=== PATIENT | female | born 1935 | race Caucasian/White ===

== ENCOUNTER → 2017-12-31 | Outpatient (CLI) | payer OTHER ==
[~2017-12-31] MED LIST: ACET325 PO; AMLO5 PO; ASCO500 PO; ASPI81CH PO; AVANDIA 8 MG QD; BISA10S PR; CALGLU500; CEFU250T47 PO; CEPH500 PO; CHLO25B PO; CHOL10002 PO; Calcium 600 +1 EAC1 PO; Cipro250 MG PO; DIPH50 PO; DOC250 PO; DOCU100 PO; FERR325 PO; FISH OIL 1,2001 EAC1 PO; FISH OIL 1,2001 EACH PO; FURO20 PO; FURO40 PO; GAVILAX17 GM PO; GLIM2; GLUC500 PO; GLYB5; Glucosamine H1500 MG PO; HUMALOG KW200 UNIT/1 SC; HYDR1TAB94 PO; Hair, Skin & N1 EACH PO; Hydrocodone-Ap1 EA23 PO; INSLI75/25 SC; IRON; ISOMON20 PO; Isosorbide Dini30 MG PO; LISI20 PO; LISI5 PO; LOSA25 PO; LOSA50 PO; Lasix20 MG PO; METO25 PO; METO25ER PO; MIRALAX17 GM PO; Macrobid 100 M100 MG PO; Milk Of Ma400 MG/5 M PO; NAC600 MG PO; NOVOLIN 70100 UNIT/1 SC; Norco 5-325 Ta1 EACH PO; ONDA8 PO; Oyst-Cal-500500 MG PO; POTCHL10ER PO; PROACE100 PO; RANI150 PO; RISE35; RISE35 PO; ROSI4; ROSU10TA PO; SENN187 PO; VALS80; VITA&DTO TOP; Zantac150 MG PO; Zofran Odt4 MG SL; Zofran Odt8 MG SL
[2017-12-31 16:31] LABS: BASOPHILS ABSOLUTE AUTO 0.08 K/mm3 (0.00-0.23); BASOPHILS PERCENT AUTO 1 % (0-2); EOSINOPHILS ABSOLUTE AUTO 0.82 K/mm3 (0.00-0.68); EOSINOPHILS PERCENT AUTO 10 % (0-6); Hematocrit 32.4 % (33.0-51.0); Hemoglobin 10.9 g/dL (11.5-16.0); IMMATURE GRAN ABSOLUTE AUTO 0.04 K/mm3 (0.00-0.10); IMMATURE GRAN PERCENT AUTO 1 % (0-1); LYMPHOCYTES PERCENT AUTO 21 % (21-46); MONOCYTES ABSOLUTE AUTO 0.75 K/mm3 (0.16-1.47); MONOCYTES PERCENT AUTO 9 % (4-13); Mean Corpuscular HGB 32.8 pg (26.0-34.0); Mean Corpuscular HGB Conc 33.6 g/dL (31.5-36.5); Mean Corpuscular Volume 98 fL (80-100); Mean Platelet Volume 10.3 fL (9.1-12.4); NEUTROPHILS ABSOLUTE AUTO 5.13 K/mm3 (1.96-9.15); NEUTROPHILS PERCENT AUTO 60 % (41-73); Platelet Count 252 K/mm3 (150-400); RDW Coefficient Variation 13.5 % (11.7-14.2); RDW Standard Deviation 48.3 fL (35.1-46.3); Red Blood Cell Count 3.32 M/mm3 (3.80-5.20); White Blood Cell Count 8.62 K/mm3 (4.00-11.30)
[2017-12-31 16:46] LABS: Anion Gap 8 mmol/L (6-16); Blood Urea Nitrogen 50 mg/dL (8-24); Bun/Creatinine Ratio 25.4 (12.0-20.0); CO2, Blood 29 mmol/L (21-32); Calcium, Blood 9.7 mg/dL (8.5-10.1); Chloride, Blood 99 mmol/L (98-108); Creatinine, Blood 1.97 mg/dL (0.40-1.00); Glomerular Filtration Rate 24 (60-); Glucose, Blood 302 mg/dL (70-99); Potassium, Blood 4.1 mmol/L (3.5-5.5); Sodium, Blood 136 mmol/L (136-145); Troponin I <0.017 ng/mL (0.000-0.040)
== END | disposition home or self-care (01) ==
LOC: LAB EV 16:28
PROVIDERS: Physician Assistant Surgical
DX: R42 Dizziness and giddiness (principal)
CPT/HCPCS: 80048; 84484; 85025

== ENCOUNTER 2019-02-03 13:26 | Inpatient (IN) | payer OTHER ==
[~2019-02-03] VITALS: Ht 167.6 cm; Wt 101.8 kg
[2019-02-03] MEDS ORDERED: Hair, Skin & N1 EACH PO (13:43)
[2019-02-03] MEDS ORDERED: Lopressor 25 mg25 MG PO ×2 (13:43)
[2019-02-03] MEDS ORDERED: NOVOLIN 70100 UNIT/2 SC (13:44)
[2019-02-03 14:11] LABS: BASOPHILS PERCENT AUTO 2 % (0-2); EOSINOPHILS ABSOLUTE AUTO 0.52 K/mm3 (0.00-0.68); EOSINOPHILS PERCENT AUTO 10 % (0-6); IMMATURE GRAN ABSOLUTE AUTO 0.01 K/mm3 (0.00-0.10); IMMATURE GRAN PERCENT AUTO 0 % (0-1); LYMPHOCYTES ABSOLUTE AUTO 1.35 K/mm3 (0.84-5.20); LYMPHOCYTES PERCENT AUTO 26 % (21-46); MONOCYTES ABSOLUTE AUTO 0.58 K/mm3 (0.16-1.47); MONOCYTES PERCENT AUTO 11 % (4-13); Mean Corpuscular HGB 31.6 pg (26.0-34.0); Mean Corpuscular HGB Conc 32.3 g/dL (31.5-36.5); Mean Corpuscular Volume 98 fL (80-100); Mean Platelet Volume 10.7 fL (9.1-12.4); NEUTROPHILS ABSOLUTE AUTO 2.55 K/mm3 (1.96-9.15); NEUTROPHILS PERCENT AUTO 50 % (41-73); Platelet Count 241 K/mm3 (150-400); RDW Coefficient Variation 14.3 % (11.7-14.2); RDW Standard Deviation 51.4 fL (35.1-46.3); Red Blood Cell Count 3.16 M/mm3 (3.80-5.20); White Blood Cell Count 5.11 K/mm3 (4.00-11.30)
[2019-02-03 14:18] LABS: Alanine Aminotransfer (ALT/SGP 19 U/L (12-78); Albumin, Blood 3.3 g/dL (3.4-5.0); Albumin/Globulin Ratio 0.8 (0.8-1.8); Alk Phos 77 U/L (50-136); Anion Gap 5 mmol/L (6-16); Aspartate Aminotrans (AST/SGOT 15 U/L (12-37); Bilirubin, Total 0.2 mg/dL (0.1-1.0); Blood Urea Nitrogen 40 mg/dL (8-24); Bun/Creatinine Ratio 25.2 (12.0-20.0); CO2, Blood 24 mmol/L (21-32); Calcium, Blood 8.5 mg/dL (8.5-10.1); Chloride, Blood 105 mmol/L (98-108); Creatinine, Blood 1.59 mg/dL (0.40-1.00); Globulin, Blood 3.9 g/dL (2.2-4.0); Glomerular Filtration Rate 33 (60-); Glucose, Blood 216 mg/dL (70-99); Potassium, Blood 5.5 mmol/L (3.5-5.5); Sodium, Blood 134 mmol/L (136-145); Total Protein, Blood 7.2 g/dL (6.4-8.2); Troponin I <0.015 ng/mL (0.000-0.040)
[2019-02-03] MEDS ORDERED: Pacerone100 MG PO ×2 (14:21)
[2019-02-03] MEDS ORDERED: DOC250 PO ×2 (14:24)
[2019-02-03] MEDS ORDERED: AMLO5 PO (14:24)
[2019-02-03] MEDS ORDERED: ELIQUIS2.5 MG PO (14:24)
[2019-02-03] MEDS ORDERED: TUMS500 MG PO (14:24)
[2019-02-03 14:25] LABS: Magnesium, Blood 2.1 mg/dL (1.6-2.4)
[2019-02-03] MEDS ORDERED: FISH OIL 500 M1 EAC3 PO (14:25)
[2019-02-03] MEDS ORDERED: BISA10S PR (14:25)
[2019-02-03] MEDS ORDERED: ROSU10TA PO (14:26)
[2019-02-03] MEDS ORDERED: Ranitidine HCl150 M1 PO (14:26)
[2019-02-03] MEDS ORDERED: Norco 7.5-3251 EACH PO (14:26)
[2019-02-03 14:27] LABS: Free Thyroxine 1.21 ng/dL (0.70-1.60); Thyroid Stimulating Hormone 26.8 uIU/mL (0.360-4.800)
[2019-02-03] MEDS ORDERED: GLUC500 PO (14:27)
[2019-02-03] MEDS ORDERED: FURO20 PO (14:27)
[2019-02-03] MEDS ORDERED: LOSA50 PO (14:27)
[2019-02-03] MEDS ORDERED: Synthroid112 MCG PO (14:27)
[2019-02-03] MEDS ORDERED: CHOL10002 PO (18:56)
[2019-02-03] MEDS ORDERED: HYDR1TAB94 PO (18:59)
[2019-02-03] MEDS ORDERED: FISH OIL 500 M1 EAC1 PO (19:00)
--- NOTE | 2019-02-03 20:29 | NUR ---
ASSUMED CARE OF PT, REPORT RECEIVED FROM PADMAJA ABREU. PT ALERT AND ORIENTED, PT'S SON AT BEDSIDE. PT REQUESTS CODE STATUS TO BE CHANGED TO LIMITED CODE, SHE DOES NOT WANT TO BE INTUBATED. PT CONTINUES TO BE BRADYCARDIC BUT ASYMPTOMATIC. SEE FULL ADMISSION ASSESSMENT.
--- NOTE | 2019-02-03 21:13 | NUR ---
CODE STATUS CHANGE. ORDER RECEIVED FROM BRANDON TO UPDATE PT'S CODE STATUS TO LIMITED PER PT'S REQUEST. PER PT ALL MEDICAL INTERVENTIONS OK EXCEPT INTUBATION. ORDER FOR Q6 CBG'S PLACED AND HUMOLOG JULIETA.
[2019-02-04 03:30] LABS: BASOPHILS ABSOLUTE AUTO 0.07 K/mm3 (0.00-0.23); BASOPHILS PERCENT AUTO 1 % (0-2); EOSINOPHILS ABSOLUTE AUTO 0.58 K/mm3 (0.00-0.68); EOSINOPHILS PERCENT AUTO 11 % (0-6); Hematocrit 30.4 % (33.0-51.0); Hemoglobin 10.1 g/dL (11.5-16.0); IMMATURE GRAN ABSOLUTE AUTO 0.01 K/mm3 (0.00-0.10); IMMATURE GRAN PERCENT AUTO 0 % (0-1); LYMPHOCYTES ABSOLUTE AUTO 1.68 K/mm3 (0.84-5.20); LYMPHOCYTES PERCENT AUTO 33 % (21-46); MONOCYTES ABSOLUTE AUTO 0.49 K/mm3 (0.16-1.47); MONOCYTES PERCENT AUTO 10 % (4-13); Mean Corpuscular HGB 32.5 pg (26.0-34.0); Mean Corpuscular HGB Conc 33.2 g/dL (31.5-36.5); Mean Corpuscular Volume 98 fL (80-100); Mean Platelet Volume 10.1 fL (9.1-12.4); NEUTROPHILS PERCENT AUTO 45 % (41-73); Platelet Count 232 K/mm3 (150-400); RDW Standard Deviation 50.1 fL (35.1-46.3); Red Blood Cell Count 3.11 M/mm3 (3.80-5.20); White Blood Cell Count 5.13 K/mm3 (4.00-11.30)
[2019-02-04 03:44] LABS: Prothrombin Time Results 10.6 Sec (9.7-11.5)
[2019-02-04 03:50] LABS: Albumin, Blood 3.1 g/dL (3.4-5.0); Albumin/Globulin Ratio 0.8 (0.8-1.8); Bilirubin, Total 0.4 mg/dL (0.1-1.0); Bun/Creatinine Ratio 24.6 (12.0-20.0); Calcium, Blood 8.7 mg/dL (8.5-10.1); Creatinine, Blood 1.42 mg/dL (0.40-1.00); Globulin, Blood 3.7 g/dL (2.2-4.0); Magnesium, Blood 2.1 mg/dL (1.6-2.4); Potassium, Blood 4.4 mmol/L (3.5-5.5); Total Protein, Blood 6.8 g/dL (6.4-8.2)
--- NOTE | 2019-02-04 06:15 | NUR ---
SHIFT SUMMARY HR CURRENTLY IN MID 50'S. PT HAD SEVERAL ASYMPTOMATIC PERIODS OF BRADYCARDIA WITH HR FROM 32-41. PT PLACED ON 2L O2 OVERNIGHT SATS DROPPED TO MID 80'S WHILE SLEEPING. PT REMAINS ALERT AND ORIENTED. PT DENIES PAIN, SOB, OR DIZZINESS. WILL REPORT TO DAYSHIFT NURSE.
--- NOTE | 2019-02-04 07:38 | NUR ---
CARE ASSUMED CARE AND REPORT ASSUMED FROM ERICK GIANG. PT SITTING UP IN BED WATCHING TV. NO SIGNS OF ACUTE DISTRESS. NSR, BBB, HR 50-60S. BP STABLE. AFEBRILE. PT UP TO BEDSIDE COMMODE WITH MINIMAL ASSIST. TALKED WITH PT ABOUT NEED TO REMAIN NPO UNTIL FURTHER PLAN FROM DOUBLE NEEDLE OPERATOR LOCKSTITCH; PT DISPLAYS UNDERSTANDING. NS INFUSING AT 50 ML/HR PER ORDER. LUNG SOUNDS CLEAR. CALL LIGHT WITHIN REACH. DEFIB PADS SECURED ON PT. WILL CONTINUE TO MONITOR.
--- NOTE | 2019-02-04 12:30 | NUR ---
ECHOCARDIOGRAM COMPLETE
--- NOTE | 2019-02-04 12:57 | NUR ---
REASSESSMENT PT SITTING UP IN BED VISITING WITH FAMILY. NO COMPLAINTS AND NO ACUTE DISTRESS AT THIS TIME. PT OUT OF BED WITH MINIMAL ASSIST. VOIDING IN BEDSIDE COMMODE WITH NO ISSUES. AFEBRILE. REMAINS IN NSR WITH BBB, HR 50-60S. SEEN BY MD MONTOYA THIS AM. ECHO, EKG, AND REPEAT TROPONIN COMPLETED. AWAITING STRESS TEST. NS CONTINUES TO INFUSE AT 50 ML/HR PER ORDER. WILL CONTINUE TO MONITOR.
--- NOTE | 2019-02-04 17:01 | NUR ---
REASSESSMENT 1630 - PT TAKEN DOWN FOR NUCLEAR STRESS TEST. VSS. NO ACUTE DISTRESS. PT UP TO BEDSIDE COMMODE WITH MINIMAL ASSIST. DENIES PAIN AT THIS TIME. CALL LIGHT WITHIN REACH. NS INFUSING AT 50 ML/HR PER ORDER. WILL CONITNUE TO MONITOR.
--- NOTE | 2019-02-04 18:19 | NUR ---
SHIFT SUMMARY VSS ENTIRE SHIFT. PT HAS BEEN IN NSR, WITH BBB, AND HR 50-70 ENTIRE SHIFT. STABLE AND NORMAL BP. AFEBRILE. NO C/O PAIN DURING SHIFT. PT HAD ECHO, EKG AND FIRST PART OF L[place] STRESS TEST COMPLETED TODAY. FAMILY BEDSIDE TO VISIT WITH HER. PT ABLE TO GET OUT OF BED AND ONTO BEDSIDE COMMODE WITH MINIMAL ASSIST. NS INFUSING AT 50 ML/HR PER ORDER. A/O X3, CALM AND COOPERATIVE ENTIRE SHIFT. WILL GIVE BEDSIDE, HANDOFF REPORT TO NOC RN.
--- NOTE | 2019-02-04 19:15 | NUR ---
REPORT RECIEVED FROM OFF GOING RN,KINJAL,. MONITOR INTACT SHOWING SINUS RHYTHM. HEART RATE 60'S. DENIES DISCOMFORT. LUNG SOUNDS CLEAR. RESPIRATIONS REGULAR AND EASY ON ROOM AIR. SPO2 96-98%. ABDOMEN SOFT WITH BOWEL SOUNDS FOUR QUADS. PAS TO LOWER EXTREMITIES. NO EDEMA NOTED PEDAL PULSES PRESENT. REPOSITIONS SELF IN BED. CONTINUE TO MONITOR AND REPORT CHANGE IN PATIENT CONDITION.
--- NOTE | 2019-02-05 00:05 | NUR ---
O2 PLACED AT 2L/MIN SECONDARY TO DECREASED SATURATIONS OF 84-89% CONTINUE TO MONITOR AND REPORT CHANGE IN PATIENT CONDITION.
[2019-02-05 03:32] LABS: BASOPHILS ABSOLUTE AUTO 0.07 K/mm3 (0.00-0.23); BASOPHILS PERCENT AUTO 1 % (0-2); EOSINOPHILS PERCENT AUTO 12 % (0-6); Hematocrit 30.8 % (33.0-51.0); Hemoglobin 9.9 g/dL (11.5-16.0); IMMATURE GRAN ABSOLUTE AUTO 0.01 K/mm3 (0.00-0.10); IMMATURE GRAN PERCENT AUTO 0 % (0-1); LYMPHOCYTES ABSOLUTE AUTO 1.46 K/mm3 (0.84-5.20); LYMPHOCYTES PERCENT AUTO 29 % (21-46); MONOCYTES ABSOLUTE AUTO 0.44 K/mm3 (0.16-1.47); MONOCYTES PERCENT AUTO 9 % (4-13); Mean Corpuscular HGB 31.4 pg (26.0-34.0); Mean Corpuscular HGB Conc 32.1 g/dL (31.5-36.5); Mean Corpuscular Volume 98 fL (80-100); Mean Platelet Volume 10.5 fL (9.1-12.4); NEUTROPHILS PERCENT AUTO 49 % (41-73); Platelet Count 223 K/mm3 (150-400); RDW Coefficient Variation 14.1 % (11.7-14.2); RDW Standard Deviation 50.4 fL (35.1-46.3); Red Blood Cell Count 3.15 M/mm3 (3.80-5.20); White Blood Cell Count 5.08 K/mm3 (4.00-11.30)
[2019-02-05 03:51] LABS: Albumin, Blood 3.1 g/dL (3.4-5.0); Albumin/Globulin Ratio 0.9 (0.8-1.8); Bilirubin, Total 0.2 mg/dL (0.1-1.0); Bun/Creatinine Ratio 27.3 (12.0-20.0); Calcium, Blood 8.4 mg/dL (8.5-10.1); Creatinine, Blood 1.28 mg/dL (0.40-1.00); Globulin, Blood 3.6 g/dL (2.2-4.0); Potassium, Blood 4.6 mmol/L (3.5-5.5); Total Protein, Blood 6.7 g/dL (6.4-8.2)
--- NOTE | 2019-02-05 06:15 | NUR ---
SHIFT SUMMARY: RESTS QUIETLY WHEN UNDISTURBED. MONITOR INTACT SHOWING SINUS RHYTHM HEART RATE 60'S-70'S. DENIES DISCOMFORT. LUNGS CLEAR RESPIRATIONS REGULAR AND EASY. ABDOMEN SOFT WITH BOWEL SOUNDS FOUR QUADS. UP TO BEDSIDE COMMODE WITH ONE ASSIST GAIT STEADY. VOIDS KRISTIN ODORIFOURUS URINE. PAS TO LOWER EXTREMITIES.NO EDEMA NOTED CONTINUE TO MONITOR AND REPORT CHANGE IN PATIENT CONDITION
--- NOTE | 2019-02-05 09:23 | NUR ---
CARE ASSUMED CARE AND REPORT ASSUMED FROM JEVON GIANG. PT A/O X 3, CALM AND COOPERATIVE. DENIES PAIN AT THIS TIME. VSS. NSR, HR 60S. AM EKG COMPLETED. MD NAM WAS BEDSIDE TO TALK WITH PT. PT NPO FOR STRESS TEST PART 2. UP TO CHAIR WITH MINIMAL ASSIST. BP STABLE. CALL LIGHT WITHIN REACH. AFEBRILE. LUNG SOUNDS CLEAR. AM MEDS HELD SINCE PT IS NPO AND STATES SHE GETS UPSET STOMACH WHEN TAKING MEDS ON EMPTY STOMACH. WILL CONTINUE TO MONITOR.
--- NOTE | 2019-02-05 10:43 | NUR ---
Pt ref bath at this time. Wanted heat turned up. Says she will see about having a bath once her test is done. RN notified.
--- NOTE | 2019-02-05 12:10 | NUR ---
REASSESSMENT PT SITTING UP IN RECLINER CHAIR. DENIES PAIN AT THIS TIME. VSS. NSR, HR 60S. NO COMPLAINTS AND NO ACUTE DISTRESS. NPO FOR STRESS TEST PART 2 AT 1230. CONTINUING TO HOLD MEDS UNTIL AFTER TEST. WILL CONTINUE TO MONITOR.
[2019-02-05 13:44] LABS: Source, Urine Voided
[2019-02-05 13:57] LABS: Bilirubin, Urine Neg (Neg); Blood, Urine 2+ (Neg); Glucose Qualitative, Urine Neg (Neg); Ketones, Urine Neg (Neg); Leukocyte Esterase, Urine 3+ (Neg); Nitrite, Urine Neg (Neg); Protein, Urine 2+ (Neg); Urobilinogen, Urine NORM (Normal)
--- NOTE | 2019-02-05 14:03 | NUR ---
TRANSFER REPORT CALLED TO [facility] IN PCU. VSS. BP DECREASING SINCE RECEIVING LOSARTAN. PT TO BE TRANSFERRED TO PCU 4. HAS FINISHED EATING LUNCH, ALONG WITH SOME FATTY FOOD.
[2019-02-05 14:13] LABS: Appearance, Urine Hazy (Clear); Color, Urine Yellow (P-Yellow)
[2019-02-05 14:14] LABS: Bacteria Many /hpf; Squamous Epithelial Cells Few /hpf (Few); White Blood Cells, Urine TNTC /hpf (0-5)
--- NOTE | 2019-02-05 14:24 | NUR ---
ASSUMED CARE Assumed care of pt upon arrival to unit at 1409. Telephone report received from Lydia GIANG. Pt arrived via wheelchair with Kami CSAE. Pt transferred from wheelchair to bed with SBA. Pt on room air. SR per telemetry with BBB. Bed in lowest position. Call light in reach. Pt denies need at this time.
--- NOTE | 2019-02-05 17:32 | NUR ---
SHIFT SUMMARY No changes since arrival to unit. No events per telemetry. Will continue to closely monitor until care handoff and bedside report with oncoming RN.
[2019-02-06 04:23] LABS: BASOPHILS ABSOLUTE AUTO 0.09 K/mm3 (0.00-0.23); BASOPHILS PERCENT AUTO 2 % (0-2); EOSINOPHILS ABSOLUTE AUTO 0.62 K/mm3 (0.00-0.68); EOSINOPHILS PERCENT AUTO 11 % (0-6); Hematocrit 30.9 % (33.0-51.0); Hemoglobin 10.1 g/dL (11.5-16.0); IMMATURE GRAN ABSOLUTE AUTO 0.01 K/mm3 (0.00-0.10); IMMATURE GRAN PERCENT AUTO 0 % (0-1); LYMPHOCYTES ABSOLUTE AUTO 1.47 K/mm3 (0.84-5.20); LYMPHOCYTES PERCENT AUTO 26 % (21-46); MONOCYTES ABSOLUTE AUTO 0.63 K/mm3 (0.16-1.47); MONOCYTES PERCENT AUTO 11 % (4-13); Mean Corpuscular HGB 32.6 pg (26.0-34.0); Mean Corpuscular HGB Conc 32.7 g/dL (31.5-36.5); Mean Corpuscular Volume 100 fL (80-100); Mean Platelet Volume 10.6 fL (9.1-12.4); NEUTROPHILS ABSOLUTE AUTO 2.88 K/mm3 (1.96-9.15); NEUTROPHILS PERCENT AUTO 50 % (41-73); Platelet Count 235 K/mm3 (150-400); RDW Coefficient Variation 13.8 % (11.7-14.2); RDW Standard Deviation 50.5 fL (35.1-46.3)
[2019-02-06 04:45] LABS: Albumin, Blood 2.9 g/dL (3.4-5.0); Albumin/Globulin Ratio 0.8 (0.8-1.8); Bilirubin, Total 0.4 mg/dL (0.1-1.0); Bun/Creatinine Ratio 26.7 (12.0-20.0); Calcium, Blood 8.5 mg/dL (8.5-10.1); Creatinine, Blood 1.16 mg/dL (0.40-1.00); Free Thyroxine 1.21 ng/dL (0.70-1.60); Globulin, Blood 3.5 g/dL (2.2-4.0); Potassium, Blood 4.8 mmol/L (3.5-5.5); Total Protein, Blood 6.4 g/dL (6.4-8.2)
[2019-02-06 04:50] LABS: Thyroid Stimulating Hormone 12.7 uIU/mL (0.360-4.800)
--- NOTE | 2019-02-06 05:59 | NUR ---
SHIFT SUMMARY: PATIENT DID WELL, COMPLIANT, VSS, WALKING TO RESTROOM WITH 1 FWW AND SBA. PATIENT COMPLIANT, BED LOW AND LOCKED, SKIN IS C/D/I
--- NOTE | 2019-02-06 14:47 | NUR ---
PT TO [facility]ART CENTER FOR ANGIO.
--- NOTE | 2019-02-06 16:39 | NUR ---
PT ARRIVED BACK TO PCU 4 VIA BED FROM [facility] POST ANGIO. PT AWAKE. DENIES ANY COMPLAINTS. RIGHT GROIN SITE WITH SILVINA DRESSING WITH SCANT OOZING NOTED, NO HEMATOMA, PAIN OR BLEEDING NOTED. PT NOTED TO HAVE BP OF 87/41. DR LOPEZ NOTIFIED AND STAT CT OF ABD ORDERED. HEART CENTER NURSE CALLED BACK AND REPORTED THEY HAD PREVISOULY GIVEN PT HYDRALAZINE X2 AND PLACED NITRO PASTE. NITRO PASTE REMOVED AT THIS TIME. DR LOPEZ REPORTS CONT WITH STAT CT TO R/O RETROPERITONEAL BLEED. BP NOW 101/42. SITE REMAINS UNCHANGED. FAMILY AT BEDSIDE AT THIS TIME.
--- NOTE | 2019-02-06 16:45 | NUR ---
PT TO IMAGING FOR CT ABD.
--- NOTE | 2019-02-06 16:49 | NUR ---
Patient gives student nurse permission to provide care on 02/06/2019.
--- NOTE | 2019-02-06 17:21 | NUR ---
SHIFT SUMMARY- PT A/OX4. PT REPORTS 5/10 CHRONIC BACK PAIN BUT DENIES NEED FOR PAIN MEDS. LS CLEAR, DIMINISHED IN THE BASES, ON RA, DENIES SOB. HRR. TELE SE WITH BBB AT 77. PT WITH ANGIO THIS AFTERNOON WITH SILVINA DRESSING OVER SITE, MINIMAL OOZING FRO SITE, NO SIGNS OF HEMATOMA, PAIN, OR BLEEDING. BP LOW AT ARRIVAL TO FLOOR, PT GIVEN NITRO PASTE AND HYDRALAZINE AT [facility]ART CENTER, NITRO PASTE REMOVED. CT ABD COMPLETED TO R/O BLEED. BLOOD PRESSURE NOW 131/52 1 HR POST ARRIVAL TO ROOM. NO STENTS PLACED PER HEART CENTER RN. PT REMAINS LYING FLAT AT THIS TIME. NO OTHER ACUTE CHANGES THIS SHIFT.
--- NOTE | 2019-02-06 17:26 | NUR ---
CT RESULTS CALLED TO DR LOPEZ PER HIS REQUEST. NO NOTED BLEED. BP NOW 131/52. NO SIGNS OF BLEEDING, HEMATOMA, SWELLING, OR PAIN.
--- NOTE | 2019-02-06 19:30 | NUR ---
ASSUMED CARE PT RESTING IN ROOM COMFORTABLY AT THIS TIME. PER DAY SHIFT RN PT IS STATUS POST ANGIO W/ SITE TO R GROIN. PT IS AOX4 AFTER PROCEDURE. VITAL SIGNS HAVE REMAINED STABLE. GROIN SITE INSPECTED W/ DAY RN, SITE WNL, SILVINA PATCH TO SITE AND NO BLOOD NOTED TO AREA. PER DAY SHIFT NO INTERVENTIONS WERE PLACED DURING ANGIO. SITE IS SOFT TO PALP NO HEMATOMAS NOTED. RESP EVEN UNLABORED ON RA SATS >92%. PT DENIES CP OR SOB. DENIES OTHER NEEDS. WILL CONT TO MONITOR. CALL LIGHT IN REACH.
--- NOTE | 2019-02-06 20:45 | NUR ---
ANGIO SITE BLEEDING PT WAS SAT UP TO ATTEMPT TO USE BEDPAN. ANGIO SITE NOTED TO HAVE STARTED BLEEDING. PT WAS LAID BACK IMMEDIATETLY AND PRESSURE APPLIED TO AREA. BLEEDING NOTED TO BE SLOW OOZING, NO PULSATING NOTED. SILVINA PATCH SATURATED WITH BLOOD. NO HEMATOMA NOTED TO SITE. SURROUNDING TISSUE NOTED TO BE SOFT TO PALP. PT REPORTS TENDERNESS TO AREA, NOT INCREASED FROM BEORE. PRESSURE HELD FOR 15 MIN SITE INSPECTED, NO FURTHER BLEEDING NOTED. GAUZE PAD APPLIED NEW TEGADERM APPLIED TO AREA. PT EDUCATED ON NEED TO REMAIN BEDFAST FOR OBSERVATION LONGER.
--- NOTE | 2019-02-07 05:34 | NUR ---
SHIFT SUMMARY PT SLEEPING IN ROOM COMFORTABLY. PT SLEPT WELL T/O NIGHT. AT APPROX 2030 ATTEMPTED TO SIT PT UP AFTER STATUS POST ANGIO. BLEEDING TO R GROIN SITE NOTED. PT LAID BACK FLAT AND PRESSURE APPLIED. BLEEDING WAS NOT ARTERIAL. NEW DRESSING PLACED. NO BLEEDING WAS NOTED TO SITE T/O NIGHT. PT NOW ABLE TO SIT UPRIGHT AT 45 DEGREE ANGLE WITH FEET ELEVATED. PT DOES NOT WANT TO STAND YET AT THIS POINT. REPORTS WILL STAND LATER THIS AM. RESP EVEN UNLABORED ON RA SATS >92%. DENIES PAIN, OTHER THAN TENDERNESS TO GROIN SITE. SITE WNL NO HEMATOMAS NOTED. CALL LIGHT WITHIN REACH.
[2019-02-07 05:42] LABS: BASOPHILS ABSOLUTE AUTO 0.08 K/mm3 (0.00-0.23); BASOPHILS PERCENT AUTO 1 % (0-2); EOSINOPHILS ABSOLUTE AUTO 0.57 K/mm3 (0.00-0.68); EOSINOPHILS PERCENT AUTO 9 % (0-6); Hematocrit 31.1 % (33.0-51.0); Hemoglobin 10.2 g/dL (11.5-16.0); IMMATURE GRAN ABSOLUTE AUTO 0.03 K/mm3 (0.00-0.10); IMMATURE GRAN PERCENT AUTO 1 % (0-1); LYMPHOCYTES ABSOLUTE AUTO 1.08 K/mm3 (0.84-5.20); LYMPHOCYTES PERCENT AUTO 16 % (21-46); MONOCYTES ABSOLUTE AUTO 0.64 K/mm3 (0.16-1.47); MONOCYTES PERCENT AUTO 10 % (4-13); Mean Corpuscular HGB 31.6 pg (26.0-34.0); Mean Corpuscular HGB Conc 32.8 g/dL (31.5-36.5); Mean Platelet Volume 10.3 fL (9.1-12.4); NEUTROPHILS ABSOLUTE AUTO 4.19 K/mm3 (1.96-9.15); NEUTROPHILS PERCENT AUTO 64 % (41-73); Platelet Count 229 K/mm3 (150-400); RDW Coefficient Variation 14.1 % (11.7-14.2); RDW Standard Deviation 49.5 fL (35.1-46.3); Red Blood Cell Count 3.23 M/mm3 (3.80-5.20); White Blood Cell Count 6.59 K/mm3 (4.00-11.30)
[2019-02-07 05:49] LABS: Mean Corpuscular Volume 96 fL (80-100)
[2019-02-07 06:38] LABS: Albumin, Blood 3.2 g/dL (3.4-5.0); Albumin/Globulin Ratio 0.9 (0.8-1.8); Bilirubin, Total 0.3 mg/dL (0.1-1.0); Bun/Creatinine Ratio 23.8 (12.0-20.0); Calcium, Blood 8.8 mg/dL (8.5-10.1); Creatinine, Blood 1.26 mg/dL (0.40-1.00); Globulin, Blood 3.4 g/dL (2.2-4.0); Potassium, Blood 4.6 mmol/L (3.5-5.5); Total Protein, Blood 6.6 g/dL (6.4-8.2)
--- NOTE | 2019-02-07 11:20 | NUR ---
Call to [facility] at the request of both Joycelyn Mendoza (site planner) and Michelle Miller ([facility] site planner). Gave an update on the pt's current condition, and mobility ability demonstrated this morning by the patient, who was OOB to the chair for breakfast and also got into the shower this morning with the assistance of the EXECUTIVE ASSISTANT. The pt is using a walker for mobility, which she states is her baseline.
[2019-02-07] MEDS ORDERED: ACET325 PO (13:13)
[2019-02-07] MEDS ORDERED: NITR100CA PO ×2 (13:14)
--- NOTE | 2019-02-07 14:24 | NUR ---
Discharge instructions and new medicatons were reviewed with the patient .. She stated that she had no questions at this time. Call to [facility] at this time to ask if the facility had any questions or concerns regarding the pt's return to her home today. There were none. Pt's IV was dc'd and the quality assurance monitor chassis removed in anticipation of discharge. The pt states that her neice will be here in about half an hour to take her back home.
--- NOTE | 2019-02-07 14:54 | NUR ---
SPOKE WITH THE PT'S KHANHLILLY WHO IS HERE TO PICK THE PT UP AND TAKE HER HOME. Explained that the pt's discharge instructions for follow up appointments and medications changes are in her packet. the neice verbalized understanding of this and also mentioned that she knew about the follow up for the heart monitor to be placed on February 13.
== END 2019-02-07 14:58 | disposition home or self-care (01) | DRG 287 ==
LOC: ER 13:26 → ICUW 16:37 → PCU 02-05 13:07 → ICUW 02-05 13:22 → PCU 02-05 14:06
PROVIDERS: Emergency Medicine; Family Medicine; ADMIT Hospitalist
PROC: B2111ZZ Fluoroscopy of Multiple Coronary Arteries using Low Osmolar Contrast (ICD-10-PCS; principal; 2019-02-06)
DX: R00.1 Bradycardia, unspecified (principal); I49.49 Other premature depolarization; Z95.5 Presence of coronary angioplasty implant and graft; E11.9 Type 2 diabetes mellitus without complications; I95.9 Hypotension, unspecified; E03.9 Hypothyroidism, unspecified; D64.9 Anemia, unspecified; I25.10 Atherosclerotic heart disease of native coronary artery without angina pectoris; N18.3 Chronic kidney disease, stage 3 (moderate); I12.9 Hypertensive chronic kidney disease with stage 1 through stage 4 chronic kidney disease, or unspecified chronic kidney disease; I48.0 Paroxysmal atrial fibrillation
CPT/HCPCS: 36415; 71045; 74176; 78452; 80053; 81001; 82947; 83735; 84439; 84443; 84484; 85025; 85610; 87077; 87086; 87186; 93005; 93010; 93017; 93306; 93459; 99152; 99153; 99285-25; A9500; C1769; C1894; J0360; J0461; J0706; J1644; J2250; J2785; J3010; J7030; Q9967

== ENCOUNTER 2019-02-07 22:13 | Inpatient (IN) | payer OTHER ==
[~2019-02-07] VITALS: Ht 167.6 cm; Wt 101.5 kg
[~2019-02-07 22:13] MED LIST changes: +ELIQUIS2.5 MG PO; +FISH OIL 500 M1 EAC1 PO; +FISH OIL 500 M1 EAC3 PO; +Lopressor 25 mg25 MG PO; +NITR100CA PO; +NOVOLIN 70100 UNIT/2 SC; +Norco 7.5-3251 EACH PO; +Pacerone100 MG PO; +Ranitidine HCl150 M1 PO; +Synthroid112 MCG PO; +TUMS500 MG PO
[2019-02-07 22:57] LABS: BASOPHILS ABSOLUTE AUTO 0.04 K/mm3 (0.00-0.23); BASOPHILS PERCENT AUTO 0 % (0-2); EOSINOPHILS ABSOLUTE AUTO 0.52 K/mm3 (0.00-0.68); EOSINOPHILS PERCENT AUTO 4 % (0-6); Hematocrit 32.9 % (33.0-51.0); Hemoglobin 10.9 g/dL (11.5-16.0); IMMATURE GRAN ABSOLUTE AUTO 0.03 K/mm3 (0.00-0.10); IMMATURE GRAN PERCENT AUTO 0 % (0-1); LYMPHOCYTES ABSOLUTE AUTO 0.28 K/mm3 (0.84-5.20); LYMPHOCYTES PERCENT AUTO 2 % (21-46); MONOCYTES ABSOLUTE AUTO 0.67 K/mm3 (0.16-1.47); MONOCYTES PERCENT AUTO 5 % (4-13); Mean Corpuscular HGB 32.1 pg (26.0-34.0); Mean Corpuscular HGB Conc 33.1 g/dL (31.5-36.5); Mean Corpuscular Volume 97 fL (80-100); Mean Platelet Volume 10.7 fL (9.1-12.4); NEUTROPHILS ABSOLUTE AUTO 11.51 K/mm3 (1.96-9.15); NEUTROPHILS PERCENT AUTO 88 % (41-73); Platelet Count 239 K/mm3 (150-400); RDW Coefficient Variation 13.9 % (11.7-14.2); RDW Standard Deviation 49.3 fL (35.1-46.3); White Blood Cell Count 13.05 K/mm3 (4.00-11.30)
[2019-02-07 23:09] LABS: Albumin, Blood 3.7 g/dL (3.4-5.0); Albumin/Globulin Ratio 0.9 (0.8-1.8); Bilirubin, Total 0.2 mg/dL (0.1-1.0); Bun/Creatinine Ratio 25.5 (12.0-20.0); Creatinine, Blood 1.41 mg/dL (0.40-1.00); Potassium, Blood 4.4 mmol/L (3.5-5.5); Total Protein, Blood 7.7 g/dL (6.4-8.2)
[2019-02-08 02:27] LABS: Source, Urine Catheter
[2019-02-08 02:30] LABS: Appearance, Urine Cloudy (Clear); Bilirubin, Urine Neg (Neg); Blood, Urine 3+ (Neg); Color, Urine Yellow (P-Yellow); Glucose Qualitative, Urine Neg (Neg); Ketones, Urine Neg (Neg); Leukocyte Esterase, Urine 3+ (Neg); Nitrite, Urine Pos (Neg); Protein, Urine 3+ (Neg); Urobilinogen, Urine NORM (Normal)
[2019-02-08 02:53] LABS: Bacteria Many /hpf; Squamous Epithelial Cells Few /hpf (Few); White Blood Cells, Urine TNTC /hpf (0-5)
[2019-02-08 05:32] LABS: Troponin I 0.075 ng/mL (0.000-0.040)
--- NOTE | 2019-02-08 07:40 | NUR ---
SHIFT SUMMARY: PT NEW ED ADMIT TONIGHT. PT WAS JUST D/C'd FOR BRADYCARDIA RESULTING IN CARDIAC CATH. DRESSING STILL IN PLACE TO R FEMORAL ARTERY, C/D/I, BRUISING NOTED. NO OTHER SKIN ISSUES OR WOUNDS. PT DOES NOT HAVE ANY EMESIS TONIGHT, PT REPORTS EMESIS IS DARK GREEN IN COLOR. CLEAR LIQUID DIET, PT TOLERATES WATER WELL. NO OTHER CHANGES TO REPORT. WILL CONT TO MONITOR AND PROVIDE CARE UNTIL PRESUMED BY ONCOMING RN.
--- NOTE | 2019-02-08 11:07 | NUR ---
Spiritual care visit conducted. Patient is lying in bed and alert. Patient openly shared about her current medical condition, her housing situation, and her sabianist background. Patient mentioned in conversation that she did not feel like a very good Spiritism. So I explored this issue with patient who allowed me to share appropriate scriptures that speak the issue. I listened empathically, provided pastoral diet counselor and prayer. Patient responded well to all interventions and showed signs of restored georges.
--- NOTE | 2019-02-08 17:12 | NUR ---
SHIFT SUMMARY THE PATIENT PRESENTED THIS AM WITH VITALS WNL, A&O X4 AND WITH DIMINISHED LUNG SOUNDS. THE PATIENT HAS SLEPT MOST OF THE SHIFT AND HAS ONLY ONE COMPLAINT OF NAUSEA TODAY AND RECEIVED MEDICATIONS PRESCRIBED. THE PATIENT'S FAMILY CAME AND VISITED WITH THE PATIENT THIS AFTERNOON. THE PATIENT IS VISITING AT THIS TIME, WILL CONTINUE TO MONITOR.
[2019-02-09 05:25] LABS: BASOPHILS ABSOLUTE AUTO 0.04 K/mm3 (0.00-0.23); BASOPHILS PERCENT AUTO 1 % (0-2); EOSINOPHILS ABSOLUTE AUTO 1.02 K/mm3 (0.00-0.68); EOSINOPHILS PERCENT AUTO 12 % (0-6); Hematocrit 27.4 % (33.0-51.0); Hemoglobin 8.7 g/dL (11.5-16.0); IMMATURE GRAN ABSOLUTE AUTO 0.03 K/mm3 (0.00-0.10); IMMATURE GRAN PERCENT AUTO 0 % (0-1); LYMPHOCYTES ABSOLUTE AUTO 0.86 K/mm3 (0.84-5.20); LYMPHOCYTES PERCENT AUTO 10 % (21-46); MONOCYTES ABSOLUTE AUTO 0.63 K/mm3 (0.16-1.47); MONOCYTES PERCENT AUTO 7 % (4-13); Mean Corpuscular HGB 31.2 pg (26.0-34.0); Mean Corpuscular HGB Conc 31.8 g/dL (31.5-36.5); Mean Corpuscular Volume 98 fL (80-100); Mean Platelet Volume 11.3 fL (9.1-12.4); NEUTROPHILS ABSOLUTE AUTO 6.06 K/mm3 (1.96-9.15); NEUTROPHILS PERCENT AUTO 70 % (41-73); Platelet Count 189 K/mm3 (150-400); RDW Coefficient Variation 14.3 % (11.7-14.2); Red Blood Cell Count 2.79 M/mm3 (3.80-5.20); White Blood Cell Count 8.64 K/mm3 (4.00-11.30)
[2019-02-09 05:51] LABS: Albumin, Blood 2.8 g/dL (3.4-5.0); Albumin/Globulin Ratio 0.8 (0.8-1.8); Bilirubin, Total 0.4 mg/dL (0.1-1.0); Bun/Creatinine Ratio 21.4 (12.0-20.0); Creatinine, Blood 1.87 mg/dL (0.40-1.00); Globulin, Blood 3.3 g/dL (2.2-4.0); Magnesium, Blood 2.1 mg/dL (1.6-2.4); Potassium, Blood 4.2 mmol/L (3.5-5.5); Total Protein, Blood 6.1 g/dL (6.4-8.2)
--- NOTE | 2019-02-09 06:29 | NUR ---
SHIFT SUMMARY PT A/O. SBA TO GERARDO GRACE. DENIED N/V. 1.5L O2 NC. SHE WAS ABLE TO SLEEP T/O NIGHT. CALL LIGHT IN REACH.
--- NOTE | 2019-02-09 18:07 | NUR ---
SHIFT SUMMARY IBETH DENIED NAUSEA AND PAIN THIS SHIFT. RECEIVED INSULIN FOR HIGH BLOOD SUGARS. SBA TO BR, HAD A BM THIS SHIFT. SHE WILL DC TOMORROW EARLY AFTERNOON BACK TO [facility]. TOOK MEDS PRESCRIBED, LILIA
[2019-02-10 05:32] LABS: BASOPHILS ABSOLUTE AUTO 0.04 K/mm3 (0.00-0.23); BASOPHILS PERCENT AUTO 1 % (0-2); EOSINOPHILS ABSOLUTE AUTO 0.97 K/mm3 (0.00-0.68); EOSINOPHILS PERCENT AUTO 16 % (0-6); Hematocrit 28.9 % (33.0-51.0); Hemoglobin 9.1 g/dL (11.5-16.0); IMMATURE GRAN ABSOLUTE AUTO 0.02 K/mm3 (0.00-0.10); IMMATURE GRAN PERCENT AUTO 0 % (0-1); LYMPHOCYTES PERCENT AUTO 13 % (21-46); MONOCYTES ABSOLUTE AUTO 0.72 K/mm3 (0.16-1.47); MONOCYTES PERCENT AUTO 12 % (4-13); Mean Corpuscular HGB Conc 31.5 g/dL (31.5-36.5); Mean Corpuscular Volume 98 fL (80-100); Mean Platelet Volume 11.1 fL (9.1-12.4); NEUTROPHILS ABSOLUTE AUTO 3.48 K/mm3 (1.96-9.15); NEUTROPHILS PERCENT AUTO 58 % (41-73); Platelet Count 210 K/mm3 (150-400); RDW Standard Deviation 50.7 fL (35.1-46.3); Red Blood Cell Count 2.94 M/mm3 (3.80-5.20); White Blood Cell Count 6.03 K/mm3 (4.00-11.30)
[2019-02-10 05:55] LABS: Albumin, Blood 2.8 g/dL (3.4-5.0); Albumin/Globulin Ratio 0.8 (0.8-1.8); Bilirubin, Total 0.7 mg/dL (0.1-1.0); Calcium, Blood 8.4 mg/dL (8.5-10.1); Creatinine, Blood 1.46 mg/dL (0.40-1.00); Globulin, Blood 3.6 g/dL (2.2-4.0); Magnesium, Blood 2.2 mg/dL (1.6-2.4); Phosphorus, Blood 2.8 mg/dL (2.5-4.9); Potassium, Blood 4.4 mmol/L (3.5-5.5); Total Protein, Blood 6.4 g/dL (6.4-8.2)
--- NOTE | 2019-02-10 07:20 | NUR ---
02/10/19 0615 ASSISTED UP TO BR FOR VOIDING. VITALS STABLE. SLEPT WELL MUCH OF SHIFT. UNEVNETFUL NIGHT.
--- NOTE | 2019-02-10 13:02 | NUR ---
PT AOX4 AND COOPERATIVE OF CARE NO DISTRESS NOTED. DISCHARGED AT 1255 WITH FAMILY TO TRANSPORT. PT 1 PERSON ASSIST AND WAS DOING WELL WITH AMBULATION. PT HAD ALL PAPERS REVIEWED AND EDUCATIONAL MATERIAL SENT WITH HER. NO NEW MEDICAITONS. PT ESCORTED TO S ENTRANCE IN WHEELCHAIR .
== END 2019-02-10 13:00 | disposition home or self-care (01) | DRG 392 ==
LOC: ER 22:13 → MEDS 02-08 03:06
PROVIDERS: Emergency Medicine; Hospitalist; Physician Assistant; ADMIT Family Medicine
DX: A08.4 Viral intestinal infection, unspecified (principal); N39.0 Urinary tract infection, site not specified; I12.9 Hypertensive chronic kidney disease with stage 1 through stage 4 chronic kidney disease, or unspecified chronic kidney disease; E11.22 Type 2 diabetes mellitus with diabetic chronic kidney disease; N18.3 Chronic kidney disease, stage 3 (moderate); I25.10 Atherosclerotic heart disease of native coronary artery without angina pectoris; K57.30 Diverticulosis of large intestine without perforation or abscess without bleeding; K44.9 Diaphragmatic hernia without obstruction or gangrene; E03.9 Hypothyroidism, unspecified; I48.0 Paroxysmal atrial fibrillation; E78.5 Hyperlipidemia, unspecified; K21.9 Gastro-esophageal reflux disease without esophagitis; E11.319 Type 2 diabetes mellitus with unspecified diabetic retinopathy without macular edema; E11.42 Type 2 diabetes mellitus with diabetic polyneuropathy; Z95.1 Presence of aortocoronary bypass graft; D63.1 Anemia in chronic kidney disease
CPT/HCPCS: 36415; 51701; 71046; 74019; 74176; 80053; 81001; 82947; 83605; 83690; 83735; 84100; 84484; 85025; 87077; 87086; 87186; 93005; 93010; 96365-59; 96375-59; 96376-59; 97110; 97162; 97530; 99285-25; J0696; J1815; J2405; J7030

== ENCOUNTER → 2019-03-14 | Outpatient (CLI) | payer OTHER ==
[2019-03-14 17:17] LABS: Creatinine, Urine Random 48.3 mg/dL (27.00-270.00)
[2019-03-14 17:19] LABS: Microalb/Creat Ratio UR, Rand 140.58 mg/g (0.000-30.000); Microalbumin, Random Urine 67.9 mg/L (0.000-20.000)
== END | disposition home or self-care (01) ==
LOC: LAB SHORT 15:26 → LAB 15:26
PROVIDERS: Family Medicine
DX: E11.9 Type 2 diabetes mellitus without complications (principal)
CPT/HCPCS: 82043; 82570

== ENCOUNTER 2019-11-06 20:22 | Inpatient (IN) | payer OTHER ==
[~2019-11-06] VITALS: Ht 167.6 cm; Wt 98.6 kg
[2019-11-06 20:46] LABS: BASOPHILS ABSOLUTE AUTO 0.08 K/mm3 (0.00-0.23); BASOPHILS PERCENT AUTO 2 % (0-2); EOSINOPHILS ABSOLUTE AUTO 0.31 K/mm3 (0.00-0.68); EOSINOPHILS PERCENT AUTO 6 % (0-6); Hematocrit 30.9 % (33.0-51.0); IMMATURE GRAN ABSOLUTE AUTO 0.02 K/mm3 (0.00-0.10); IMMATURE GRAN PERCENT AUTO 0 % (0-1); LYMPHOCYTES ABSOLUTE AUTO 1.47 K/mm3 (0.84-5.20); LYMPHOCYTES PERCENT AUTO 29 % (21-46); MONOCYTES ABSOLUTE AUTO 0.65 K/mm3 (0.16-1.47); MONOCYTES PERCENT AUTO 13 % (4-13); Mean Corpuscular HGB 32.3 pg (26.0-34.0); Mean Corpuscular HGB Conc 32.4 g/dL (31.5-36.5); Mean Corpuscular Volume 100 fL (80-100); Mean Platelet Volume 10.5 fL (9.1-12.4); NEUTROPHILS ABSOLUTE AUTO 2.55 K/mm3 (1.96-9.15); NEUTROPHILS PERCENT AUTO 50 % (41-73); Platelet Count 258 K/mm3 (150-400); RDW Coefficient Variation 14.3 % (11.7-14.2); RDW Standard Deviation 51.9 fL (35.1-46.3); White Blood Cell Count 5.08 K/mm3 (4.00-11.30)
[2019-11-06 21:00] LABS: International Normalized Ratio 0.97; Prothrombin Time Results 10.3 Sec (9.7-11.5)
[2019-11-06 21:02] LABS: Troponin I <0.015 ng/mL (0.000-0.040)
[2019-11-06 21:10] LABS: Alanine Aminotransfer (ALT/SGP 24 U/L (12-78); Albumin, Blood 3.2 g/dL (3.4-5.0); Albumin/Globulin Ratio 0.8 (0.8-1.8); Alk Phos 106 U/L (50-136); Anion Gap 7 mmol/L (6-16); Aspartate Aminotrans (AST/SGOT 16 U/L (12-37); Bilirubin, Total 0.2 mg/dL (0.1-1.0); Blood Urea Nitrogen 62 mg/dL (8-24); Bun/Creatinine Ratio 27.4 (12.0-20.0); CO2, Blood 18 mmol/L (21-32); Calcium, Blood 8.7 mg/dL (8.5-10.1); Chloride, Blood 112 mmol/L (98-108); Creatinine, Blood 2.26 mg/dL (0.40-1.00); Globulin, Blood 4.2 g/dL (2.2-4.0); Glomerular Filtration Rate 22 (60-); Glucose, Blood 102 mg/dL (70-99); Potassium, Blood 6.3 mmol/L (3.5-5.5); Sodium, Blood 137 mmol/L (136-145); Total Protein, Blood 7.4 g/dL (6.4-8.2)
[2019-11-06] MEDS ORDERED: BISA10S PR (21:28)
[2019-11-06] MEDS ORDERED: MILK OF MA400 MG/5 M PO (21:29)
[2019-11-06] MEDS ORDERED: MYLANTA GAS MIN42 MG PO (21:29)
[2019-11-06] MEDS ORDERED: GLUC500 PO (21:31)
[2019-11-06] MEDS ORDERED: GENTEAL TEARS 015 M1 BOTHEYES (21:31)
[2019-11-06] MEDS ORDERED: OMEPRAZOLE20 MG PO (21:32)
[2019-11-06] MEDS ORDERED: GENPREOPSU RIGHTEYE (21:33)
[2019-11-06 22:14] LABS: Thyroid Stimulating Hormone 0.268 uIU/mL (0.360-4.800)
[2019-11-07 05:41] LABS: Troponin I <0.015 ng/mL (0.000-0.040)
--- NOTE | 2019-11-07 05:54 | NUR ---
SHIFT SUMMARY PT ARRIVED FROM ER AND SLIDER SHEET USED TO TRANSFER PT TO BED; PT ALERT; COMPLIANT W/ CARE; FLAT AFFECT; FOLLOWS COMMANDS; PT ON RA; O2 SATS >93; PT DENIES CHEST PAIN; PT SLEPT ON AND OFF IN BETWEEN INTERVENTIONS; 600 POTASSIUM OF 6.3; PROVIDER NOTIFIED; NEW ORDERS TO BE GIVEN PK DR. KIMBROUGH IN ROOM TO SEE PT; CALL LIGHT IN REACH; BED IN LOWEST POSITION; WILL CONTINUE TO MONITOR CLOSELY UNTIL HAND OFF TO DAY SHIFT RN
[2019-11-07 06:01] LABS: Anion Gap 9 mmol/L (6-16); Blood Urea Nitrogen 61 mg/dL (8-24); Bun/Creatinine Ratio 27.2 (12.0-20.0); CO2, Blood 17 mmol/L (21-32); Calcium, Blood 9.2 mg/dL (8.5-10.1); Chloride, Blood 114 mmol/L (98-108); Creatinine, Blood 2.24 mg/dL (0.40-1.00); Glomerular Filtration Rate 22 (60-); Glucose, Blood 97 mg/dL (70-99); Potassium, Blood 6.3 mmol/L (3.5-5.5); Sodium, Blood 140 mmol/L (136-145)
--- NOTE | 2019-11-07 06:39 | NUR ---
UPDATE PROVIDER ENTERED STAT ORDERS PER PK FOR DEXTROSE AND INSULIN; AWAITING VERIFICATION FROM PHARMACY
--- NOTE | 2019-11-07 07:30 | NUR ---
ASSUMED CARE: PT RESTING IN BED AT THIS TIME. NIGHT CAREER PORTALS TEACHER CONTACTED COORDINATOR FOR NEW IV SITE. NIGHT RN TREATED CRITICAL POTASSIUM. DENIES NEEDS OR CONCERNS AT THIS TIME.
--- NOTE | 2019-11-07 18:02 | NUR ---
SHIFT SUMMARY: PT RESTING IN BED. SHE HAS BEEN AMBULATING TO RESTROOM T/O DAY AND SHOWERED. POTASSIUM NORMALIZED THIS SHIFT. DR RAMIREZ. PHARMACY STATES HER EYE DROPS ARE NOT AVAIALABLE HERE. CALL TO [facility] TO SEE IF SOMEONE CAN BRING THEM IN FOR HER. [employer] THERE SAID THEY COULD BUT DID NOT SAY WHEN. THEY ARE AWARE OF ROOM NUMBER. NO FURTHER NEEDS OR CONCERNS AT THIS TIME.
--- NOTE | 2019-11-08 03:47 | NUR ---
SHIFT SUMMARY PT A&O; TAKES TIME TO RESPOND; FLAT AFFECT; HOWEVER RESPONDS APPROPRIATELY; APPEARS IMPROVED FROM PREVIOUS SHIFT; CALLS APPROPRIATELY; SBA W/ FWW FOR BATHROOM PRIVILEGES; NO ACUTE CHANGES; DENIES CHEST PAIN; VSS; O2 SATS >93 ON RA; C/O HIP PAIN MID SHIFT; REPOSITIONED AND GIVEN TYLENOL PER EMAR; PT SLEPT A FEW HOURS AFTERWARDS; CALL LIGHT IN REACH; BED IN LOWEST POSITION; WILL CONTINUE TO MONITOR CLOSELY UNTIL HAND OFF TO DAY SHIFT RN.
--- NOTE | 2019-11-08 10:00 | NUR ---
REPORT FROM RICKEY GIANG, ASSUMED PT CARE.
--- NOTE | 2019-11-08 10:55 | NUR ---
PT RESTING IN POSITION COMFORT. RESP EVEN AND NON LABORED.
--- NOTE | 2019-11-08 12:05 | NUR ---
LUNCH TRAY PROVIDED. PT SITTING AT BEDSIDE.
--- NOTE | 2019-11-08 12:30 | NUR ---
ROOM ASSIGNMENT REVEIVED FROM HOUSE SUP RE STATUS CHANGE. PT ASSIGNED TO 331.
--- NOTE | 2019-11-08 12:47 | NUR ---
LAB SPECIMEN DRAWN FROM 18G TO AN.
[2019-11-08 13:41] LABS: Bun/Creatinine Ratio 26.8 (12.0-20.0); Calcium, Blood 8.9 mg/dL (8.5-10.1); Creatinine, Blood 1.98 mg/dL (0.40-1.00); Potassium, Blood 5.9 mmol/L (3.5-5.5)
--- NOTE | 2019-11-08 13:57 | NUR ---
IVF STARTED PER EMAR. PT RESTING IN POSITION OF COMFORT. DENIES NEEDS. STAFF ON MEDICAL FLOOR AWARE OF PT TX. WILL CALL FOR REPORT.
--- NOTE | 2019-11-08 14:01 | NUR ---
SPOKE WITH DR BOWEN RE PTS POTASSIUM RESULT. PLAN TO ORDER KAYEXALATE.
--- NOTE | 2019-11-08 14:07 | NUR ---
REPORT TO KAUSHIK GIANG.
--- NOTE | 2019-11-08 14:13 | NUR ---
PT TO 331 VIA WC.
--- NOTE | 2019-11-08 14:51 | NUR ---
REPORT FROM MAGUE MCCAIN RN. PT UP TO ROOM IN W/C. 1 PERSON ASSIST TO BED. KAYEXALATE GIVEN PER EMAR FOR K+ 5.9. PT RESTING IN BED WATCHING TV, CALL LIGHT IN REACH. REPORT GIVEN TO RUPA AGUILERA RN ASSUMING CARE FOR REMAINDER OF SHIFT.
--- NOTE | 2019-11-08 15:34 | NUR ---
1330 PT TRANSFERRE FROM PCU THIS SHIFT. SHE IS ALERT AND ORIENTED. SHE CAN AMBULATE WITH SBA. SHE IS IN NO DISTRESS AND DENIED PAIN.
[2019-11-08 17:13] LABS: Bun/Creatinine Ratio 26.5 (12.0-20.0); Calcium, Blood 9.1 mg/dL (8.5-10.1); Creatinine, Blood 2.11 mg/dL (0.40-1.00); Potassium, Blood 5.8 mmol/L (3.5-5.5)
--- NOTE | 2019-11-08 17:46 | NUR ---
PT CBG WAS 60 AT DINNER. PATIENT REPORTED NO DISTRESS. ORANGE JUICE GIVEN AND DINNER SERVED. PATIENT SBA TO BSC. SHE IS ABLE TO EXPRESS ANY NEEDS.
--- NOTE | 2019-11-08 19:59 | NUR ---
RECEIVED CALL FROM TELEMETRY STATED PT'S HR AT 35. PT. C/O DIZZINESS AND SOB. NOTIFIED CHERIE HUITRON NP. CHERIE CAME IN TO SEE PT. SEE NEW ORDERS.
[2019-11-08 20:26] LABS: Troponin I <0.015 ng/mL (0.000-0.040)
[2019-11-08 20:32] LABS: Potassium, Blood 6.7 mmol/L (3.5-5.5)
--- NOTE | 2019-11-08 20:43 | NUR ---
PT. TRANSFERRED TO PCU 3. REPORT GIVEN TO TERRANCE GIANG.
--- NOTE | 2019-11-08 21:47 | NUR ---
PT ARRIVED FROM MEDICAL FLOOR DUE TO SYMPTOMATIC BRADYCARDIA; BEDS EXCHANGED AND PT REMAINS IN BED; PT STATED SHE HAD SOB BUT FEELS CURRENTLY FEELS IMPROVED; CHERIE HUITRON AT BEDSIDE; NEW ORDERS GIVEN; DR. KIMBROUGH CONSULTED; BLADDER SCAN ORDER; INSULIN, DEXTROSE, CALCIUM CHORIDE ADMINISTERED TO ADDRESS POTASSIUM LEVEL OF 6.7; PT A&O; ANSWERING APPROPRIATELY; NSR W/ HR 50'S PER OCC THER; WILL CONTINUE TO MONITOR CLOSELY
--- NOTE | 2019-11-08 22:55 | NUR ---
UPDATE PT VOMITTING AND DIARRHEA; VILLARREAL PLACED PER PHYSICIAN ORDER
[2019-11-08 22:56] LABS: Potassium, Blood 5.9 mmol/L (3.5-5.5)
[2019-11-08 23:05] LABS: Source, Urine Catheter
[2019-11-08 23:07] LABS: Bilirubin, Urine Neg (Neg); Blood, Urine 3+ (Neg); Glucose Qualitative, Urine Neg (Neg); Ketones, Urine Neg (Neg); Leukocyte Esterase, Urine 3+ (Neg); Nitrite, Urine Neg (Neg); Protein, Urine 2+ (Neg); Specific Gravity, Urine 1.005 (1.003-1.022); Urobilinogen, Urine NORM (Normal)
[2019-11-08 23:14] LABS: Appearance, Urine Hazy (Clear); Color, Urine Yellow (P-Yellow); Red Blood Cells, Urine 0-2 /hpf (0-2); Squamous Epithelial Cells Few /hpf (Few); White Blood Cells, Urine TNTC /hpf (0-5)
[2019-11-08 23:15] LABS: Bacteria Many /hpf
--- NOTE | 2019-11-09 | NUR ---
UPDATE PT CBG OF 46; PROVIDER NOTIFIED; JUICE GIVEN; CBG 45; D 50 ADMINISTERED PER ORDERS; DR. KIMBROUGH AND CHERIE HUITRON, TABLE COVER FOLDER AT BEDSIDE; NEW ORDERS GIVEN; PT ALERT AND TALKING TO PROVIDERS; UA SENT FOLLOWING VILLARREAL PLACEMENT; N/V AND DIARRHEA IMPROVED AFTER ZOFRAN; PT IS IN NSR W/ HR 70; CALL LIGHT IN REACH; BED IN LOWEST POSITION
[2019-11-09 03:13] LABS: CPK Creatine Kinase 24 U/L (26-193); Uric Acid, Blood 3.9 mg/dL (2.6-6.0)
[2019-11-09 03:26] LABS: Alanine Aminotransfer (ALT/SGP 26 U/L (12-78); Albumin, Blood 2.8 g/dL (3.4-5.0); Albumin/Globulin Ratio 0.8 (0.8-1.8); Alk Phos 89 U/L (50-136); Anion Gap 4 mmol/L (6-16); Aspartate Aminotrans (AST/SGOT 17 U/L (12-37); Bilirubin, Direct <0.1 mg/dL (0.0-0.3); Bilirubin, Indirect Unable to Calculate mg/dL (0.1-0.7); Bilirubin, Total 0.2 mg/dL (0.1-1.0); Blood Urea Nitrogen 49 mg/dL (8-24); Bun/Creatinine Ratio 24.4 (12.0-20.0); CO2, Blood 24 mmol/L (21-32); Calcium, Blood 9.3 mg/dL (8.5-10.1); Chloride, Blood 113 mmol/L (98-108); Creatinine, Blood 2.01 mg/dL (0.40-1.00); Globulin, Blood 3.7 g/dL (2.2-4.0); Glomerular Filtration Rate 25 (60-); Glucose, Blood 105 mg/dL (70-99); Phosphorus, Blood 3.8 mg/dL (2.5-4.9); Potassium, Blood 6.7 mmol/L (3.5-5.5); Sodium, Blood 141 mmol/L (136-145); Total Protein, Blood 6.5 g/dL (6.4-8.2)
[2019-11-09 04:01] LABS: PCO2 Arterial 43.5 mmHg (35-45); PO2 Arterial 88.4 mmHg (80-100); pH Blood Arterial 7.36 (7.35-7.45)
--- NOTE | 2019-11-09 04:26 | NUR ---
UPDATE CH POTASSIUM 6.7; AND NOTIFIED; NEW ORDERS GIVEN; ABG ORDERED; POTASSIUM 6.4; D 50 AND INSULIN ORDERED; CBG Q 1HR UNTIL AM; PT A&O; VSS;
--- NOTE | 2019-11-09 06:03 | NUR ---
SHIFT SUMMARY PT CURRENTLY SLEEPING; VSS; REMAINED IN NSR W/ HR 70'S; NOTIFIED OF AM POTASSIUM OF 5.6; D 5 INFUSING AT 5O ML/HR; CALL LIGHT IN REACH; BED IN LOWEST POSITION; WILL CONTINUE TO MONITOR CLOSELY UNTIL HAND OFF TO DAY SHIFT RN.
--- NOTE | 2019-11-09 10:36 | NUR ---
IN THE ROOM TO ASSESS PT AND GET CONSENT FOR PROCEDURE.
--- NOTE | 2019-11-09 18:42 | NUR ---
SHIFT SUMMARY PT REMAINS A&O, VSS, RESP UNLABORED, SINUS 1ST DEGREE BBB. ON ROOM AIR. URINE OUTPUT WNL. BLOOD GLUCOSE LEVELS HAVE STABALIZED AND HAVE BEEN CHANGED TO ACHS THIS EVENING. KCL @1715 WAS 5.0, D5 @50 ML/HR INFUSING. 20 G POWERGLIDE WAS PLACED TO XIAO. RENAL U/S WAS COMPLETED TODAY PER 'S ORDERS. PT ON BEDREST W/Q2 TURNS. NO OTHER ACUTE CHANGES, WCTM, AND REPORT TO NIRMAL RN,CALL LIGHT IN REACH.
[2019-11-10 04:04] LABS: Hematocrit 24.8 % (33.0-51.0); Hemoglobin 8.2 g/dL (11.5-16.0)
[2019-11-10 04:20] LABS: Albumin, Blood 2.6 g/dL (3.4-5.0); Anion Gap 6 mmol/L (6-16); Blood Urea Nitrogen 47 mg/dL (8-24); Bun/Creatinine Ratio 20.6 (12.0-20.0); CO2, Blood 27 mmol/L (21-32); Calcium, Blood 8.3 mg/dL (8.5-10.1); Chloride, Blood 108 mmol/L (98-108); Creatinine, Blood 2.28 mg/dL (0.40-1.00); Glomerular Filtration Rate 22 (60-); Glucose, Blood 110 mg/dL (70-99); Magnesium, Blood 1.8 mg/dL (1.6-2.4); Phosphorus, Blood 3.9 mg/dL (2.5-4.9); Potassium, Blood 4.6 mmol/L (3.5-5.5); Sodium, Blood 141 mmol/L (136-145)
--- NOTE | 2019-11-10 04:32 | NUR ---
PATIENT HAS BEEN REPOSITIONED EVERY 2 HOURS THROUGHOUT THE NIGHT, EXCEPT FOR ONCE WHEN SHE DECLINED TO BE TURNED. SHE WOKE EASILY FOR ALL CARE. HER CALL LIGHT HAS BEEN WITHIN REACH ALL NIGHT. NO ACUTE CHANGES. HER 2099 LAB RETURNED WITH HER POTASSIUM AT 5, AND NOW HER 310 POTASSIUM IS 4.6. HER H&H HAS ALSO DROPPED TO 8.2/ 24.8, FROM 10.0/30.9 4 DAYS AGO.
--- NOTE | 2019-11-10 16:52 | NUR ---
EVENING NOTE PT ALERT AND ORIENTED. SR. NO BRADYCARDIA NOTED. VSS. PT UP TO CHAIR X1. SHE WAS MILDLY DIZZY WITH SITTING UP. CHECKED VSS. BP WNL. HEART RYTHM 80'S. SHE SAT UP FOR ABOUT AN HOUR. PT AFFECT FLAT ALMOST DEPRESSED. POOR EYE CONTACT. FAMILY HERE. SHE BARELY TALKED WITH THEM. CONTINUE POT.
--- NOTE | 2019-11-10 21:50 | NUR ---
ASSUMED CARE Pt presents sitting in bed, watching tv. Denies pain or discomfort. Alert and oriented and able to express needs. Pt uses call light appropriately and conversing with staff appropriately. See shift assessment for detailed systems assessment. No acute concerns to note at this time. VSS. Breathing even and unlabored. Pt able to take medications whole with water. Bed rest at this time, encouraging pt to assist with repostions and rolling. Pt compliant at this time with assistance. Maya cath patent and draining. Elida care provided to pt. Will continue to monitor. call light in reach and bed is low and locked.
--- NOTE | 2019-11-11 01:46 | NUR ---
Per Dr. Carrillo's note; holding pt NPO this shift at TX for possible pacer placement.
[2019-11-11 04:12] LABS: Hematocrit 26.3 % (33.0-51.0); Hemoglobin 8.5 g/dL (11.5-16.0)
[2019-11-11 04:33] LABS: Albumin, Blood 2.7 g/dL (3.4-5.0); Anion Gap 7 mmol/L (6-16); Blood Urea Nitrogen 44 mg/dL (8-24); Bun/Creatinine Ratio 20.1 (12.0-20.0); CO2, Blood 27 mmol/L (21-32); Calcium, Blood 8.5 mg/dL (8.5-10.1); Chloride, Blood 105 mmol/L (98-108); Creatinine, Blood 2.19 mg/dL (0.40-1.00); Glomerular Filtration Rate 23 (60-); Glucose, Blood 90 mg/dL (70-99); Phosphorus, Blood 4.6 mg/dL (2.5-4.9); Potassium, Blood 3.8 mmol/L (3.5-5.5); Sodium, Blood 139 mmol/L (136-145)
--- NOTE | 2019-11-11 05:26 | NUR ---
Shift Summary No acute changes this shift, pt able to express needs, alert and oriented, VSS. No events on tele. Pt has been NPO since midnight for possible pacer placement today per dr. galeana's note. No changes from initial shift assessment. Pt remains breathing even and unlabored. Will continue to monitor until day RN assumes care.
--- NOTE | 2019-11-11 07:15 | NUR ---
pre pacer [facility] STAFF EHRE TO TRANSFER PT TO MACHINE LEAD BURNER FOR PLANNED PACER. DR CLEARY HERE WEL. PT AGREEABLE TO GO. CONTINUE POT.
--- NOTE | 2019-11-11 10:38 | NUR ---
POST PACEMAKER PLACEMENT PT RETUNRED FROM [facility]. AWAKE AND ALERT. BEDSIDE REPORT GIVEN. LEFT CHEST DRESSING CD&I. SLIGHT CREPITUS NOTED ALONG CLAVICLE. NO HEMATOMA OR SWELLING NOTED. AXILLA CLEAR OF BRUISING. ARM SLING APPLIED PER ORDER. CAUGHT PT UP ON LATE MORNING MEDICATIONS. WILL HOLD NPH UNTIL PT ABLE TO EAT LUNCH. CURRENT BLOOD SUGAR 78. PT DID NOT WANT A SNACK. TYLENOL GIVEN FOR PT LEFT ARM DISCOMFORT. DR Pao GONZALEZ HERE TO SEE PT. PT NSR ON MONITOR. PACEMAKER SETTING VERIFIED ACTIVE ON ECONOMIC SPECIALIST. LOW HEART RATE SETTING OF 60 REPORTED BY HEART CENTER. FAMILY AT BEDSIDE. CONTINUE POT.
--- NOTE | 2019-11-11 12:25 | NUR ---
WOUND NOTE PT LEFT CHEST PACERMAKER SITE CD&I. NO CREPITUS NOTED. NO HEMATOMA NOTED. LEFT ARM IN SLING PER ORDER. TYLENOL EFFECTIVE FOR WOUND PAIN. VS. CONTINUE POT.
--- NOTE | 2019-11-11 18:15 | NUR ---
EVENING NOTE PT RESTING QUIETLY. SR. NO PACING NOTED. LEFT CHEST PACER INCISION CD&I. NO SWELLING OR DRAINAGE NOTED. VSS. PT MOVING SELF IN BED. DENIED NEED FOR FURTHER PAIN CONTROL AFTER THE SINGLE DOSE OF TYLENOL. CONTINUE POT.
--- NOTE | 2019-11-11 20:15 | NUR ---
Assumed care Pt alert and oriented, able to make needs known with call light, VSS. Wound dressing to LCW found with small amount of yellow tinged drainage upon intial assessment. Pt denies pain at this time. No crepitus noted. No hematoma noted. L arm in sling per orders. Pt compliant with L arm restrictions.
[2019-11-12 03:47] LABS: BASOPHILS ABSOLUTE AUTO 0.04 K/mm3 (0.00-0.23); BASOPHILS PERCENT AUTO 1 % (0-2); EOSINOPHILS ABSOLUTE AUTO 0.41 K/mm3 (0.00-0.68); EOSINOPHILS PERCENT AUTO 6 % (0-6); Hematocrit 26.7 % (33.0-51.0); Hemoglobin 8.8 g/dL (11.5-16.0); IMMATURE GRAN ABSOLUTE AUTO 0.02 K/mm3 (0.00-0.10); IMMATURE GRAN PERCENT AUTO 0 % (0-1); LYMPHOCYTES ABSOLUTE AUTO 1.09 K/mm3 (0.84-5.20); LYMPHOCYTES PERCENT AUTO 16 % (21-46); MONOCYTES ABSOLUTE AUTO 0.98 K/mm3 (0.16-1.47); MONOCYTES PERCENT AUTO 14 % (4-13); Mean Corpuscular HGB 32.4 pg (26.0-34.0); Mean Corpuscular Volume 98 fL (80-100); Mean Platelet Volume 10.4 fL (9.1-12.4); NEUTROPHILS ABSOLUTE AUTO 4.44 K/mm3 (1.96-9.15); NEUTROPHILS PERCENT AUTO 64 % (41-73); Platelet Count 200 K/mm3 (150-400); RDW Coefficient Variation 13.3 % (11.7-14.2); RDW Standard Deviation 47.8 fL (35.1-46.3); Red Blood Cell Count 2.72 M/mm3 (3.80-5.20); White Blood Cell Count 6.98 K/mm3 (4.00-11.30)
[2019-11-12 04:02] LABS: Albumin, Blood 2.6 g/dL (3.4-5.0); Anion Gap 7 mmol/L (6-16); Blood Urea Nitrogen 43 mg/dL (8-24); Bun/Creatinine Ratio 19.4 (12.0-20.0); CO2, Blood 26 mmol/L (21-32); Calcium, Blood 8.4 mg/dL (8.5-10.1); Chloride, Blood 105 mmol/L (98-108); Creatinine, Blood 2.22 mg/dL (0.40-1.00); Glomerular Filtration Rate 22 (60-); Glucose, Blood 68 mg/dL (70-99); Magnesium, Blood 1.9 mg/dL (1.6-2.4); Phosphorus, Blood 4.3 mg/dL (2.5-4.9); Potassium, Blood 3.7 mmol/L (3.5-5.5); Sodium, Blood 138 mmol/L (136-145)
--- NOTE | 2019-11-12 06:02 | NUR ---
Shift Summary No acute events overnight. VSS. Alert and oriented. LCW site remains unchanged from initial assessment. Pt compliant with L arm restrictions. Pt able to sleep on and off throughout shift. Breathing even and unlabored on RA. Denies chest pain or pressure. No events on tele, no pacer spikes noted. Maya patent and draining. Maya remains for retention. Elida care provided this shift. Will continue to monitor until day RN assumes care.
--- NOTE | 2019-11-12 20:39 | NUR ---
SHIFT SUMMARY PT A&Ox4. CALM AND COOPERATIVE WITH CARE. PT RESTING IN BED THIS AM, UP IN CHAIR WITH PT. 1PERSON ASSIST TO BSC/CHAIR. DR CLEARY AT BEDSIDE THIS AM, REMOVED INITIAL DRESSING TO LEFT CHEST WALL SITE, REPLACED WITH SINGLE GAUZE PIECE AND TAPE VERTICAL AND HORIZONTAL ACROSS; NO DRAINAGE NOTED TO SITE AFTER DRESSING CHANGE THIS AM. PT REPORT "ALL OVER" PAIN THIS AM, MEDICATED x1 WITH NORCO WITH POSITIVE RESULTS, MASSAGE TO BLE, REPOSTIONING AND REST. PT DENIES SOB, SPO2 93-96% T/O SHIFT. PT REPORTS NAUSEA THIS AM, RECEIVED ZOFRAN PRIOR TO SHIFT CHANGES; NAUSEA RESOLVES ON OWN. PT RECEIVING IV ANTIBIOTICS. VILLARREAL PATENT AND DRAINING; NEW ORDERS TO D/C CHERELLE; CLARIFIED ORDERS WITH DR GONZALEZ VILLARREAL PLACED FOR RETENTION, CONTINUE WITH D/C AUGUSTIN AND STRAIGHT CATH PRN FOR RETENTION. VSS. NO OTHER ACUTE CHANGES NOTED DURING SHIFT. REPORT GIVEN TO ONCOMING RN.
[2019-11-13 03:52] LABS: BASOPHILS ABSOLUTE AUTO 0.05 K/mm3 (0.00-0.23); BASOPHILS PERCENT AUTO 1 % (0-2); EOSINOPHILS ABSOLUTE AUTO 0.41 K/mm3 (0.00-0.68); EOSINOPHILS PERCENT AUTO 6 % (0-6); Hematocrit 25.4 % (33.0-51.0); Hemoglobin 8.3 g/dL (11.5-16.0); IMMATURE GRAN ABSOLUTE AUTO 0.04 K/mm3 (0.00-0.10); IMMATURE GRAN PERCENT AUTO 1 % (0-1); LYMPHOCYTES ABSOLUTE AUTO 0.91 K/mm3 (0.84-5.20); LYMPHOCYTES PERCENT AUTO 13 % (21-46); MONOCYTES ABSOLUTE AUTO 0.89 K/mm3 (0.16-1.47); MONOCYTES PERCENT AUTO 13 % (4-13); Mean Corpuscular HGB Conc 32.7 g/dL (31.5-36.5); Mean Corpuscular Volume 98 fL (80-100); Mean Platelet Volume 10.5 fL (9.1-12.4); NEUTROPHILS ABSOLUTE AUTO 4.62 K/mm3 (1.96-9.15); NEUTROPHILS PERCENT AUTO 67 % (41-73); Platelet Count 206 K/mm3 (150-400); RDW Coefficient Variation 13.2 % (11.7-14.2); RDW Standard Deviation 46.7 fL (35.1-46.3); Red Blood Cell Count 2.59 M/mm3 (3.80-5.20); White Blood Cell Count 6.92 K/mm3 (4.00-11.30)
[2019-11-13 04:13] LABS: Albumin, Blood 2.5 g/dL (3.4-5.0); Anion Gap 8 mmol/L (6-16); Blood Urea Nitrogen 48 mg/dL (8-24); Bun/Creatinine Ratio 21.1 (12.0-20.0); CO2, Blood 25 mmol/L (21-32); Calcium, Blood 8.4 mg/dL (8.5-10.1); Chloride, Blood 104 mmol/L (98-108); Creatinine, Blood 2.28 mg/dL (0.40-1.00); Glomerular Filtration Rate 22 (60-); Glucose, Blood 93 mg/dL (70-99); Phosphorus, Blood 4.2 mg/dL (2.5-4.9); Potassium, Blood 3.9 mmol/L (3.5-5.5); Sodium, Blood 137 mmol/L (136-145)
--- NOTE | 2019-11-13 04:16 | NUR ---
SHIFT SUMMARY PT A&O; O2 SATS >93 ON RA; DIM LUNG SOUNDS IN BASES; DC'D VILLARREAL APPROXIMATELY 2029; VSS; TYLENOL ADMINISTERED FOR OP SITE PAIN PER EMAR; XIAO POWERGLIDE FLUSHING APPROPRIATELY; PT DENIES NEEDS AT THIS TIME; CALL LIGHT IN REACH; BED IN LOWEST POSITION; WILL CONTINUE TO MONITOR CLOSELY UNTIL HAND OFF TO DAY SHIFT RN.
--- NOTE | 2019-11-13 06:22 | NUR ---
UPDATE AT BEDSIDE TO SEE PT; NOTIFIED OF HGB OF 8.3; ORDERS TO NOTIFY HIM IF DROPS BELOW 8.0; NO ADDITIONAL ORDERS AT THIS TIME
--- NOTE | 2019-11-13 10:55 | NUR ---
PT OK FOR DISCHARGE TO [place] PER PT EVAL. AWAITING OT EVAL. IS CAN DC PER MD FAX MED ORDERS TO [phone] THIS GOES TO THE MED ROOM AT [facility]. ALSO WILL NEED WOUND CARE ORDERS SENT. TO THAT FAX IF ANY PROBLEMS CALL VANITA AT [phone] FRIDA THOMAS RN CARE MANAGER
--- NOTE | 2019-11-13 11:22 | NUR ---
Patient is sitting on a chair and alert. Patient tell me that she has had a pace maker installed and is recovering well. We talk about her return to [place] where she resides and the expectancy she has for seeing her friends again and sleeping in her own bed. I listen empathically and provide companionship and prayer. Patient responds well and shows signs of an elevated mood. I will continue to remain available to patient and family.
--- NOTE | 2019-11-13 14:29 | NUR ---
REPORT CALLED TO RENU
--- NOTE | 2019-11-13 14:29 | NUR ---
PT'S RIDE CALLED
--- NOTE | 2019-11-13 15:00 | NUR ---
PT D/C HOME WITH HOME HEATLH TO [facility]. PT EXPRESSED UNDERSTANDINT OF DC TEACHING, DENIES FURTHER NEEDS, IV AND POWERGLIDE REMOVED INTACT.
== END 2019-11-13 15:18 | disposition home health service (06) | DRG 242 ==
LOC: ER 20:22 → PCU 20:23 → MEDS 11-08 14:16 → PCU 11-08 20:40
PROVIDERS: Emergency Medicine; Family Medicine; Internal Medicine Nephrology; Nurse Practitioner Acute Care; Student in an Organized Health Care Education/Training Program; ADMIT Internal Medicine
PROC: 02HK3JZ Insertion of Pacemaker Lead into Right Ventricle, Percutaneous Approach (ICD-10-PCS; principal; 2019-11-11)
PROC: 0JH606Z Insertion of Pacemaker, Dual Chamber into Chest Subcutaneous Tissue and Fascia, Open Approach (ICD-10-PCS; principal; 2019-11-11)
PROC: 02H63JZ Insertion of Pacemaker Lead into Right Atrium, Percutaneous Approach (ICD-10-PCS; principal; 2019-11-11)
DX: I49.5 Sick sinus syndrome (principal); J96.01 Acute respiratory failure with hypoxia; N17.9 Acute kidney failure, unspecified; N18.4 Chronic kidney disease, stage 4 (severe); R33.9 Retention of urine, unspecified; E87.5 Hyperkalemia; I48.0 Paroxysmal atrial fibrillation; E03.9 Hypothyroidism, unspecified; E11.319 Type 2 diabetes mellitus with unspecified diabetic retinopathy without macular edema; E11.51 Type 2 diabetes mellitus with diabetic peripheral angiopathy without gangrene; K21.9 Gastro-esophageal reflux disease without esophagitis; I25.10 Atherosclerotic heart disease of native coronary artery without angina pectoris; E78.5 Hyperlipidemia, unspecified; E11.22 Type 2 diabetes mellitus with diabetic chronic kidney disease; Z95.1 Presence of aortocoronary bypass graft; E88.09 Other disorders of plasma-protein metabolism, not elsewhere classified; Z87.891 Personal history of nicotine dependence; I12.9 Hypertensive chronic kidney disease with stage 1 through stage 4 chronic kidney disease, or unspecified chronic kidney disease; Z79.4 Long term (current) use of insulin
CPT/HCPCS: 33208; 36415; 36600; 51702; 71045; 71046; 76770; 80048; 80053; 80069; 81001; 82248; 82374; 82435; 82550; 82803; 82947; 83690; 83735; 84100; 84132; 84295; 84443; 84484; 84550; 85014; 85018; 85025; 85610; 86038; 87077; 87086; 87186; 93005; 93010; 96374; 96375; 97110; 97116; 97162; 97166; 97535; 99152; 99153; 99285-25; A9270; A9270-GY; C1751; C1785; C1898; G0378; J0461; J0610; J0696; J0881; J1644; J1815; J1940; J2250; J2405; J3010; J3370; J7030; J7040; J7050; J7070; J7120; J7799

== ENCOUNTER 2019-12-04 09:58 | Emergency (ER) | payer OTHER ==
[~2019-12-04] VITALS: Ht 167.6 cm; Wt 97.5 kg
[~2019-12-04 09:58] MED LIST changes: +GENPREOPSU RIGHTEYE; +GENTEAL TEARS 015 M1 BOTHEYES; +MILK OF MA400 MG/5 M PO; +MYLANTA GAS MIN42 MG PO; +OMEPRAZOLE20 MG PO
[2019-12-04 10:32] LABS: BASOPHILS ABSOLUTE AUTO 0.06 K/mm3 (0.00-0.23); BASOPHILS PERCENT AUTO 0 % (0-2); EOSINOPHILS ABSOLUTE AUTO 0.21 K/mm3 (0.00-0.68); EOSINOPHILS PERCENT AUTO 2 % (0-6); Hematocrit 30.3 % (33.0-51.0); Hemoglobin 9.7 g/dL (11.5-16.0); IMMATURE GRAN ABSOLUTE AUTO 0.09 K/mm3 (0.00-0.10); IMMATURE GRAN PERCENT AUTO 1 % (0-1); LYMPHOCYTES ABSOLUTE AUTO 1.07 K/mm3 (0.84-5.20); LYMPHOCYTES PERCENT AUTO 8 % (21-46); MONOCYTES ABSOLUTE AUTO 1.57 K/mm3 (0.16-1.47); MONOCYTES PERCENT AUTO 11 % (4-13); Mean Corpuscular HGB 31.7 pg (26.0-34.0); Mean Corpuscular Volume 99 fL (80-100); Mean Platelet Volume 9.6 fL (9.1-12.4); NEUTROPHILS ABSOLUTE AUTO 10.77 K/mm3 (1.96-9.15); NEUTROPHILS PERCENT AUTO 78 % (41-73); Platelet Count 249 K/mm3 (150-400); RDW Coefficient Variation 15.1 % (11.7-14.2); RDW Standard Deviation 54.4 fL (35.1-46.3); Red Blood Cell Count 3.06 M/mm3 (3.80-5.20); White Blood Cell Count 13.77 K/mm3 (4.00-11.30)
[2019-12-04 10:45] LABS: Albumin, Blood 2.8 g/dL (3.4-5.0); Albumin/Globulin Ratio 0.6 (0.8-1.8); Bilirubin, Total 0.4 mg/dL (0.1-1.0); Bun/Creatinine Ratio 17.4 (12.0-20.0); Calcium, Blood 8.8 mg/dL (8.5-10.1); Creatinine, Blood 2.13 mg/dL (0.40-1.00); Globulin, Blood 4.5 g/dL (2.2-4.0); Potassium, Blood 3.6 mmol/L (3.5-5.5); Total Protein, Blood 7.3 g/dL (6.4-8.2)
[2019-12-04] MEDS ORDERED: Zofran4 MG PO (11:31)
== END 2019-12-04 11:55 | disposition home or self-care (01) ==
LOC: ER 09:58
PROVIDERS: Emergency Medicine
DX: M25.561 Pain in right knee (principal); E86.0 Dehydration; R11.2 Nausea with vomiting, unspecified; R19.7 Diarrhea, unspecified; E11.9 Type 2 diabetes mellitus without complications; I10 Essential (primary) hypertension; Z88.0 Allergy status to penicillin; Z88.2 Allergy status to sulfonamides; Z91.048 Other nonmedicinal substance allergy status; Z88.8 Allergy status to other drugs, medicaments and biological substances; Z79.899 Other long term (current) drug therapy; Z79.4 Long term (current) use of insulin; W22.8XXA Striking against or struck by other objects, initial encounter
CPT/HCPCS: 73562-RT; 80053; 85025; 99284-25; J7030

== ENCOUNTER 2019-12-10 09:19 | Inpatient (IN) | payer OTHER ==
[~2019-12-10] VITALS: Ht 167.6 cm; Wt 88.0 kg
[2019-12-10 09:54] LABS: BASOPHILS ABSOLUTE AUTO 0.11 K/mm3 (0.00-0.23); BASOPHILS PERCENT AUTO 1 % (0-2); Hematocrit 30.3 % (33.0-51.0); Hemoglobin 10.3 g/dL (11.5-16.0); LYMPHOCYTES ABSOLUTE AUTO 0.52 K/mm3 (0.84-5.20); LYMPHOCYTES PERCENT AUTO 2 % (21-46); MONOCYTES ABSOLUTE AUTO 1.15 K/mm3 (0.16-1.47); MONOCYTES PERCENT AUTO 5 % (4-13); Mean Corpuscular HGB 31.5 pg (26.0-34.0); Mean Platelet Volume 9.8 fL (9.1-12.4); Platelet Count 483 K/mm3 (150-400); RDW Coefficient Variation 14.8 % (11.7-14.2); RDW Standard Deviation 50.3 fL (35.1-46.3); Red Blood Cell Count 3.27 M/mm3 (3.80-5.20); White Blood Cell Count 23.75 K/mm3 (4.00-11.30)
[2019-12-10 09:55] LABS: EOSINOPHILS ABSOLUTE AUTO 0.08 K/mm3 (0.00-0.68); EOSINOPHILS PERCENT AUTO 0 % (0-6); IMMATURE GRAN ABSOLUTE AUTO 0.46 K/mm3 (0.00-0.10); IMMATURE GRAN PERCENT AUTO 2 % (0-1); Mean Corpuscular Volume 93 fL (80-100); NEUTROPHILS ABSOLUTE AUTO 21.43 K/mm3 (1.96-9.15); NEUTROPHILS PERCENT AUTO 90 % (41-73)
[2019-12-10] MEDS ORDERED: GLUC500 PO (10:18)
[2019-12-10 10:23] LABS: Albumin/Globulin Ratio 0.4 (0.8-1.8); Bilirubin, Total 0.7 mg/dL (0.1-1.0); Bun/Creatinine Ratio 29.6 (12.0-20.0); Calcium, Blood 8.3 mg/dL (8.5-10.1); Creatinine, Blood 2.26 mg/dL (0.40-1.00); Globulin, Blood 4.7 g/dL (2.2-4.0); Total Protein, Blood 6.7 g/dL (6.4-8.2)
[2019-12-10 11:01] LABS: Source, Urine Catheter
[2019-12-10 11:04] LABS: Bilirubin, Urine Neg (Neg); Blood, Urine 2+ (Neg); Glucose Qualitative, Urine Neg (Neg); Ketones, Urine 1+ (Neg); Leukocyte Esterase, Urine 2+ (Neg); Nitrite, Urine Pos (Neg); Protein, Urine 3+ (Neg); Urobilinogen, Urine 1+ (Normal)
[2019-12-10 11:12] LABS: Appearance, Urine Hazy (Clear); Color, Urine Yellow (P-Yellow); White Blood Cells, Urine 25-50 /hpf (0-5)
[2019-12-10 11:13] LABS: Bacteria Mod /hpf; Squamous Epithelial Cells Few /hpf (Few)
--- NOTE | 2019-12-10 12:37 | NUR ---
ED Palliative Care Consult. Spoke with Dr Chaney and discussed case. Plan for Pt to be admitted to hospital. Family and Pt may benefit from Advanced Care Planning. Pt resting on gurney upon arrival. Pt reports a tolerable 5/10 pain in her pelvic area. Pt also reports moderate nausea. Spoke with family outside of Pt's room prior to visit due to Pt receiving personal care. Discussed current POLST on file with family confirming Pt's wishes remain the same. POLST reads DNR with Limited Medical Interventions and No Tube Feedings. Family is agreeable with further discussion regarding Advanced Care Planning. Pt and family agreeable for Palliative Care to F/U when Pt is admitted to the floor. Palliative Care will F/U for Advanced Care Planning once admitted to the floor.
--- NOTE | 2019-12-10 12:58 | NUR ---
Late Entry from previous visit. Obtained copy of Power of Wheel Alignment Mechanic from family and faxed to medical records.
--- NOTE | 2019-12-10 18:11 | NUR ---
PT ARRIVED TO THE MEDICAL FLOOR FROM THE ER A/OX3, PLEASANT AND COOPERATIVE, PALE IN COLOR, VIA STRECHER, THE PT REPORTED THAT SHE WAS UNABLE TO STAND AT THIS TIME DUE TO NAUSEA AND WEAKNESS, PT ANSWERS QUESTIONS APPROPRIATLY, PT WAS ORIENTED TO THE ROOM LAYOUT AND CALL SYSTEM, CALL LIGHT IN REACH, THE PT DENIED ANY PAIN AT THIS TIME, THE PT WAS MEDICATED FOR N/V, THE PT APPEARS TO BE BREATHING EASILY ON RA AT THIS TIME, TELE APPLIED AND VERIFIED
[2019-12-11 05:46] LABS: Hematocrit 28.9 % (33.0-51.0); Hemoglobin 9.7 g/dL (11.5-16.0); Mean Corpuscular HGB 31.6 pg (26.0-34.0); Mean Corpuscular HGB Conc 33.6 g/dL (31.5-36.5); Mean Corpuscular Volume 94 fL (80-100); NRBC ABSOLUTE 0.02 K/mm3 (0.00-0.02); NRBC Auto 0.1 /100 WBC (0.0-0.2); Platelet Count 481 K/mm3 (150-400); RDW Coefficient Variation 15.5 % (11.7-14.2); RDW Standard Deviation 53.1 fL (35.1-46.3); Red Blood Cell Count 3.07 M/mm3 (3.80-5.20); White Blood Cell Count 25.98 K/mm3 (4.00-11.30)
--- NOTE | 2019-12-11 05:55 | NUR ---
BIOINFORMATICS DEVELOPER SUMMARY NO ACUTE CHANGES THIS SHIFT. PT AAOX4 AND PLEASANT. CONTINUES TO HAVE LOOSE INCONTINENT STOOLS. STOOL SAMPLE SENT TO LAB FOR GI PANEL. TREATED FOR PAIN X1 WITH TYLENOL. PT ALSO HAS OCCASIONAL DRY COUGH, UNABLE TO COLLECT SPUTUM SAMPLE THUS FAR. NO ACUTE CHANGES ON TELE. VSS, WILL CONTINUE TO MONITOR.
[2019-12-11 06:08] LABS: Albumin, Blood 1.8 g/dL (3.4-5.0); Albumin/Globulin Ratio 0.4 (0.8-1.8); Bilirubin, Total 0.5 mg/dL (0.1-1.0); Bun/Creatinine Ratio 33.7 (12.0-20.0); Calcium, Blood 8.2 mg/dL (8.5-10.1); Creatinine, Blood 2.02 mg/dL (0.40-1.00); Globulin, Blood 4.5 g/dL (2.2-4.0); Potassium, Blood 3.7 mmol/L (3.5-5.5); Total Protein, Blood 6.3 g/dL (6.4-8.2)
[2019-12-11 06:10] LABS: BAND PERCENT MAN 7 % (0-8); BASOPHILS PERCENT MAN 0 % (0-2); EOSINOPHILS ABSOLUTE MAN 0.25 K/mm3 (0.00-0.68); EOSINOPHILS PERCENT MAN 1 % (0-6); LYMPHOCYTES ABSOLUTE MAN 1.03 K/mm3 (0.84-5.20); LYMPHOCYTES PERCENT MAN 4 % (21-46); MONOCYTES ABSOLUTE MAN 0.51 K/mm3 (0.16-1.47); MONOCYTES PERCENT MAN 2 % (4-13); NEUTROPHILS ABSOLUTE MAN 24.16 K/mm3 (1.96-9.15); SEG NEUTROPHILS PERCENT MAN 86 % (41-73); TOTAL CELLS COUNTED 100
[2019-12-11 06:13] LABS: Campylobacter Sp Not Detected (NOT DETECT)
[2019-12-11 06:14] LABS: Adenovirus F 40/41 Not Detected (NOT DETECT); Astrovirus Not Detected (NOT DETECT); Cryptosporidium Not Detected (NOT DETECT); Cyclospora Cayetanensis Not Detected (NOT DETECT); E. Coli O157 Not Detected (NOT DETECT); Entamoeba Histolytica Not Detected (NOT DETECT); Enteroaggregative E. coli-EAEC Not Detected (NOT DETECT); Enteropathogenic E. coli-EPEC Not Detected (NOT DETECT); Enterotoxigenic E. coli-ETEC Not Detected (NOT DETECT); Giardia Lamblia Not Detected (NOT DETECT); Norovirus GI/GII Not Detected (NOT DETECT); Plesiomonas Shigelloides Not Detected (NOT DETECT); Rotavirus A Not Detected (NOT DETECT); Salmonella Sp Not Detected (NOT DETECT); Sapovirus Not Detected (NOT DETECT); Shiga Toxin-prod E. coli-STEC Not Detected (NOT DETECT); Shigella/Enteroin E. coli-EIEC Not Detected (NOT DETECT); Vibrio Cholerae Not Detected (NOT DETECT); Vibrio Sp Not Detected (NOT DETECT); Yersinia Enterocolitica Not Detected (NOT DETECT)
--- NOTE | 2019-12-11 16:43 | NUR ---
PT IS A/OX3, PLEASANT AND COOPERATIVE, THE PT HAS BEEN IN BED TODAY, STATED THAT AT THIS TIME SHE IS STILL TO WEAK TO GET UP, THE PT APPEARS TO BE BREATHING EASILY ON RA, THE PT DENIED ANY PAIN SO FAR TODAY, THE PT HAS HAD NO EMISIS TODAY, THE PT CONTINUES TO HAVE DIARRHEA, PT IS TOLERATING SMALL AMOUNTS OF CLEAR LIQUID DIET, CALL LIGHT IN REACH, WILL CONTINUE TO MONITOR AND ASSESS FOR CHANGES
--- NOTE | 2019-12-11 18:14 | NUR ---
Initial spiritual care note: Pt appears frail, but she tells me she has hope that she will continue to improve. She enjoys her independance and states that for the most part, her QOL is acceptable. She denied fears or concern, and appeared tired. Prayer provided at bedside. I will remain available.
--- NOTE | 2019-12-12 01:04 | NUR ---
BEGINNING SHIFT SUMMARY ASSUMED CARE OF PT AT 1900. PT IS A/O X4. FAMILY PRESENT ON ASSESSMENT. HEART SOUNDS REGULAR, TELEMETRY MONITORING SHOWED SINUS W/ BBB @ 88, PT HAD PACEMAKER PLACED 11/11/2019 PER PT. LUNG SOUNDS DIMINISHED, PT HAS PRODUCTIVE COUGH, NEW SPUTUM SAMPLE SENT. PT C/O NOT FEELING WELL, FAMILY STATED PT LOOKED MORE SICK TODAY THAN YESTERDAY, PT ALSO DIDNT HAVE AN APPETITE FOR DINNER. PT WAS ASSISTED TO BSC WITH 2P FWW AND GAITBELT, PT TOLERATED WELL. STOOL IS WATERY. PT IS CURRENTLY SLEEPING, CALL LIGHT IN REACH, BED IN LOWEST POSTION, WILL CONTINUE TO MONITOR.
--- NOTE | 2019-12-12 05:02 | NUR ---
END SHIFT SUMMARY NO ACUTE CHANGES NOTED T/O THE NIGHT. PT STRAIGHT CATHED FOR URINE SAMPLE, PT TOLERATED WELL. PT CONTINUES TO HAVE WATERY STOOLS AND A PRODUCTIVE COUGH. PT SLEPT T/O THE NIGHT. CALL LIGHT IN REACH, BED IN LOWEST POSTION, WILL CONTINUE TO MONITOR UNTIL DAYSHIFT NURSE ARRIVES.
[2019-12-12 09:21] LABS: Hematocrit 28.8 % (33.0-51.0); Hemoglobin 9.5 g/dL (11.5-16.0); Mean Corpuscular Volume 94 fL (80-100); Platelet Count 500 K/mm3 (150-400); RDW Coefficient Variation 15.8 % (11.7-14.2); RDW Standard Deviation 54.1 fL (35.1-46.3); Red Blood Cell Count 3.06 M/mm3 (3.80-5.20); White Blood Cell Count 21.86 K/mm3 (4.00-11.30)
[2019-12-12 09:39] LABS: Bun/Creatinine Ratio 28.7 (12.0-20.0); Calcium, Blood 8.3 mg/dL (8.5-10.1); Creatinine, Blood 1.78 mg/dL (0.40-1.00); Potassium, Blood 3.6 mmol/L (3.5-5.5)
[2019-12-12 09:43] LABS: BASOPHILS PERCENT MAN 0 % (0-2); EOSINOPHILS ABSOLUTE MAN 0.43 K/mm3 (0.00-0.68); EOSINOPHILS PERCENT MAN 2 % (0-6); LYMPHOCYTES ABSOLUTE MAN 0.87 K/mm3 (0.84-5.20); LYMPHOCYTES PERCENT MAN 4 % (21-46); METAMYELOCYTE ABSOLUTE MAN 0.43 K/mm3 (0.00-0.00); METAMYELOCYTE PERCENT MAN 2 % (0-0); MONOCYTES ABSOLUTE MAN 0.65 K/mm3 (0.16-1.47); MONOCYTES PERCENT MAN 3 % (4-13); MYELOCYTE ABSOLUTE MAN 0.21 K/mm3 (0.00-0.00); MYELOCYTE PERCENT MAN 1 % (0-0); NEUTROPHILS ABSOLUTE MAN 19.23 K/mm3 (1.96-9.15); SEG NEUTROPHILS PERCENT MAN 88 % (41-73); TOTAL CELLS COUNTED 100
--- NOTE | 2019-12-12 12:07 | NUR ---
DELIVERY MGR ASSESSMENT I AGREE WITH THE NURSING STUDENTS AM ASSESSMENT OF THE PATIENT
--- NOTE | 2019-12-12 16:28 | NUR ---
PT IS A/OX3, PLEASANT AND COPERATIVE, THE PT IS UP WITH MODERATE ASSIST TO THE BSC, PT IS VERY WEAK ON HER FEET, THE PT REPORTED SOME RIGHT KNEE PAIN THIS AM AND WAS MEDICATED WITH TYLENOL, THE PT APPEARED TO HAVE MORE OF A COUGH TODAY COMPARED TO YESTERDAY, MOSTLY NONPRODUCTIVE, PT DENIED ANY NAUSEA, AND WAS ABLE TO TOLERATE SMALL AMOUNTS OF THE CLEAR LIQUID DIET, CALL LIGHT IN REACH, WILL CONTINUE TO MONITOR AND ASSESS FOR CHANGES
--- NOTE | 2019-12-13 04:29 | NUR ---
SHIFT SUMMARY ASSUMED CARE OF PT AT 1900. PT IS A/O X3. PT STATES THAT SHE STILL DOESNT FEEL WELL BUT IS GETTING BETTER, STATES SHE HAS NUMBNESS IN LEGS DUE TO DM. HEART SOUNDS REGULAR, PT HAS PACEMAKER IN L CHEST, ON TELE SHOWING SINUS WITH BBB @ 68, DENIES CP. FINE CRACKLES AT THE BASES OF LUNGS, DENIES SOB, PT HAS MOIST HACKING COUGH, NONPRODUCTIVE, AWAITING SAMPLE TO SEND TO LAB. PT STILL C/O WATERY STOOLS. PT GOT UP TO COMMODE TWICE THIS SHIFT WITH 1P ASSIST. PT SLEPT MOST OF THE NIGHT, CALL LIGHT IN REACH, BED IN LOWEST POSTION, WILL CONTINUE TO MONITOR UNTIL DAYSHIFT NURSE ARRIVES.
[2019-12-13 08:09] LABS: Hemoglobin 9.2 g/dL (11.5-16.0); Mean Corpuscular HGB 30.7 pg (26.0-34.0); Mean Corpuscular HGB Conc 32.9 g/dL (31.5-36.5); Mean Corpuscular Volume 93 fL (80-100); Mean Platelet Volume 9.6 fL (9.1-12.4); Platelet Count 453 K/mm3 (150-400); RDW Coefficient Variation 15.8 % (11.7-14.2); RDW Standard Deviation 53.4 fL (35.1-46.3); White Blood Cell Count 14.87 K/mm3 (4.00-11.30)
[2019-12-13 08:30] LABS: BAND PERCENT MAN 4 % (0-8); BASOPHILS ABSOLUTE MAN 0.29 K/mm3 (0.00-0.23); BASOPHILS PERCENT MAN 2 % (0-2); Bun/Creatinine Ratio 26.5 (12.0-20.0); Calcium, Blood 8.5 mg/dL (8.5-10.1); Creatinine, Blood 1.62 mg/dL (0.40-1.00); EOSINOPHILS ABSOLUTE MAN 0.29 K/mm3 (0.00-0.68); EOSINOPHILS PERCENT MAN 2 % (0-6); LYMPHOCYTES ABSOLUTE MAN 0.74 K/mm3 (0.84-5.20); LYMPHOCYTES PERCENT MAN 5 % (21-46); MONOCYTES ABSOLUTE MAN 1.04 K/mm3 (0.16-1.47); MONOCYTES PERCENT MAN 7 % (4-13); NEUTROPHILS ABSOLUTE MAN 12.49 K/mm3 (1.96-9.15); Potassium, Blood 3.3 mmol/L (3.5-5.5); SEG NEUTROPHILS PERCENT MAN 80 % (41-73); TOTAL CELLS COUNTED 100
--- NOTE | 2019-12-13 09:30 | NUR ---
PT PLEASANT COOP A/O. NEICE IN ROOM. IS PLEASANT. SOME PAIN IN RT KNEE FROM OLD FALL, DENIES MED AT THIS TIME. WILL FOLLOW. H/R REG, NO MURMER NOTED. PER TELE NSR WITH BB RATE 71. LUNGS CRACKLES MID AND LOW RT SIDE. RESP EASY, UNLABORED. ON R.A. BT X4 LAST BM TODAY. STATES SOFT UNFORMED. INCONT STOOL AND URINE AT TIMES. USING 2 ASST BSC. BED IN LOW POSITION, CALL LITE IN REACH, CALLS APPROP.
[2019-12-13] MEDS ORDERED: CEFU500T30 PO (11:23)
[2019-12-13] MEDS ORDERED: ELIQUIS2.5 MG PO (11:24)
[2019-12-13] MEDS ORDERED: Anti-Diarrheal2 MG PO (11:25)
[2019-12-13] MEDS ORDERED: FAMO20 PO (11:25)
[2019-12-13] MEDS ORDERED: ONDA4ODT PO (11:26)
[2019-12-13] MEDS ORDERED: Florastor250 MG PO (11:26)
--- NOTE | 2019-12-13 17:35 | NUR ---
PT DISCHARGE TO [facility]. IV PULLED INTACT. TELE REMOVED . PT CLEANED AND DRESSED. OUT WITH TRANSPORT AT \[phone] CALLED REPORT TO MASOOD AT [facility] AT 1705 CALLED SIRISHA QUILES AT 1720.
== END 2019-12-13 17:40 | DRG 690 ==
LOC: ER 09:19 → MEDS 09:20
PROVIDERS: Emergency Medicine; ADMIT Family Medicine
DX: N39.0 Urinary tract infection, site not specified (principal); K51.00 Ulcerative (chronic) pancolitis without complications; N18.4 Chronic kidney disease, stage 4 (severe); B96.20 Unspecified Escherichia coli [E. coli] as the cause of diseases classified elsewhere; E11.22 Type 2 diabetes mellitus with diabetic chronic kidney disease; I48.91 Unspecified atrial fibrillation; R62.7 Adult failure to thrive; H10.9 Unspecified conjunctivitis; I25.10 Atherosclerotic heart disease of native coronary artery without angina pectoris; I12.9 Hypertensive chronic kidney disease with stage 1 through stage 4 chronic kidney disease, or unspecified chronic kidney disease; E03.9 Hypothyroidism, unspecified; Z95.0 Presence of cardiac pacemaker; Z95.1 Presence of aortocoronary bypass graft; Z95.5 Presence of coronary angioplasty implant and graft; Z88.0 Allergy status to penicillin; Z88.2 Allergy status to sulfonamides; Z88.8 Allergy status to other drugs, medicaments and biological substances; Z79.4 Long term (current) use of insulin; Z79.899 Other long term (current) drug therapy
CPT/HCPCS: 0097U; 36415; 71046; 74176; 80048; 80053; 81001; 82947; 83605; 83690; 83735; 85025; 87040; 87077; 87086; 87186; 96365; 96366; 96372; 96375; 96376; 97162; 97166; 97530; 99285-25; A9270; G0378; J0696; J1650; J1815; J2405; J3370; J3480; J7030; P9612

== ENCOUNTER → 2019-12-10 | Outpatient (CLI) | payer OTHER ==
[~2019-12-10] MED LIST changes: -FISH OIL 500 M1 EAC1 PO; +Fish Oil Conc1000 MG PO; +Zofran4 MG PO
[2019-12-10 14:21] LABS: Adenovirus F 40/41 Not Detected (NOT DETECT); Astrovirus Not Detected (NOT DETECT); Campylobacter Sp Not Detected (NOT DETECT); Cryptosporidium Not Detected (NOT DETECT); Cyclospora Cayetanensis Not Detected (NOT DETECT); E. Coli O157 Not Detected (NOT DETECT); Entamoeba Histolytica Not Detected (NOT DETECT); Enteroaggregative E. coli-EAEC Not Detected (NOT DETECT); Enteropathogenic E. coli-EPEC Not Detected (NOT DETECT); Enterotoxigenic E. coli-ETEC Not Detected (NOT DETECT); Giardia Lamblia Not Detected (NOT DETECT); Norovirus GI/GII Not Detected (NOT DETECT); Plesiomonas Shigelloides Not Detected (NOT DETECT); Rotavirus A Not Detected (NOT DETECT); Salmonella Sp Not Detected (NOT DETECT); Sapovirus Not Detected (NOT DETECT); Shiga Toxin-prod E. coli-STEC Not Detected (NOT DETECT); Shigella/Enteroin E. coli-EIEC Not Detected (NOT DETECT); Vibrio Cholerae Not Detected (NOT DETECT); Vibrio Sp Not Detected (NOT DETECT); Yersinia Enterocolitica Not Detected (NOT DETECT)
== END ==
LOC: LAB SHORT 08:30 → LAB 08:30 → LAB FUT 12-09 17:35 → EDSTATUS 12-09 17:35
PROVIDERS: Physician Assistant
DX: R19.7 Diarrhea, unspecified (principal); D64.9 Anemia, unspecified
CPT/HCPCS: 0097U; 87324

== ENCOUNTER 2020-01-07 12:40 | Day surgery (SDC) | payer OTHER ==
[~2020-01-07] VITALS: Ht 167.6 cm; Wt 83.6 kg
[~2020-01-07 12:40] MED LIST changes: +CEFU500T30 PO; +ELIQUIS2.5 M1 PO; +FAMO20 PO; +FAMO40 PO; -Fish Oil Conc1000 MG PO; +Florastor250 MG PO; +LEVSOD112 PO; +ONDA4ODT PO; -TUMS500 MG PO
--- NOTE | 2020-01-07 15:07 | NUR ---
01/07/20 1507 Cinthia Lovell IV AND FLUIDS WERE LEFT INTACT, PT DISCHARGED TO [facility] ED.
--- NOTE | 2020-01-07 15:30 | NUR ---
01/07/20 1530 Linette Chandler STOOL FOR CDIF WAS SENT-ORDER PLACED BY [facility], RN [facility] OFFICE
[2020-01-07] MEDS ORDERED: ACET325 PO (19:48)
[2020-01-07] MEDS ORDERED: TUMS500 MG PO (20:51)
[2020-01-07] MEDS ORDERED: FISH OIL 500 M1 EAC1 PO (20:51)
[2020-01-07] MEDS ORDERED: Anti-Diarrheal2 MG PO (20:53)
[2020-01-07] MEDS ORDERED: GLUC500 PO (20:54)
[2020-01-07] MEDS ORDERED: Hair, Skin & N1 EACH PO (20:55)
[2020-01-07] MEDS ORDERED: OMEP20ER PO (20:56)
[2020-01-07] MEDS ORDERED: VITAMIN D325 MCG PO (20:57)
[2020-01-07] MEDS ORDERED: PREDNISOLONE ACE5 ML RIGHTEYE (20:58)
[2020-01-07] MEDS ORDERED: Athenol325 MG PO (20:59)
[2020-01-07] MEDS ORDERED: BISA10S PR (21:00)
[2020-01-07] MEDS ORDERED: Eq Liquid Anta769 ML PO (21:01)
[2020-01-07] MEDS ORDERED: ONDA4ODT SL (21:01)
[2020-01-07] MEDS ORDERED: ELIQUIS2.5 M1 PO (22:02)
[2020-01-07] MEDS ORDERED: DOC250 PO (22:04)
[2020-01-07] MEDS ORDERED: Zantac150 MG PO (22:04)
[2020-01-07] MEDS ORDERED: LOSA50 PO (22:07)
[2020-01-07] MEDS ORDERED: NITR100CA PO (22:08)
[2020-01-07] MEDS ORDERED: FAMO20 PO (22:15)
[2020-01-07] MEDS ORDERED: GENTEAL TEARS 015 ML BOTHEYES (22:16)
[2020-01-07] MEDS ORDERED: Bacid1 EACH PO (22:17)
== END 2020-01-07 15:40 | disposition home or self-care (01) ==
LOC: ORSCSDS 12:40
PROVIDERS: Internal Medicine Gastroenterology
PROC: 0DB98ZX Excision of Duodenum, Via Natural or Artificial Opening Endoscopic, Diagnostic (ICD-10-PCS; principal; 2020-01-07 14:15)
PROC: 0DBE8ZX Excision of Large Intestine, Via Natural or Artificial Opening Endoscopic, Diagnostic (ICD-10-PCS; principal; 2020-01-07 14:15)
PROC: 0DB88ZX Excision of Small Intestine, Via Natural or Artificial Opening Endoscopic, Diagnostic (ICD-10-PCS; principal; 2020-01-07 14:15)
PROC: 0DBL8ZX Excision of Transverse Colon, Via Natural or Artificial Opening Endoscopic, Diagnostic (ICD-10-PCS; principal; 2020-01-07 14:15)
PROC: 0DB68ZX Excision of Stomach, Via Natural or Artificial Opening Endoscopic, Diagnostic (ICD-10-PCS; principal; 2020-01-07 14:15)
DX: R19.7 Diarrhea, unspecified (principal); R11.2 Nausea with vomiting, unspecified; R63.4 Abnormal weight loss; K52.9 Noninfective gastroenteritis and colitis, unspecified; D12.3 Benign neoplasm of transverse colon; Z86.010 Personal history of colon polyps; K44.9 Diaphragmatic hernia without obstruction or gangrene; K57.30 Diverticulosis of large intestine without perforation or abscess without bleeding; K64.8 Other hemorrhoids; I10 Essential (primary) hypertension; E11.9 Type 2 diabetes mellitus without complications; Z95.0 Presence of cardiac pacemaker; N18.3 Chronic kidney disease, stage 3 (moderate); I25.10 Atherosclerotic heart disease of native coronary artery without angina pectoris; Z79.4 Long term (current) use of insulin; Z79.899 Other long term (current) drug therapy
CPT/HCPCS: 82947; 88305; 88342; J2405; J2704; J7040; J7120

== ENCOUNTER 2020-01-07 15:34 | Inpatient (IN) | payer OTHER ==
[~2020-01-07] VITALS: Ht 172.7 cm; Wt 89.3 kg
[2020-01-07 17:09] LABS: BASOPHILS ABSOLUTE AUTO 0.12 K/mm3 (0.00-0.23); BASOPHILS PERCENT AUTO 1 % (0-2); EOSINOPHILS ABSOLUTE AUTO 0.01 K/mm3 (0.00-0.68); EOSINOPHILS PERCENT AUTO 0 % (0-6); Hematocrit 32.6 % (33.0-51.0); Hemoglobin 10.4 g/dL (11.5-16.0); IMMATURE GRAN ABSOLUTE AUTO 0.23 K/mm3 (0.00-0.10); IMMATURE GRAN PERCENT AUTO 1 % (0-1); LYMPHOCYTES ABSOLUTE AUTO 1.19 K/mm3 (0.84-5.20); LYMPHOCYTES PERCENT AUTO 5 % (21-46); MONOCYTES ABSOLUTE AUTO 0.76 K/mm3 (0.16-1.47); MONOCYTES PERCENT AUTO 3 % (4-13); Mean Corpuscular HGB 30.9 pg (26.0-34.0); Mean Corpuscular HGB Conc 31.9 g/dL (31.5-36.5); Mean Corpuscular Volume 97 fL (80-100); Mean Platelet Volume 9.2 fL (9.1-12.4); NEUTROPHILS ABSOLUTE AUTO 20.39 K/mm3 (1.96-9.15); NEUTROPHILS PERCENT AUTO 90 % (41-73); Platelet Count 535 K/mm3 (150-400); RDW Coefficient Variation 16.1 % (11.7-14.2); RDW Standard Deviation 57.1 fL (35.1-46.3); Red Blood Cell Count 3.37 M/mm3 (3.80-5.20)
[2020-01-07 17:28] LABS: Albumin, Blood 1.6 g/dL (3.4-5.0); Albumin/Globulin Ratio 0.4 (0.8-1.8); Bilirubin, Total 0.5 mg/dL (0.1-1.0); Bun/Creatinine Ratio 24.4 (12.0-20.0); Calcium, Blood 7.8 mg/dL (8.5-10.1); Creatinine, Blood 1.93 mg/dL (0.40-1.00); Globulin, Blood 4.1 g/dL (2.2-4.0); Potassium, Blood 3.1 mmol/L (3.5-5.5); Total Protein, Blood 5.7 g/dL (6.4-8.2)
[2020-01-07 18:03] LABS: Source, Urine Clean Catch
[2020-01-07 18:27] LABS: Bilirubin, Urine Neg (Neg); Blood, Urine 3+ (Neg); Glucose Qualitative, Urine Neg (Neg); Ketones, Urine Neg (Neg); Leukocyte Esterase, Urine 3+ (Neg); Nitrite, Urine Neg (Neg); Protein, Urine 2+ (Neg); Urobilinogen, Urine NORM (Normal)
[2020-01-07 18:44] LABS: Appearance, Urine Hazy (Clear); Color, Urine Yellow (P-Yellow)
[2020-01-07 18:45] LABS: Bacteria Many /hpf; Red Blood Cells, Urine 0-2 /hpf (0-2); Squamous Epithelial Cells Few /hpf (Few); White Blood Cells, Urine TNTC /hpf (0-5)
[2020-01-07] MEDS ORDERED: ACET325 PO (19:48)
[2020-01-07] MEDS ORDERED: FISH OIL 500 M1 EAC1 PO (20:51)
[2020-01-07] MEDS ORDERED: TUMS500 MG PO (20:51)
[2020-01-07] MEDS ORDERED: Anti-Diarrheal2 MG PO (20:53)
[2020-01-07] MEDS ORDERED: GLUC500 PO (20:54)
[2020-01-07] MEDS ORDERED: Hair, Skin & N1 EACH PO (20:55)
[2020-01-07] MEDS ORDERED: OMEP20ER PO (20:56)
[2020-01-07] MEDS ORDERED: VITAMIN D325 MCG PO (20:57)
[2020-01-07] MEDS ORDERED: PREDNISOLONE ACE5 ML RIGHTEYE (20:58)
[2020-01-07] MEDS ORDERED: Athenol325 MG PO (20:59)
[2020-01-07] MEDS ORDERED: BISA10S PR (21:00)
[2020-01-07] MEDS ORDERED: Eq Liquid Anta769 ML PO (21:01)
[2020-01-07] MEDS ORDERED: ONDA4ODT SL (21:01)
[2020-01-07] MEDS ORDERED: ELIQUIS2.5 M1 PO (22:02)
[2020-01-07] MEDS ORDERED: Zantac150 MG PO (22:04)
[2020-01-07] MEDS ORDERED: DOC250 PO (22:04)
[2020-01-07] MEDS ORDERED: LOSA50 PO (22:07)
[2020-01-07] MEDS ORDERED: NITR100CA PO (22:08)
[2020-01-07] MEDS ORDERED: FAMO20 PO (22:15)
[2020-01-07] MEDS ORDERED: GENTEAL TEARS 015 ML BOTHEYES (22:16)
[2020-01-07] MEDS ORDERED: Bacid1 EACH PO (22:17)
--- NOTE | 2020-01-08 05:05 | NUR ---
SHIFT SUMMARY- PT. NEW ADMISSION FROM ED, ON ISOLATION FOR C-DIFF. A&OX3. PT. WEAK AND ON BEDREST. NO C/O N/V DURING THE NIGHT. PRN NA MED GIVEN IN THE ED HAS BEEN EFFECTIVE. PT. HAS HAD 1 SMALL LOOSE BM THIS SHIFT. DENIED ANY C/O PAIN OTHER THAN A SORE BOTTOM. PT. CALLS APPROPRIATELY AND ABLE TO MAKE HER NEEDS KNOWN. K RIDERS X2 GIVEN LAST NIGHT, PT TOLERATED WELL. PT. APPEARS TO BE SLEEPING COMFORTABLY IN BED. NO APPARENT DISTRESS NOTED. CALL LIGHT WITHIN REACH, BED IN LOW POSITION, AND SIDE RAILS UP X2. WILL CONT TO MONITOR.
[2020-01-08 05:09] LABS: Hematocrit 26.6 % (33.0-51.0); Hemoglobin 8.6 g/dL (11.5-16.0); Mean Corpuscular HGB 31.2 pg (26.0-34.0); Mean Corpuscular HGB Conc 32.3 g/dL (31.5-36.5); Mean Corpuscular Volume 96 fL (80-100); Mean Platelet Volume 9.1 fL (9.1-12.4); Platelet Count 443 K/mm3 (150-400); RDW Coefficient Variation 16.2 % (11.7-14.2); RDW Standard Deviation 55.9 fL (35.1-46.3); Red Blood Cell Count 2.76 M/mm3 (3.80-5.20); White Blood Cell Count 12.62 K/mm3 (4.00-11.30)
[2020-01-08 05:28] LABS: Creatinine, Blood 1.79 mg/dL (0.40-1.00); Potassium, Blood 3.5 mmol/L (3.5-5.5)
--- NOTE | 2020-01-08 17:52 | NUR ---
PATIENT A/OX3, FORGETFUL AT TIMES. TREATING FOR C-DIFF WITH ORAL VANCO. PATIENT DENIES ANY NAUSEA OR ABDOMINAL PAIN THIS SHIFT. TURNING Q2 HOURS. INCONTINENT OF URINE/STOOL. REDENESS AND SMALL ABRASION TO COCCYX. MEPILEX IN PLACE. APPETITE POOR TODAY, ABLE TO FEED HERSELF. TAKES PILLS WHOLE WITH WATER. CALLS APPROPRIATELY FOR ASSISTANCE.
--- NOTE | 2020-01-09 04:09 | NUR ---
SHIFT SUMMARY: 84 Y/O OBESE FEMALE RESTED COMFORTABLY IN BED ALL SHIFT; PT HAD TWO SMALL LOOSE YELLOW BOUTS DIARRHEA THIS SHIFT; REPOSITIONED EVERY 2 HOURS; ALERT AND ORIENTED X 2, ABLE TO FOLLOW ALL SIMPLE VERBAL COMMANDS; DENIES PAIN OR NAUSEA; BED ALARM APPLIED, BED LOW POSITION WITH CALL LIGHT AT SIDE.
[2020-01-09 09:39] LABS: BASOPHILS PERCENT AUTO 1 % (0-2); EOSINOPHILS ABSOLUTE AUTO 0.11 K/mm3 (0.00-0.68); EOSINOPHILS PERCENT AUTO 2 % (0-6); Hematocrit 28.7 % (33.0-51.0); Hemoglobin 9.3 g/dL (11.5-16.0); IMMATURE GRAN ABSOLUTE AUTO 0.17 K/mm3 (0.00-0.10); IMMATURE GRAN PERCENT AUTO 2 % (0-1); LYMPHOCYTES ABSOLUTE AUTO 1.19 K/mm3 (0.84-5.20); LYMPHOCYTES PERCENT AUTO 17 % (21-46); MONOCYTES PERCENT AUTO 8 % (4-13); Mean Corpuscular HGB 31.5 pg (26.0-34.0); Mean Corpuscular HGB Conc 32.4 g/dL (31.5-36.5); Mean Corpuscular Volume 97 fL (80-100); Mean Platelet Volume 9.4 fL (9.1-12.4); NEUTROPHILS PERCENT AUTO 70 % (41-73); Platelet Count 443 K/mm3 (150-400); RDW Coefficient Variation 16.6 % (11.7-14.2); RDW Standard Deviation 58.2 fL (35.1-46.3); Red Blood Cell Count 2.95 M/mm3 (3.80-5.20); White Blood Cell Count 7.17 K/mm3 (4.00-11.30)
[2020-01-09 10:28] LABS: Albumin, Blood 1.4 g/dL (3.4-5.0); Albumin/Globulin Ratio 0.4 (0.8-1.8); Bilirubin, Total 0.4 mg/dL (0.1-1.0); Bun/Creatinine Ratio 19.7 (12.0-20.0); Calcium, Blood 7.5 mg/dL (8.5-10.1); Creatinine, Blood 1.42 mg/dL (0.40-1.00); Globulin, Blood 3.4 g/dL (2.2-4.0); Total Protein, Blood 4.8 g/dL (6.4-8.2)
--- NOTE | 2020-01-09 15:30 | NUR ---
PATIENT GAVE STUDENT NURSE PERMISSION TO PROVIDE CARE ON January.
--- NOTE | 2020-01-09 18:39 | NUR ---
PATIENT A/OX4, UP WITH FWW AND 1 ASSIST TO CHAIR. INCONTINENT OF URINE/STOOL. 1 SMALL WATERY STOOL THIS SHIFT. VSS, ON RA. AC BLOOD SUGARS, COVERAGE NEEDED BEFORE DINNER. TOLERATING DIET. DENIES ANY NAUSEA. FLAGYL AND PO VANCO TO TREAT C-DIFF COLITIS. 20G IV TO L AC WNL, NS @ 75ML/HR INFUSING. DENIES ANY PAIN OR DISCOMFORT. CALLS APPRORIATELY FOR ASSISTANCE.
--- NOTE | 2020-01-09 21:57 | NUR ---
1930 PT RESTING COMFORTABLY IN BED WITH FAMILY AT SIDE;
--- NOTE | 2020-01-10 04:01 | NUR ---
SHIFT SUMMARY: 84 Y/O OBESE FEMALE RESTED COMFORTABLY ALL SHIFT; PT HAD ONE EPISODE DIARRHEA--YELLOW COLORED X 1 BEGINNING OF SHIFT; ALERT AND ORIENTED X 4; CONTACT PRECAUTIONS MAINTAINED; DENIES PAIN OR NAUSEA; BED LOW POSITION WITH CALL LIGHT AT SIDE.
[2020-01-10 07:54] LABS: BASOPHILS ABSOLUTE AUTO 0.12 K/mm3 (0.00-0.23); BASOPHILS PERCENT AUTO 2 % (0-2); EOSINOPHILS ABSOLUTE AUTO 0.11 K/mm3 (0.00-0.68); EOSINOPHILS PERCENT AUTO 2 % (0-6); Hematocrit 26.5 % (33.0-51.0); Hemoglobin 8.5 g/dL (11.5-16.0); IMMATURE GRAN ABSOLUTE AUTO 0.24 K/mm3 (0.00-0.10); IMMATURE GRAN PERCENT AUTO 5 % (0-1); LYMPHOCYTES ABSOLUTE AUTO 1.31 K/mm3 (0.84-5.20); LYMPHOCYTES PERCENT AUTO 25 % (21-46); MONOCYTES ABSOLUTE AUTO 0.51 K/mm3 (0.16-1.47); MONOCYTES PERCENT AUTO 10 % (4-13); Mean Corpuscular HGB 31.3 pg (26.0-34.0); Mean Corpuscular HGB Conc 32.1 g/dL (31.5-36.5); Mean Corpuscular Volume 97 fL (80-100); Mean Platelet Volume 9.1 fL (9.1-12.4); NEUTROPHILS ABSOLUTE AUTO 2.89 K/mm3 (1.96-9.15); NEUTROPHILS PERCENT AUTO 56 % (41-73); Platelet Count 336 K/mm3 (150-400); RDW Coefficient Variation 16.5 % (11.7-14.2); RDW Standard Deviation 58.5 fL (35.1-46.3); Red Blood Cell Count 2.72 M/mm3 (3.80-5.20); White Blood Cell Count 5.18 K/mm3 (4.00-11.30)
[2020-01-10 08:22] LABS: Albumin, Blood 1.3 g/dL (3.4-5.0); Albumin/Globulin Ratio 0.4 (0.8-1.8); Bilirubin, Total 0.3 mg/dL (0.1-1.0); Calcium, Blood 7.4 mg/dL (8.5-10.1); Creatinine, Blood 1.22 mg/dL (0.40-1.00); Globulin, Blood 3.1 g/dL (2.2-4.0); Potassium, Blood 3.8 mmol/L (3.5-5.5); Total Protein, Blood 4.4 g/dL (6.4-8.2)
--- NOTE | 2020-01-10 18:46 | NUR ---
PATIENT CONTINUES TO IMPROVE. ADVANCED TO ADA LACTOSE FREE DIET TODAY AND TOLERATED WELL. VSS, ON RA. UP TO CHAIR TODAY FOR LUNCH. MEPILEX TO COCCYX CHANGED TODAY. NEEDS ASSISTANCE WITH REPOSITIONING IN BED. CONTINUES ON VANCO AND FLAGYL. DENIES ANY PAIN OR NAUESA. CALLS APPROPRIATELY FOR ASSISTANCE.
--- NOTE | 2020-01-10 19:37 | NUR ---
REPORT RECEIVED FROM PADMAJA ARMENTA; RESTING COMFORTABLY IN BED.
[2020-01-11 04:49] LABS: Hematocrit 27.5 % (33.0-51.0); Hemoglobin 8.9 g/dL (11.5-16.0); Mean Corpuscular HGB 31.9 pg (26.0-34.0); Mean Corpuscular HGB Conc 32.4 g/dL (31.5-36.5); Mean Corpuscular Volume 99 fL (80-100); Mean Platelet Volume 9.2 fL (9.1-12.4); Platelet Count 331 K/mm3 (150-400); RDW Coefficient Variation 16.9 % (11.7-14.2); RDW Standard Deviation 60.7 fL (35.1-46.3); Red Blood Cell Count 2.79 M/mm3 (3.80-5.20); White Blood Cell Count 4.14 K/mm3 (4.00-11.30)
[2020-01-11 05:10] LABS: Albumin, Blood 1.4 g/dL (3.4-5.0); Albumin/Globulin Ratio 0.4 (0.8-1.8); Bilirubin, Total 0.2 mg/dL (0.1-1.0); Bun/Creatinine Ratio 13.7 (12.0-20.0); Calcium, Blood 7.6 mg/dL (8.5-10.1); Creatinine, Blood 1.39 mg/dL (0.40-1.00); Globulin, Blood 3.3 g/dL (2.2-4.0); Phosphorus, Blood 1.1 mg/dL (2.5-4.9); Potassium, Blood 4.6 mmol/L (3.5-5.5); Total Protein, Blood 4.7 g/dL (6.4-8.2)
--- NOTE | 2020-01-11 05:21 | NUR ---
SHIFT SUMMARY: 84 Y/O OBESE FEMALE RESTED COMFORTABLY ALL SHIFT; PT HAD ONE SLIGHTLY FORMED STOOL (NO DIARRHEA THIS SHIFT); PT ABLE TO STAND, PIVOT AND TRANSFER ONTO BSC X 1 STANDBY ASSIST; TOLERATED ACTIVITY WELL; ALERT AND ORIENTED X 3; DENIES PAIN OR NAUSEA; HAPPY AND COOPERATIVE; BED ALARMA APPLIED, BED LOW POSITION WITH CALL LIGHT AT SIDE; CONTACT ISOLATION MAINTAINED.
[2020-01-11 06:03] LABS: BASOPHILS ABSOLUTE MAN 0.04 K/mm3 (0.00-0.23); BASOPHILS PERCENT MAN 1 % (0-2); EOSINOPHILS ABSOLUTE MAN 0.04 K/mm3 (0.00-0.68); EOSINOPHILS PERCENT MAN 1 % (0-6); LYMPHOCYTES ABSOLUTE MAN 1.24 K/mm3 (0.84-5.20); LYMPHOCYTES PERCENT MAN 30 % (21-46); METAMYELOCYTE PERCENT MAN 5 % (0-0); MONOCYTES ABSOLUTE MAN 0.24 K/mm3 (0.16-1.47); MONOCYTES PERCENT MAN 6 % (4-13); MYELOCYTE ABSOLUTE MAN 0.04 K/mm3 (0.00-0.00); MYELOCYTE PERCENT MAN 1 % (0-0); NEUTROPHILS ABSOLUTE MAN 2.31 K/mm3 (1.96-9.15); SEG NEUTROPHILS PERCENT MAN 56 % (41-73); TOTAL CELLS COUNTED 100
--- NOTE | 2020-01-11 17:39 | NUR ---
PT AOX3 WITH CONFUSION. PT HAS BEEN DOING WELL AND HAS HAD FORMED STOOLS. PT DENIES ANY NAUSEA OR PAIN AT THIS TIME. MEPIPLEX CHANGED ON GLUTEAL CREASE. PT DOING WELL A ONE PERSON ASSIST WITH WALKER TO CHAIR. NO DISTRESS NOTED AND CALLS APPROPRIATELY. WILL CONTINUE TO MONITOR.
--- NOTE | 2020-01-12 05:47 | NUR ---
DIRECTOR TELEMETRY SUMMARY NO ACUTE CHANGES THIS SHIFT. PT AAOX3 AND PLEASANT. 1 ASSIST FROM BED TO CHAIR/COMMODE. CONTINUES PO VANCOMYCIN FOR C. DIFF. DENIES PAIN, SOB, N/V. VSS, WILL CONTINUE TO MONITOR.
--- NOTE | 2020-01-12 17:04 | NUR ---
PT AO AND COOPERATIVE OF CARE. PT CALLS APPROPRIATELY AND IS A ONE PERSON TO BEDSIDE COMMODE OR CHAIR. PT WAS ABLE TO BE UP FOR BREAKFAST, BUT DECIDED SHE WANTED BACK TO BED. PT REPORTED SHOULDER AND BACK PAIN AND WAS TREATED PER EMAR. NO DISTRESS NOTED AT THIS TIME WILL CONTINUE TO MONITOR.
[2020-01-13 05:04] LABS: Hematocrit 28.2 % (33.0-51.0); Mean Corpuscular HGB 31.5 pg (26.0-34.0); Mean Corpuscular HGB Conc 31.9 g/dL (31.5-36.5); Mean Corpuscular Volume 99 fL (80-100); Mean Platelet Volume 9.4 fL (9.1-12.4); Platelet Count 281 K/mm3 (150-400); RDW Coefficient Variation 17.2 % (11.7-14.2); RDW Standard Deviation 62.4 fL (35.1-46.3); Red Blood Cell Count 2.86 M/mm3 (3.80-5.20); White Blood Cell Count 3.76 K/mm3 (4.00-11.30)
--- NOTE | 2020-01-13 05:09 | NUR ---
FIELD SERVICE POULTRY TECHNICIAN SUMMARY NO ACUTE CHANGES THIS SHIFT. PT AAOX4 AND PLEASANT. 1 ASSIST TO THE BSC. NO BM'S THIS SHIFT BUT PT STATES BM'S EARLIER IN THE DAY ARE STILL FORMED. DENIES PAIN, SOB, N/V. HAS RESTED OFF/ON THROUGH THE NIGHT. PT PROBABLY DC BACK TO [facility] LATER TODAY TO FINISH REHAB. VSS, WILL CONTINUE TO MONITOR.
[2020-01-13 05:31] LABS: BASOPHILS ABSOLUTE MAN 0.15 K/mm3 (0.00-0.23); BASOPHILS PERCENT MAN 4 % (0-2); EOSINOPHILS ABSOLUTE MAN 0.03 K/mm3 (0.00-0.68); EOSINOPHILS PERCENT MAN 1 % (0-6); LYMPHOCYTES ABSOLUTE MAN 1.09 K/mm3 (0.84-5.20); LYMPHOCYTES PERCENT MAN 29 % (21-46); METAMYELOCYTE ABSOLUTE MAN 0.18 K/mm3 (0.00-0.00); METAMYELOCYTE PERCENT MAN 5 % (0-0); MONOCYTES ABSOLUTE MAN 0.22 K/mm3 (0.16-1.47); MONOCYTES PERCENT MAN 6 % (4-13); MYELOCYTE ABSOLUTE MAN 0.07 K/mm3 (0.00-0.00); MYELOCYTE PERCENT MAN 2 % (0-0); NEUTROPHILS ABSOLUTE MAN 1.99 K/mm3 (1.96-9.15); SEG NEUTROPHILS PERCENT MAN 53 % (41-73); TOTAL CELLS COUNTED 100
[2020-01-13 05:32] LABS: Magnesium, Blood 1.4 mg/dL (1.6-2.4)
[2020-01-13 05:33] LABS: Albumin, Blood 1.5 g/dL (3.4-5.0); Anion Gap 6 mmol/L (6-16); Blood Urea Nitrogen 14 mg/dL (8-24); Bun/Creatinine Ratio 10.8 (12.0-20.0); CO2, Blood 21 mmol/L (21-32); Calcium, Blood 7.9 mg/dL (8.5-10.1); Chloride, Blood 114 mmol/L (98-108); Glomerular Filtration Rate 42 (60-); Glucose, Blood 133 mg/dL (70-99); Phosphorus, Blood 1.9 mg/dL (2.5-4.9); Potassium, Blood 4.4 mmol/L (3.5-5.5); Sodium, Blood 141 mmol/L (136-145)
[2020-01-13] MEDS ORDERED: OPTLUBOPOB BOTHEYES (15:08)
[2020-01-13] MEDS ORDERED: INSULIN LI100 UNIT/2 SC (15:10)
[2020-01-13] MEDS ORDERED: VANCOCIN HCL125 MG PO (15:13)
== END 2020-01-13 15:40 | DRG 385 ==
LOC: ER 15:34 → MEDS 18:59 → ERHOLD 18:59 → MEDS 21:44
PROVIDERS: Family Medicine; Internal Medicine Gastroenterology; Nurse Practitioner Acute Care; Physician Assistant; ADMIT Hospitalist
DX: K51.00 Ulcerative (chronic) pancolitis without complications (principal); E43 Unspecified severe protein-calorie malnutrition; N17.9 Acute kidney failure, unspecified; I48.21 Permanent atrial fibrillation; N18.4 Chronic kidney disease, stage 4 (severe); A04.72 Enterocolitis due to Clostridium difficile, not specified as recurrent; E03.9 Hypothyroidism, unspecified; E78.5 Hyperlipidemia, unspecified; K21.9 Gastro-esophageal reflux disease without esophagitis; E11.22 Type 2 diabetes mellitus with diabetic chronic kidney disease; I12.9 Hypertensive chronic kidney disease with stage 1 through stage 4 chronic kidney disease, or unspecified chronic kidney disease; E78.00 Pure hypercholesterolemia, unspecified; E87.6 Hypokalemia; E83.51 Hypocalcemia; E66.9 Obesity, unspecified; Z95.1 Presence of aortocoronary bypass graft; Z95.0 Presence of cardiac pacemaker; Z88.0 Allergy status to penicillin; Z88.2 Allergy status to sulfonamides; Z88.8 Allergy status to other drugs, medicaments and biological substances; Z79.4 Long term (current) use of insulin; Z79.899 Other long term (current) drug therapy; Z68.30 Body mass index [BMI] 30.0-30.9, adult
CPT/HCPCS: 36415; 80048; 80053; 80069; 81001; 82330; 82947; 83605; 83735; 84100; 84134; 85025; 85027; 87077; 87086; 87186; 93306; 96361; 96365; 96375; 97110; 97116; 97162; 97166; 97530; 97535; 99284-25; A9270; A9270-GY; C9113; J0610; J0692; J0780; J2550; J3370; J3480; J7030; J7050; P9612

== ENCOUNTER 2020-01-27 10:57 | Emergency (ER) | payer OTHER ==
[~2020-01-27] VITALS: Ht 167.6 cm; Wt 86.2 kg
[~2020-01-27 10:57] MED LIST changes: +Anti-Diarrheal2 MG PO; +Athenol325 MG PO; +Bacid1 EACH PO; +Eq Liquid Anta769 ML PO; +FISH OIL 500 M1 EAC1 PO; +GENTEAL TEARS 015 ML BOTHEYES; +INSULIN LI100 UNIT/2 SC; +OMEP20ER PO; +ONDA4ODT SL; +OPTLUBOPOB BOTHEYES; +PREDNISOLONE ACE5 ML RIGHTEYE; +TUMS500 MG PO; +VANCOCIN HCL125 MG PO; +VITAMIN D325 MCG PO
[2020-01-27 11:32] LABS: BASOPHILS ABSOLUTE AUTO 0.12 K/mm3 (0.00-0.23); BASOPHILS PERCENT AUTO 2 % (0-2); EOSINOPHILS ABSOLUTE AUTO 0.22 K/mm3 (0.00-0.68); EOSINOPHILS PERCENT AUTO 4 % (0-6); Hematocrit 29.3 % (33.0-51.0); Hemoglobin 9.3 g/dL (11.5-16.0); IMMATURE GRAN ABSOLUTE AUTO 0.05 K/mm3 (0.00-0.10); IMMATURE GRAN PERCENT AUTO 1 % (0-1); LYMPHOCYTES ABSOLUTE AUTO 1.15 K/mm3 (0.84-5.20); LYMPHOCYTES PERCENT AUTO 20 % (21-46); MONOCYTES ABSOLUTE AUTO 0.72 K/mm3 (0.16-1.47); MONOCYTES PERCENT AUTO 12 % (4-13); Mean Corpuscular HGB 32.6 pg (26.0-34.0); Mean Corpuscular HGB Conc 31.7 g/dL (31.5-36.5); Mean Corpuscular Volume 103 fL (80-100); NEUTROPHILS ABSOLUTE AUTO 3.58 K/mm3 (1.96-9.15); NEUTROPHILS PERCENT AUTO 61 % (41-73); RDW Coefficient Variation 18.1 % (11.7-14.2); RDW Standard Deviation 68.9 fL (35.1-46.3); Red Blood Cell Count 2.85 M/mm3 (3.80-5.20); White Blood Cell Count 5.84 K/mm3 (4.00-11.30)
[2020-01-27 11:47] LABS: Mean Platelet Volume 10.9 fL (9.1-12.4); Platelet Count 221 K/mm3 (150-400)
[2020-01-27 12:06] LABS: Albumin, Blood 2.3 g/dL (3.4-5.0); Albumin/Globulin Ratio 0.6 (0.8-1.8); Bilirubin, Total 0.2 mg/dL (0.1-1.0); Bun/Creatinine Ratio 10.7 (12.0-20.0); Calcium, Blood 7.7 mg/dL (8.5-10.1); Creatinine, Blood 1.22 mg/dL (0.40-1.00); Globulin, Blood 3.9 g/dL (2.2-4.0); Potassium, Blood 3.6 mmol/L (3.5-5.5); Total Protein, Blood 6.2 g/dL (6.4-8.2)
[2020-01-27] MEDS ORDERED: Zithromax250 MG PO (12:53)
[2020-01-27] MEDS ORDERED: CEFP200 PO (12:53)
[2020-01-27 12:54] LABS: Influenza A Negative (NEGATIVE); Influenza B Negative (NEGATIVE)
[2020-01-27] MEDS ORDERED: ONDA4ODT MM (13:54)
== END 2020-01-27 13:57 | disposition home or self-care (01) ==
LOC: ER 10:57
PROVIDERS: Emergency Medicine
DX: J18.9 Pneumonia, unspecified organism (principal); E11.22 Type 2 diabetes mellitus with diabetic chronic kidney disease; N18.9 Chronic kidney disease, unspecified; I12.9 Hypertensive chronic kidney disease with stage 1 through stage 4 chronic kidney disease, or unspecified chronic kidney disease; E78.5 Hyperlipidemia, unspecified; D64.9 Anemia, unspecified; E03.9 Hypothyroidism, unspecified; M85.80 Other specified disorders of bone density and structure, unspecified site; Z79.4 Long term (current) use of insulin; Z79.899 Other long term (current) drug therapy; Z88.0 Allergy status to penicillin; Z88.2 Allergy status to sulfonamides; Z91.048 Other nonmedicinal substance allergy status; Z88.8 Allergy status to other drugs, medicaments and biological substances
CPT/HCPCS: 36415; 71045; 80053; 83880; 85025; 87804; 93005; 93010; 99284-25

== ENCOUNTER 2020-04-17 06:51 | Emergency (ER) | payer OTHER ==
[~2020-04-17] VITALS: Ht 167.6 cm; Wt 85.7 kg
[~2020-04-17 06:51] MED LIST changes: +CEFP200 PO; +ONDA4ODT MM; +Zithromax250 MG PO
[2020-04-17] MEDS ORDERED: CIPR500 PO (07:16)
[2020-04-17] MEDS ORDERED: FURO40 PO (07:17)
[2020-04-17] MEDS ORDERED: POTA8 PO (07:19)
[2020-04-17 07:51] LABS: BASOPHILS ABSOLUTE AUTO 0.04 K/mm3 (0.00-0.23); BASOPHILS PERCENT AUTO 1 % (0-2); EOSINOPHILS ABSOLUTE AUTO 0.14 K/mm3 (0.00-0.68); EOSINOPHILS PERCENT AUTO 2 % (0-6); Hematocrit 33.4 % (33.0-51.0); Hemoglobin 10.9 g/dL (11.5-16.0); IMMATURE GRAN ABSOLUTE AUTO 0.02 K/mm3 (0.00-0.10); IMMATURE GRAN PERCENT AUTO 0 % (0-1); LYMPHOCYTES ABSOLUTE AUTO 0.32 K/mm3 (0.84-5.20); LYMPHOCYTES PERCENT AUTO 5 % (21-46); MONOCYTES ABSOLUTE AUTO 0.32 K/mm3 (0.16-1.47); MONOCYTES PERCENT AUTO 5 % (4-13); Mean Corpuscular HGB 31.8 pg (26.0-34.0); Mean Corpuscular HGB Conc 32.6 g/dL (31.5-36.5); Mean Corpuscular Volume 97 fL (80-100); Mean Platelet Volume 10.8 fL (9.1-12.4); NEUTROPHILS ABSOLUTE AUTO 5.44 K/mm3 (1.96-9.15); NEUTROPHILS PERCENT AUTO 87 % (41-73); Platelet Count 247 K/mm3 (150-400); RDW Coefficient Variation 12.6 % (11.7-14.2); RDW Standard Deviation 45.2 fL (35.1-46.3); Red Blood Cell Count 3.43 M/mm3 (3.80-5.20); White Blood Cell Count 6.28 K/mm3 (4.00-11.30)
[2020-04-17 08:11] LABS: Troponin I <0.015 ng/mL (0.000-0.040)
[2020-04-17 08:12] LABS: Alanine Aminotransfer (ALT/SGP 16 U/L (12-78); Albumin, Blood 2.9 g/dL (3.4-5.0); Albumin/Globulin Ratio 0.7 (0.8-1.8); Alk Phos 99 U/L (50-136); Anion Gap 5 mmol/L (6-16); Aspartate Aminotrans (AST/SGOT 17 U/L (12-37); Bilirubin, Total 0.4 mg/dL (0.1-1.0); Blood Urea Nitrogen 37 mg/dL (8-24); CO2, Blood 25 mmol/L (21-32); Calcium, Blood 8.8 mg/dL (8.5-10.1); Chloride, Blood 106 mmol/L (98-108); Creatinine, Blood 1.85 mg/dL (0.40-1.00); Globulin, Blood 3.9 g/dL (2.2-4.0); Glomerular Filtration Rate 28 (60-); Glucose, Blood 271 mg/dL (70-99); Potassium, Blood 4.2 mmol/L (3.5-5.5); Sodium, Blood 136 mmol/L (136-145); Total Protein, Blood 6.8 g/dL (6.4-8.2)
== END 2020-04-17 11:50 | disposition home or self-care (01) ==
LOC: ER 06:51
PROVIDERS: Emergency Medicine
DX: R55 Syncope and collapse (principal); S80.01XA Contusion of right knee, initial encounter; E11.22 Type 2 diabetes mellitus with diabetic chronic kidney disease; I12.9 Hypertensive chronic kidney disease with stage 1 through stage 4 chronic kidney disease, or unspecified chronic kidney disease; N18.9 Chronic kidney disease, unspecified; D63.1 Anemia in chronic kidney disease; E03.9 Hypothyroidism, unspecified; I48.91 Unspecified atrial fibrillation; Z88.0 Allergy status to penicillin; Z88.2 Allergy status to sulfonamides; Z91.048 Other nonmedicinal substance allergy status; Z79.899 Other long term (current) drug therapy; Z79.2 Long term (current) use of antibiotics; Z79.4 Long term (current) use of insulin; W19.XXXA Unspecified fall, initial encounter
CPT/HCPCS: 71046; 73562-RT; 80053; 83880; 84484; 85025; 93005; 93010; 99284-25

== ENCOUNTER → 2020-12-14 | Outpatient (CLI) | payer OTHER ==
[~2020-12-14] MED LIST changes: +AKWA Tears15 ML BOTHEYES; +ALUM-MAG HYDROX30 ML PO; +ARTIFICIAL TEAR15 M2 BOTHEYES; +ASPIR 8181 M1 PO; +BASAGLAR K100 UNIT/1 SC; +BENZ100A PO; +CIPR500 PO; +CLON.1 PO; +Catapres0.2 MG PO; +Cefpodoxime Pr100 MG PO; +Clotrimazole-Be15 GM TP; +ERYT.5TO PO; +ERYT.5TO RIGHTEYE; +FLUTICASONE P15.8 M1; +FUROSEMIDE40 MG PO; +Flonase 0.05% N16 GM; +GUAI600T33 PO; +HUMALOG KW100 UNIT/1 SC; +IMODIUM A-D2 M1 PO; +K-Dur20 MEQ PO; +LACT PO; +MYLANTA PO; +NOVOLOG FL100 UNIT/3 SC; -OPTLUBOPOB BOTHEYES; +POTA10T PO; +POTA8 PO; +PREDNISOLONE ACE5 ML BOTHEYES; +Potassium Chlo20 ME1 PO; +REFRESH TEARS BOTHEYES; +TRIDERM28.4 GM TOP; +VISBIOME PROBIOTIC PO; +Vancocin HCl125 MG PO; +Vancocin HCl250 MG PO; +Vitamin D2000 UNIT PO
[2020-12-14 13:45] LABS: C DIFFICILE DNA Positive (Negative)
== END ==
LOC: PLD 09:50 → LAB SHORT 09:50
PROVIDERS: Internal Medicine Gastroenterology
DX: R19.7 Diarrhea, unspecified (principal)
CPT/HCPCS: 87324; 87493

== ENCOUNTER → 2021-01-18 | Outpatient (CLI) | payer OTHER | LOC: LAB 15:37 → LAB SHORT 15:37 | DX: D48.5 Neoplasm of uncertain behavior of skin (principal); Z88.0 Allergy status to penicillin; Z88.2 Allergy status to sulfonamides; Z88.8 Allergy status to other drugs, medicaments and biological substances; Z91.048 Other nonmedicinal substance allergy status | CPT/HCPCS: 88305 ==

== ENCOUNTER → 2021-02-19 | Outpatient (CLI) | payer OTHER ==
[~2021-02-19] MED LIST changes: -ASPIR 8181 M1 PO; -Catapres0.2 MG PO; -Cefpodoxime Pr100 MG PO; -Clotrimazole-Be15 GM TP; -ERYT.5TO RIGHTEYE; -FUROSEMIDE40 MG PO; -Flonase 0.05% N16 GM; -Potassium Chlo20 ME1 PO
[2021-02-19 16:30] LABS: Creatinine, Urine Random 45.3 mg/dL (27.00-270.00); Protein, Urine Random 33.8 mg/dL (0.0-11.9)
== END | disposition home or self-care (01) ==
LOC: LAB 14:00 → LAB SHORT 14:00
PROVIDERS: Internal Medicine
DX: N18.32 Chronic kidney disease, stage 3b (principal)
CPT/HCPCS: 82570; 84156

== ENCOUNTER → 2021-03-29 | Outpatient (CLI) | payer OTHER ==
[~2021-03-29] MED LIST changes: +ASPIR 8181 M1 PO; +Catapres0.2 MG PO; +Cefpodoxime Pr100 MG PO; +Clotrimazole-Be15 GM TP; +ERYT.5TO RIGHTEYE; +FUROSEMIDE40 MG PO; +Flonase 0.05% N16 GM; +Potassium Chlo20 ME1 PO
[2021-03-29 16:57] LABS: Appearance, Urine Cloudy (Clear); Bilirubin, Urine Neg (Neg); Blood, Urine 2+ (Neg); Color, Urine Yellow (P-Yellow); Glucose Qualitative, Urine Neg (Neg); Ketones, Urine Neg (Neg); Leukocyte Esterase, Urine 3+ (Neg); Nitrite, Urine Neg (Neg); Protein, Urine 2+ (Neg); Urobilinogen, Urine NORM (Normal)
[2021-03-29 17:13] LABS: Bacteria Many /hpf; Red Blood Cells, Urine 0-2 /hpf (0-2); Squamous Epithelial Cells Few /hpf (Few); White Blood Cells, Urine 25-50 /hpf (0-5)
== END | disposition home or self-care (01) ==
LOC: LAB SHORT 15:00 → LAB 15:00
PROVIDERS: Family Medicine
DX: N39.0 Urinary tract infection, site not specified (principal)
CPT/HCPCS: 81001

== ENCOUNTER 2021-05-12 08:23 | Emergency (ER) | payer OTHER ==
[~2021-05-12] VITALS: Ht 167.6 cm; Wt 83.9 kg
[~2021-05-12 08:23] MED LIST changes: -ASPIR 8181 M1 PO; -Catapres0.2 MG PO; -Cefpodoxime Pr100 MG PO; -Clotrimazole-Be15 GM TP; -ERYT.5TO RIGHTEYE; -FUROSEMIDE40 MG PO; -Flonase 0.05% N16 GM; -Potassium Chlo20 ME1 PO
[2021-05-12 08:49] LABS: BASOPHILS ABSOLUTE AUTO 0.11 K/mm3 (0.00-0.23); BASOPHILS PERCENT AUTO 2 % (0-2); EOSINOPHILS ABSOLUTE AUTO 0.41 K/mm3 (0.00-0.68); EOSINOPHILS PERCENT AUTO 8 % (0-6); Hematocrit 33.4 % (33.0-51.0); Hemoglobin 11.1 g/dL (11.5-16.0); IMMATURE GRAN ABSOLUTE AUTO 0.02 K/mm3 (0.00-0.10); IMMATURE GRAN PERCENT AUTO 0 % (0-1); LYMPHOCYTES PERCENT AUTO 31 % (21-46); MONOCYTES ABSOLUTE AUTO 0.55 K/mm3 (0.16-1.47); MONOCYTES PERCENT AUTO 11 % (4-13); Mean Corpuscular HGB 32.2 pg (26.0-34.0); Mean Corpuscular HGB Conc 33.2 g/dL (31.5-36.5); Mean Corpuscular Volume 97 fL (80-100); Mean Platelet Volume 10.3 fL (9.1-12.4); NEUTROPHILS PERCENT AUTO 48 % (41-73); Platelet Count 217 K/mm3 (150-400); RDW Coefficient Variation 13.1 % (11.7-14.2); RDW Standard Deviation 46.9 fL (35.1-46.3); Red Blood Cell Count 3.45 M/mm3 (3.80-5.20); White Blood Cell Count 5.19 K/mm3 (4.00-11.30)
[2021-05-12 09:12] LABS: Albumin, Blood 3.1 g/dL (3.4-5.0); Albumin/Globulin Ratio 0.8 (0.8-1.8); Bilirubin, Total 0.3 mg/dL (0.1-1.0); Calcium, Blood 8.8 mg/dL (8.5-10.1); Creatinine, Blood 1.54 mg/dL (0.40-1.00); Globulin, Blood 3.8 g/dL (2.2-4.0); Potassium, Blood 3.3 mmol/L (3.5-5.5); Total Protein, Blood 6.9 g/dL (6.4-8.2)
[2021-05-12] MEDS ORDERED: FUROSEMIDE40 MG PO (09:14)
[2021-05-12] MEDS ORDERED: Potassium Chlo20 ME1 PO (09:16)
[2021-05-12] MEDS ORDERED: ERYT.5TO RIGHTEYE (09:17)
[2021-05-12] MEDS ORDERED: Clotrimazole-Be15 GM TP (09:17)
[2021-05-12 11:07] LABS: Source, Urine Clean Catch
[2021-05-12 11:43] LABS: Appearance, Urine Hazy (Clear); Bilirubin, Urine Neg (Neg); Blood, Urine 2+ (Neg); Color, Urine Yellow (P-Yellow); Glucose Qualitative, Urine Neg (Neg); Ketones, Urine Neg (Neg); Leukocyte Esterase, Urine 3+ (Neg); Nitrite, Urine Neg (Neg); Protein, Urine 2+ (Neg); Urobilinogen, Urine NORM (Normal)
[2021-05-12 12:00] LABS: White Blood Cells, Urine TNTC /hpf (0-5)
[2021-05-12 12:01] LABS: Bacteria Many /hpf; Squamous Epithelial Cells Few /hpf (Few)
[2021-05-12] MEDS ORDERED: CEPH500 PO (12:05)
== END 2021-05-12 12:35 | disposition home or self-care (01) ==
LOC: ER 08:23
PROVIDERS: Physician Assistant
DX: N39.0 Urinary tract infection, site not specified (principal); R20.0 Anesthesia of skin; M79.604 Pain in right leg; E11.22 Type 2 diabetes mellitus with diabetic chronic kidney disease; N18.30 Chronic kidney disease, stage 3 unspecified; I48.91 Unspecified atrial fibrillation; K21.9 Gastro-esophageal reflux disease without esophagitis; Z79.4 Long term (current) use of insulin; Z79.899 Other long term (current) drug therapy; Z88.0 Allergy status to penicillin; Z88.2 Allergy status to sulfonamides; Z91.09 Other allergy status, other than to drugs and biological substances
CPT/HCPCS: 36415; 70450; 80053; 81001; 85025; 87077; 87086; 87186; 93005; 93010; 93971; 99285-25

== ENCOUNTER 2021-05-27 08:52 | Emergency (ER) | payer OTHER ==
[~2021-05-27] VITALS: Ht 167.6 cm; Wt 78.9 kg
[~2021-05-27 08:52] MED LIST changes: +Clotrimazole-Be15 GM TP; +ERYT.5TO RIGHTEYE; +FUROSEMIDE40 MG PO; +Potassium Chlo20 ME1 PO
[2021-05-27] MEDS ORDERED: ASPIR 8181 M1 PO ×2 (09:10→09:11)
[2021-05-27] MEDS ORDERED: Catapres0.2 MG PO (09:11)
[2021-05-27] MEDS ORDERED: Flonase 0.05% N16 GM (09:11)
[2021-05-27 09:21] LABS: Source, Urine Catheter
[2021-05-27 09:27] LABS: BASOPHILS ABSOLUTE AUTO 0.07 K/mm3 (0.00-0.23); BASOPHILS PERCENT AUTO 2 % (0-2); EOSINOPHILS ABSOLUTE AUTO 0.29 K/mm3 (0.00-0.68); EOSINOPHILS PERCENT AUTO 7 % (0-6); Hematocrit 35.1 % (33.0-51.0); Hemoglobin 11.4 g/dL (11.5-16.0); IMMATURE GRAN ABSOLUTE AUTO 0.01 K/mm3 (0.00-0.10); IMMATURE GRAN PERCENT AUTO 0 % (0-1); LYMPHOCYTES ABSOLUTE AUTO 1.43 K/mm3 (0.84-5.20); LYMPHOCYTES PERCENT AUTO 32 % (21-46); MONOCYTES PERCENT AUTO 9 % (4-13); Mean Corpuscular HGB 31.8 pg (26.0-34.0); Mean Corpuscular HGB Conc 32.5 g/dL (31.5-36.5); Mean Corpuscular Volume 98 fL (80-100); Mean Platelet Volume 10.9 fL (9.1-12.4); NEUTROPHILS ABSOLUTE AUTO 2.27 K/mm3 (1.96-9.15); NEUTROPHILS PERCENT AUTO 51 % (41-73); Platelet Count 199 K/mm3 (150-400); RDW Coefficient Variation 13.2 % (11.7-14.2); RDW Standard Deviation 47.7 fL (35.1-46.3); Red Blood Cell Count 3.58 M/mm3 (3.80-5.20); White Blood Cell Count 4.47 K/mm3 (4.00-11.30)
[2021-05-27 09:45] LABS: Albumin, Blood 3.2 g/dL (3.4-5.0); Albumin/Globulin Ratio 0.8 (0.8-1.8); Bilirubin, Total 0.2 mg/dL (0.1-1.0); Bun/Creatinine Ratio 31.5 (12.0-20.0); Calcium, Blood 9.2 mg/dL (8.5-10.1); Creatinine, Blood 1.65 mg/dL (0.40-1.00); Globulin, Blood 4.1 g/dL (2.2-4.0); Potassium, Blood 4.5 mmol/L (3.5-5.5); Total Protein, Blood 7.3 g/dL (6.4-8.2)
[2021-05-27 09:58] LABS: Bilirubin, Urine Neg (Neg); Blood, Urine 1+ (Neg); Glucose Qualitative, Urine Neg (Neg); Ketones, Urine Neg (Neg); Leukocyte Esterase, Urine 3+ (Neg); Nitrite, Urine Pos (Neg); Protein, Urine 2+ (Neg); Specific Gravity, Urine 1.015 (1.003-1.022); Urobilinogen, Urine NORM (Normal)
[2021-05-27 10:09] LABS: Appearance, Urine Hazy (Clear); Color, Urine Yellow (P-Yellow)
[2021-05-27 10:25] LABS: Red Blood Cells, Urine 0-2 /hpf (0-2); Squamous Epithelial Cells Few /hpf (Few); White Blood Cells, Urine TNTC /hpf (0-5)
[2021-05-27 10:26] LABS: Bacteria Many /hpf
[2021-05-27] MEDS ORDERED: Cefpodoxime Pr100 MG PO (11:11)
== END 2021-05-27 12:45 | disposition home or self-care (01) ==
LOC: ER 08:52
PROVIDERS: Physician Assistant
DX: N39.0 Urinary tract infection, site not specified (principal); E11.9 Type 2 diabetes mellitus without complications; K21.9 Gastro-esophageal reflux disease without esophagitis; Z88.0 Allergy status to penicillin; Z88.2 Allergy status to sulfonamides; Z91.09 Other allergy status, other than to drugs and biological substances; Z88.8 Allergy status to other drugs, medicaments and biological substances; Z79.899 Other long term (current) drug therapy; Z79.01 Long term (current) use of anticoagulants
CPT/HCPCS: 80053; 81001; 85025; 87077; 87086; 87186; 96365; 99283-25; A9270; J0696; J7030; P9612

== ENCOUNTER → 2021-11-01 | Outpatient (CLI) | payer OTHER ==
[~2021-11-01] MED LIST changes: +ASPIR 8181 M1 PO; +Catapres0.2 MG PO; +Cefpodoxime Pr100 MG PO; +Flonase 0.05% N16 GM
[2021-11-02 12:02] LABS: Appearance, Urine Hazy (Clear); Bilirubin, Urine Neg (Neg); Blood, Urine 1+ (Neg); Color, Urine Yellow (P-Yellow); Glucose Qualitative, Urine 2+ (Neg); Ketones, Urine Neg (Neg); Leukocyte Esterase, Urine 3+ (Neg); Nitrite, Urine Neg (Neg); Protein, Urine 1+ (Neg); Specific Gravity, Urine 1.015 (1.003-1.022); Urobilinogen, Urine NORM (Normal); pH, Urine 6.5 (5.0-8.0)
[2021-11-02 12:13] LABS: Squamous Epithelial Cells Few /hpf (Few); White Blood Cells, Urine 25-50 /hpf (0-5)
[2021-11-02 12:15] LABS: Amorphous Light (0-Heavy); Mucus Light (0-Heavy)
[2021-11-02 12:16] LABS: Bacteria Many /hpf
== END | disposition home or self-care (01) ==
LOC: LAB SHORT 21:14
PROVIDERS: Family Medicine
DX: N39.0 Urinary tract infection, site not specified (principal)
CPT/HCPCS: 81001

== ENCOUNTER 2021-11-13 12:08 | Inpatient (IN) | payer OTHER ==
[~2021-11-13] VITALS: Ht 154.9 cm; Wt 65.8 kg
[2021-11-13 12:34] LABS: BASOPHILS ABSOLUTE AUTO 0.05 K/mm3 (0.00-0.23); BASOPHILS PERCENT AUTO 1 % (0-2); EOSINOPHILS PERCENT AUTO 4 % (0-6); Hematocrit 31.2 % (33.0-51.0); Hemoglobin 10.1 g/dL (11.5-16.0); IMMATURE GRAN ABSOLUTE AUTO 0.01 K/mm3 (0.00-0.10); IMMATURE GRAN PERCENT AUTO 0 % (0-1); LYMPHOCYTES ABSOLUTE AUTO 1.08 K/mm3 (0.84-5.20); LYMPHOCYTES PERCENT AUTO 20 % (21-46); MONOCYTES ABSOLUTE AUTO 0.35 K/mm3 (0.16-1.47); MONOCYTES PERCENT AUTO 7 % (4-13); Mean Corpuscular HGB 31.5 pg (26.0-34.0); Mean Corpuscular HGB Conc 32.4 g/dL (31.5-36.5); Mean Corpuscular Volume 97 fL (80-100); NEUTROPHILS PERCENT AUTO 69 % (41-73); Platelet Count 164 K/mm3 (150-400); RDW Standard Deviation 53.3 fL (35.1-46.3); Red Blood Cell Count 3.21 M/mm3 (3.80-5.20); White Blood Cell Count 5.39 K/mm3 (4.00-11.30)
[2021-11-13 13:02] LABS: Troponin I <0.015 ng/mL (0.000-0.040)
[2021-11-13 13:07] LABS: Alanine Aminotransfer (ALT/SGP 34 U/L (12-78); Albumin, Blood 3.3 g/dL (3.4-5.0); Albumin/Globulin Ratio 0.8 (0.8-1.8); Alk Phos 147 U/L (50-136); Anion Gap 1 mmol/L (6-16); Aspartate Aminotrans (AST/SGOT 26 U/L (12-37); Bilirubin, Total 0.3 mg/dL (0.1-1.0); Blood Urea Nitrogen 64 mg/dL (8-24); Bun/Creatinine Ratio 35.6 (12.0-20.0); CO2, Blood 24 mmol/L (21-32); Chloride, Blood 111 mmol/L (98-108); Globulin, Blood 4.3 g/dL (2.2-4.0); Glomerular Filtration Rate 27 (60-); Glucose, Blood 147 mg/dL (70-99); Potassium, Blood 6.1 mmol/L (3.5-5.5); Sodium, Blood 136 mmol/L (136-145); Total Protein, Blood 7.6 g/dL (6.4-8.2)
[2021-11-13] MEDS ORDERED: Primidone50 MG PO (15:24)
[2021-11-13] MEDS ORDERED: LATA.005SO BOTHEYES (15:25)
[2021-11-13] MEDS ORDERED: LOSA50 PO (15:25)
[2021-11-13] MEDS ORDERED: Vancocin HCl125 MG (15:25)
[2021-11-13 16:35] LABS: Albumin, Blood 3.3 g/dL (3.4-5.0); Anion Gap 5 mmol/L (6-16); Blood Urea Nitrogen 68 mg/dL (8-24); Bun/Creatinine Ratio 38.2 (12.0-20.0); CO2, Blood 21 mmol/L (21-32); Calcium, Blood 9.2 mg/dL (8.5-10.1); Chloride, Blood 112 mmol/L (98-108); Creatinine, Blood 1.78 mg/dL (0.40-1.00); Glomerular Filtration Rate 27 (60-); Glucose, Blood 147 mg/dL (70-99); Phosphorus, Blood 4.7 mg/dL (2.5-4.9); Potassium, Blood 6.1 mmol/L (3.5-5.5); Sodium, Blood 138 mmol/L (136-145)
[2021-11-13] MEDS ORDERED: ACET325 PO (17:22)
[2021-11-13] MEDS ORDERED: ELIQUIS2.5 M1 PO (17:23)
[2021-11-13] MEDS ORDERED: ASPI81CH PO (17:24)
[2021-11-13] MEDS ORDERED: CATAPRES0.2 M1 PO (17:25)
[2021-11-13] MEDS ORDERED: Flonase 0.05% Nasal (17:27)
[2021-11-13] MEDS ORDERED: FUROSEMIDE40 MG PO (17:28)
[2021-11-13] MEDS ORDERED: BASAGLAR K100 UNIT/3 SC (17:29)
[2021-11-13] MEDS ORDERED: LEVO-T88 MC1 PO (17:30)
[2021-11-13] MEDS ORDERED: OMEP20ER PO (17:31)
[2021-11-13] MEDS ORDERED: K-Dur20 MEQ PO (17:33)
[2021-11-13] MEDS ORDERED: ROSU10TA PO (17:34)
--- NOTE | 2021-11-13 19:22 | NUR ---
Responded to rapid response. Pt hypoglycemia post treatement for hyperkalemia. Pt responded to dextrose. Suggested zofran post incident to prevent nause and vomiting. Pt has polst and AD on file. Was previously DNR now full code. Pt placed on tele due to histroy of dyrythmia and electrolyte imbalance. Pt denied headache or chest pain but states she feels cant talk right no facial droop noted. pt friend who is poa notified she is in hospital and of event. Will suggest neuro checks and increased monitoring tonight. Will speak with pt tomorrow about code status and will suggest new polst that better matches her AD. Pt has been seen by palliative care since 2015 she has been struggling with her quality of life since her illness. Will have chaplian see her also.
[2021-11-13] MEDS ORDERED: [UNRECOGNIZED DRUG - OTHER] PO (19:59)
--- NOTE | 2021-11-13 20:04 | NUR ---
This patients arrives to this unit from ED. pt noted to be clammy, lethargic, and extremely hard to respond. BP 104/39, HR 89. Charge nurse made aware. Rapid response called on patient. CBG checked and revealed 19. MORTAR MAKER came. 1 amp of D50 IV given to patient. Shortly patient became more responsive. BP 112/70, HR 74. Tele monitoring placed on patient, reading SR, HR 80s. Covering MD Dr Siu called and made aware. Receives telephone read back order from MD to d/c NS and order D51/2 NS at 100ml/hr. These orders entered. Pt's blood sugar is currently being monitored q2hr per protocol. Pt stable, A&Ox4. Bedside report given to incoming nurse. To continue to monitor pt.
[2021-11-13] MEDS ORDERED: THERA-D2000 UNIT PO (20:30)
[2021-11-13] MEDS ORDERED: CATAPRES0.1 MG PO (20:48)
[2021-11-13] MEDS ORDERED: MUPIROCIN22 G6 (20:50)
[2021-11-13] MEDS ORDERED: BENZ100A PO (20:51)
[2021-11-13] MEDS ORDERED: IMODIUM A-D2 M4 PO (20:52)
[2021-11-14 05:13] LABS: Bun/Creatinine Ratio 36.9 (12.0-20.0); Calcium, Blood 8.9 mg/dL (8.5-10.1); Creatinine, Blood 1.76 mg/dL (0.40-1.00); Potassium, Blood 5.2 mmol/L (3.5-5.5)
--- NOTE | 2021-11-14 05:15 | NUR ---
SHIFT SUMMARY PT WAS ADMITTED FOR HYPERKALEMIA. FUUL CODE STATUS. PT IS AAOX4 .PT'S BLOOD SUGAR WAS CHECKED EVERY 2 HOURS DUE TO PT'S BEING HYPOGLYCEMIC . LAST BS WAS 259. PT IS RECEIVING D51/2 NS @100 ORDERED . ALL MEDS WERE GIVEN PER EMAR. PT IS ABLE TO MAKE HER NEEDS KNOWN ,USING CALL LIGHT APPROPIETLY. NO ACUTE EVNTS THROUGH THE NIGHT. PT SLEPT INTERMITENTLTY. BED ALARM ON ,IN LOWER POSITION AND CALL LIGHT IN EASY REACH. WILL CONTINUE TO MONITOR IN CARE UNTIL GIVING REPORT TO ONCOMING NURSE.
--- NOTE | 2021-11-15 05:41 | NUR ---
PATIENT HAD AN UNEVENTFUL NIGHT. TOOK PM MEDICATIONS AND RESTED THE MAJORITY OF THE NIGHT. VITALS REVIEWED. FSBS CHECKED AT 0300 WAS 147. CALL LIGHT IN REACH.
[2021-11-15 06:20] LABS: Bun/Creatinine Ratio 33.5 (12.0-20.0); Calcium, Blood 8.5 mg/dL (8.5-10.1); Creatinine, Blood 2.03 mg/dL (0.40-1.00); Potassium, Blood 6.8 mmol/L (3.5-5.5)
[2021-11-15 12:42] LABS: Calcium, Blood 9.1 mg/dL (8.5-10.1); Creatinine, Blood 2.03 mg/dL (0.40-1.00); Potassium, Blood 5.1 mmol/L (3.5-5.5)
--- NOTE | 2021-11-16 04:31 | NUR ---
PATIENT HAS BEEN UP AND DOWN TO USE THE BEDSIDE COMMODE, SOMEWHAT FATIGUED FROM THIS. TOOK PM MEDICATIONS AND TOLERATED WELL. HS FSBS WAS 205. PATIENT RESTED SOME T/O THE NIGHT. CALL LIGHT IN REACH.
[2021-11-16 06:20] LABS: Bun/Creatinine Ratio 32.9 (12.0-20.0); Calcium, Blood 8.8 mg/dL (8.5-10.1); Creatinine, Blood 2.07 mg/dL (0.40-1.00); Potassium, Blood 4.8 mmol/L (3.5-5.5)
--- NOTE | 2021-11-16 08:32 | NUR ---
PT SATING 100% ON 3L O2 NC. SHE IS RA AT BASELINE. SHE IS CURRENTLY IN NO RESPIRATORY DISTRESS. DENIES SOB. PT IS BEING WEANED OFF O2. O2 IS DECREASED TO 2L NC AT THIS TIME. WILL CONTINUE TO MONITOR AND RECHECK IN ONE HOUR.
[2021-11-16] MEDS ORDERED: VISBIOME 112.51 EACH PO (10:59)
--- NOTE | 2021-11-16 14:09 | NUR ---
Received referral from nurse senior caregiver (Heydi Reyna) on 11/16/2021. Patient is to discharge 11/16/2021 with orders for home health and elected [facility]. Contacted patient's assisted living facility- [facility] ([facility]) to further discuss the above. Patient's assisted living facility is agreeable to the above. Patient is a previous home health patient and previously had a community referral from her PCP on 11/12/2021 prior to patient's admission to [facility]. Gathered all supporting documentation for referral (face sheet, face to face, med list, H&P, and most recent PT assessment) and sent to [facility] for review. No further interventions required. Rose Lockhart Referral Liaison
== END 2021-11-16 16:05 | disposition home health service (06) | DRG 641 ==
LOC: ER 12:08 → MEDS 16:10 → ERHOLD 16:10 → MEDS 18:12
PROVIDERS: Emergency Medicine; Family Medicine; ADMIT Internal Medicine Endocrinology, Diabetes & Metabolism
DX: E87.5 Hyperkalemia (principal); N18.4 Chronic kidney disease, stage 4 (severe); Z20.822 Contact with and (suspected) exposure to COVID-19; R07.9 Chest pain, unspecified; R00.1 Bradycardia, unspecified; I25.10 Atherosclerotic heart disease of native coronary artery without angina pectoris; I48.0 Paroxysmal atrial fibrillation; E03.9 Hypothyroidism, unspecified; I12.9 Hypertensive chronic kidney disease with stage 1 through stage 4 chronic kidney disease, or unspecified chronic kidney disease; D63.1 Anemia in chronic kidney disease; E11.51 Type 2 diabetes mellitus with diabetic peripheral angiopathy without gangrene; I73.9 Peripheral vascular disease, unspecified; E78.5 Hyperlipidemia, unspecified; M19.90 Unspecified osteoarthritis, unspecified site; K21.9 Gastro-esophageal reflux disease without esophagitis; E11.22 Type 2 diabetes mellitus with diabetic chronic kidney disease; Z79.4 Long term (current) use of insulin; Z88.0 Allergy status to penicillin; Z88.2 Allergy status to sulfonamides; Z88.8 Allergy status to other drugs, medicaments and biological substances; Z91.09 Other allergy status, other than to drugs and biological substances; Z28.21 Immunization not carried out because of patient refusal; Z79.01 Long term (current) use of anticoagulants; Z79.899 Other long term (current) drug therapy; Z79.52 Long term (current) use of systemic steroids; Z90.49 Acquired absence of other specified parts of digestive tract; Z95.1 Presence of aortocoronary bypass graft; Z90.710 Acquired absence of both cervix and uterus
CPT/HCPCS: 36415; 71045; 80048; 80053; 80069; 82947; 84132; 84484; 85025; 93005; 93010; 96374; 97110; 97161; 97166; 97530; 97535; 99285-25; A9270; J0610; J1815; J1940; J2405; J7030; J7042; J7799

== ENCOUNTER 2021-11-17 23:22 | Observation (INO) | payer OTHER ==
[~2021-11-17] VITALS: Ht 167.6 cm; Wt 84.8 kg
[~2021-11-17 23:22] MED LIST changes: +BASAGLAR K100 UNIT/3 SC; +CATAPRES0.1 MG PO; +CATAPRES0.2 M1 PO; +Flonase 0.05% Nasal; +IMODIUM A-D2 M4 PO; +LATA.005SO BOTHEYES; +LEVO-T88 MC1 PO; +MUPIROCIN22 G6; +Primidone50 MG PO; +THERA-D2000 UNIT PO; +VISBIOME 112.51 EACH PO; +Vancocin HCl125 MG; +[UNRECOGNIZED DRUG - OTHER] PO
[2021-11-18 00:01] LABS: BASOPHILS ABSOLUTE AUTO 0.02 K/mm3 (0.00-0.23); BASOPHILS PERCENT AUTO 1 % (0-2); EOSINOPHILS ABSOLUTE AUTO 0.05 K/mm3 (0.00-0.68); EOSINOPHILS PERCENT AUTO 2 % (0-6); Hematocrit 26.9 % (33.0-51.0); Hemoglobin 8.9 g/dL (11.5-16.0); IMMATURE GRAN ABSOLUTE AUTO 0.03 K/mm3 (0.00-0.10); IMMATURE GRAN PERCENT AUTO 1 % (0-1); LYMPHOCYTES ABSOLUTE AUTO 0.86 K/mm3 (0.84-5.20); LYMPHOCYTES PERCENT AUTO 26 % (21-46); MONOCYTES ABSOLUTE AUTO 0.23 K/mm3 (0.16-1.47); MONOCYTES PERCENT AUTO 7 % (4-13); Mean Corpuscular HGB 31.8 pg (26.0-34.0); Mean Corpuscular HGB Conc 33.1 g/dL (31.5-36.5); Mean Corpuscular Volume 96 fL (80-100); Mean Platelet Volume 11.4 fL (9.1-12.4); NEUTROPHILS ABSOLUTE AUTO 2.13 K/mm3 (1.96-9.15); NEUTROPHILS PERCENT AUTO 64 % (41-73); Platelet Count 144 K/mm3 (150-400); RDW Coefficient Variation 15.1 % (11.7-14.2); RDW Standard Deviation 52.4 fL (35.1-46.3); White Blood Cell Count 3.32 K/mm3 (4.00-11.30)
[2021-11-18] MEDS ORDERED: Vancocin HCl125 MG (00:08)
[2021-11-18 00:17] LABS: Alanine Aminotransfer (ALT/SGP 31 U/L (12-78); Albumin, Blood 2.8 g/dL (3.4-5.0); Albumin/Globulin Ratio 0.7 (0.8-1.8); Alk Phos 142 U/L (50-136); Anion Gap 6 mmol/L (6-16); Aspartate Aminotrans (AST/SGOT 26 U/L (12-37); Bilirubin, Total 0.2 mg/dL (0.1-1.0); Blood Urea Nitrogen 65 mg/dL (8-24); Bun/Creatinine Ratio 39.2 (12.0-20.0); CO2, Blood 25 mmol/L (21-32); Chloride, Blood 107 mmol/L (98-108); Creatinine, Blood 1.66 mg/dL (0.40-1.00); Globulin, Blood 4.3 g/dL (2.2-4.0); Glomerular Filtration Rate 29 (60-); Glucose, Blood 235 mg/dL (70-99); Sodium, Blood 138 mmol/L (136-145); Total Protein, Blood 7.1 g/dL (6.4-8.2)
[2021-11-18 00:26] LABS: U Amphetamine Screen Not Detected; U Barbituate Screen Not Detected; U Benzodiazapine Screen Not Detected; U Buprenorphine Screen Not Detected; U Cannabinoids Screen Not Detected; U Cocaine Screen Not Detected; U Methadone Screen Not Detected; U Methamphetamine Screen Not Detected; U Opiates Screen Not Detected; U Oxycodone Screen Not Detected; U Phencyclidine Screen Not Detected; U Propoxyphene Screen Not Detected
[2021-11-18 00:33] LABS: Ethanol (Alcohol), Blood, Med <3 mg/dL
[2021-11-18 00:41] LABS: Thyroid Stimulating Hormone 0.682 uIU/mL (0.360-4.800); Troponin I <0.015 ng/mL (0.000-0.040)
[2021-11-18 01:26] LABS: Source, Urine Straight Cath
[2021-11-18 01:34] LABS: Bilirubin, Urine Neg (Neg); Blood, Urine 1+ (Neg); Glucose Qualitative, Urine 2+ (Neg); Ketones, Urine Neg (Neg); Leukocyte Esterase, Urine 3+ (Neg); Nitrite, Urine Pos (Neg); Protein, Urine 2+ (Neg); Urobilinogen, Urine NORM (Normal)
[2021-11-18 01:39] LABS: Appearance, Urine Hazy (Clear); Color, Urine Pale Yellow (P-Yellow)
[2021-11-18 01:40] LABS: Bacteria Many /hpf; Red Blood Cells, Urine Rare /hpf (0-2); Squamous Epithelial Cells Few /hpf (Few); White Blood Cells, Urine 50-100 /hpf (0-5)
[2021-11-18 02:58] LABS: Influenza A, PCR NEGATIVE (NEGATIVE); Influenza B, PCR NEGATIVE (NEGATIVE); Resp Syncytial Virus, PCR NEGATIVE (NEGATIVE); SARS-Cov-2 (COVID-19) PCR, MMC NEGATIVE (NEGATIVE)
[2021-11-18 05:27] LABS: BASOPHILS ABSOLUTE AUTO 0.02 K/mm3 (0.00-0.23); BASOPHILS PERCENT AUTO 1 % (0-2); EOSINOPHILS ABSOLUTE AUTO 0.07 K/mm3 (0.00-0.68); EOSINOPHILS PERCENT AUTO 2 % (0-6); IMMATURE GRAN ABSOLUTE AUTO 0.01 K/mm3 (0.00-0.10); IMMATURE GRAN PERCENT AUTO 0 % (0-1); LYMPHOCYTES ABSOLUTE AUTO 0.51 K/mm3 (0.84-5.20); LYMPHOCYTES PERCENT AUTO 14 % (21-46); MONOCYTES PERCENT AUTO 8 % (4-13); Mean Corpuscular HGB Conc 33.3 g/dL (31.5-36.5); Mean Corpuscular Volume 96 fL (80-100); Mean Platelet Volume 11.7 fL (9.1-12.4); NEUTROPHILS ABSOLUTE AUTO 2.88 K/mm3 (1.96-9.15); NEUTROPHILS PERCENT AUTO 76 % (41-73); Platelet Count 126 K/mm3 (150-400); RDW Coefficient Variation 14.6 % (11.7-14.2); RDW Standard Deviation 51.3 fL (35.1-46.3); White Blood Cell Count 3.79 K/mm3 (4.00-11.30)
--- NOTE | 2021-11-18 12:09 | NUR ---
Spiritual Care visit. Off site spiritual care referral. Pt. was comfortably resting, and welcomed my visit. Facilitated life review, and present diagnosis awareness. Pt. displayed understanding of her current situation. Pt. displayed distress regarding her spiritual condition. Explored georges and belief. Pt.displayed evidence of comprehension and improved hope. Prayed with Pt. Pt. verbalized gratitude and welcomed me to return. I will monitor and consider further her spiritual concerns.
--- NOTE | 2021-11-18 17:47 | NUR ---
PT A/O X4, SHE ANSWERS QUESTIONS APPROPRIATELY, BUT HAS CHANGES IN MENTATION, SHE WILL BE CALM AND FLAT THEN ANXIOUS PRESSING CALL LIGHT NUMEROUS TIMES TO REPORT MULTIPLE COMPLAINTS. PT REPORTS LOWER BACK PAIN THAT TYLENOL DID NOT PROVIDE CONTINUED RELIEF, HEAT THERAPY APPLIED TO LOWER BACK PT'S SKIN WELL PROTECTED WITH PILLOW CASE AND TOWEL TO PROTECT FROM HEAT INJURY, AND LIDOCAINE PATCH APPLIED TO LOW BACK, SHE IS ALSO REPOSITIONED NUMEROUS TIMES T/O THE DAY FOR PAIN. VSS. NOT ACUTE DISTRESS NOTED, PT UP TO BEDSIDE COMMODE WITH 1 PERSON ASSIST WITH FWW AND GAIT BELT
--- NOTE | 2021-11-18 22:26 | NUR ---
ASSUMED CARE OF PT AT 1900. A/OX4. SLOW TO RESPOND. DNI. PATIENT REPORTS PAIN IMPROVED 3/10 PAIN (IMPROVED SINCE REPOSITIONING ON HER SIDE). MAINTAINS ABOVE 95% ON RA, LS CLEAR T/O WITH SHALLOW RESPIRATIONS. DENIES CP/PRESSURE. SCATTERED BRUISING T/O. VSS. PATIENT RESTING COMFORTABLY IN BED. WILL UPDATE CHANGES OCCUR.
[2021-11-19 04:20] LABS: BASOPHILS ABSOLUTE AUTO 0.02 K/mm3 (0.00-0.23); BASOPHILS PERCENT AUTO 1 % (0-2); EOSINOPHILS ABSOLUTE AUTO 0.08 K/mm3 (0.00-0.68); EOSINOPHILS PERCENT AUTO 2 % (0-6); Hematocrit 23.7 % (33.0-51.0); Hemoglobin 7.8 g/dL (11.5-16.0); IMMATURE GRAN ABSOLUTE AUTO 0.01 K/mm3 (0.00-0.10); IMMATURE GRAN PERCENT AUTO 0 % (0-1); LYMPHOCYTES ABSOLUTE AUTO 0.59 K/mm3 (0.84-5.20); LYMPHOCYTES PERCENT AUTO 17 % (21-46); MONOCYTES ABSOLUTE AUTO 0.26 K/mm3 (0.16-1.47); MONOCYTES PERCENT AUTO 7 % (4-13); Mean Corpuscular HGB 31.8 pg (26.0-34.0); Mean Corpuscular HGB Conc 32.9 g/dL (31.5-36.5); Mean Corpuscular Volume 97 fL (80-100); Mean Platelet Volume 11.9 fL (9.1-12.4); NEUTROPHILS ABSOLUTE AUTO 2.55 K/mm3 (1.96-9.15); NEUTROPHILS PERCENT AUTO 73 % (41-73); Platelet Count 135 K/mm3 (150-400); RDW Coefficient Variation 15.1 % (11.7-14.2); RDW Standard Deviation 53.1 fL (35.1-46.3); Red Blood Cell Count 2.45 M/mm3 (3.80-5.20); White Blood Cell Count 3.51 K/mm3 (4.00-11.30)
[2021-11-19 04:54] LABS: Bun/Creatinine Ratio 36.7 (12.0-20.0); Calcium, Blood 8.6 mg/dL (8.5-10.1); Creatinine, Blood 1.69 mg/dL (0.40-1.00); Potassium, Blood 4.1 mmol/L (3.5-5.5)
--- NOTE | 2021-11-19 10:18 | NUR ---
PATIENT ALERT AND ORIENTED X4. SLOW TO RESPOND AND SOFT SPOKEN. PERRLA. ABLE TO MOVE ALL EXTREMITIES IN BED. HANDS AND FEET SHAKY IN BED. PATIENT STATES THE SHAKING COMES AND GOES. 1 PERSON SBA WITH FRONT WHEEL WALKER. UP IN RECLINER AT THIS TIME. ON ROOM AIR, SHALLOW BREATHING. LUNGS SOUNDING CLEAR AND DIM. TELE SHOWING SINUS RHYTHM WITH HR 70'S THIS AM. DENIES CHEST PAIN/PRESSURE. HISTORY OF PACER. DENIES ABDOMINAL PAIN/NAUSEA. ATTENDS IN PLACE. OVERALL WEAKNESS NOTED. EATING WELL. DRINKING WATER. TAKES PILLS WHOLE. PHYSICAL THERAPY IN TO WORK WITH PATIENT. VERY SMALL DROP IN BP WHEN UP WALKING AROUND. CALL LIGHT IN REACH. WILL CONTINUE TO MONITOR.
--- NOTE | 2021-11-19 14:39 | NUR ---
TRANSFER: NO ACUTE CHANGES. PATIENT VITAL REMAINS STABLE. SEE PREVIOUS NOTE. DR. JACKSON BY TO SEE PATIENT. NO NEW ORDERS. MEDICAL STATUS WITH TELE. TRANSFER OVER TO SURGICAL AT THIS TIME. PATIENT LEFT UNIT WITH ALL PERSONAL BELONGINGS. REPORTED OFF TO NEYMAR FROM SURGICAL.
--- NOTE | 2021-11-19 16:44 | NUR ---
SHIFT SUMMARY PT TRANSFERRED FROM PCU. PT WAS RECENTLY READMITTED FOR SEPSIS AND EXPERIENCING ALTERED MENTAL STATUS. PT IS CURRENTLY A/O X4 BUT SOMETIMES SLOW TO RESPOND. SHE IS CURRENTLY UP IN A CHAIR AND 1 ASSIST TO GET UP. NO COMPLAINTS AT THIS TIME. CALL LIGHT IN REACH. VSS.
[2021-11-20 04:48] LABS: BASOPHILS ABSOLUTE AUTO 0.03 K/mm3 (0.00-0.23); BASOPHILS PERCENT AUTO 1 % (0-2); EOSINOPHILS PERCENT AUTO 5 % (0-6); Hematocrit 24.6 % (33.0-51.0); IMMATURE GRAN ABSOLUTE AUTO 0.01 K/mm3 (0.00-0.10); IMMATURE GRAN PERCENT AUTO 0 % (0-1); LYMPHOCYTES ABSOLUTE AUTO 0.84 K/mm3 (0.84-5.20); LYMPHOCYTES PERCENT AUTO 38 % (21-46); MONOCYTES ABSOLUTE AUTO 0.34 K/mm3 (0.16-1.47); MONOCYTES PERCENT AUTO 15 % (4-13); Mean Corpuscular HGB 31.6 pg (26.0-34.0); Mean Corpuscular HGB Conc 32.5 g/dL (31.5-36.5); Mean Corpuscular Volume 97 fL (80-100); Mean Platelet Volume 11.2 fL (9.1-12.4); NEUTROPHILS ABSOLUTE AUTO 0.91 K/mm3 (1.96-9.15); NEUTROPHILS PERCENT AUTO 41 % (41-73); Platelet Count 135 K/mm3 (150-400); RDW Standard Deviation 53.1 fL (35.1-46.3); Red Blood Cell Count 2.53 M/mm3 (3.80-5.20); White Blood Cell Count 2.23 K/mm3 (4.00-11.30)
--- NOTE | 2021-11-20 05:28 | NUR ---
SHIFT SUMMARY PT AOX3 SLOW TO RESPOND. COOPERATIVE WITH CARE. APPERS TO HAVE SOME TREMORS (CHRONIC). NO COMPLAINTS EXCEPT FOR PAIN LAST NIGHT. PAIN MANAGED WITH TYLENOL. TOLERATING PO INTAKE. DENIES N/V. VSS. TEMP HAS BEEN ON 96F ALL NIGHT. PT DENIES CP AND SOB. PT FEELS WELL RESTED OVERNIGHT. AMBULATES WITH 1 MIN ASSIST. TOLERATING IT WELL. CALL LIGHT WITHIN REACH. WILL CONT TO MONITOR AND PROVIDE REPORT TO ONCOMING NURSE.
[2021-11-20 05:42] LABS: Bun/Creatinine Ratio 32.6 (12.0-20.0); Calcium, Blood 8.8 mg/dL (8.5-10.1); Creatinine, Blood 1.87 mg/dL (0.40-1.00); Potassium, Blood 3.9 mmol/L (3.5-5.5)
--- NOTE | 2021-11-20 07:24 | NUR ---
ASSESSMENT: PT IS SLEEPING. RESP E/U. NO S/S DISTRESS. CALL LIGHT IN REACH. WILL ALLOW REST AND FULLY ASSESS WHEN PT IS AWAKE AND ALERT.
--- NOTE | 2021-11-20 11:14 | NUR ---
THERAPY: PT IN ROOM TO WORK WITH PATIENT. WILL MONITOR PROGRESS.
--- NOTE | 2021-11-20 14:34 | NUR ---
BLOOD PRESSURE: PT SBP 181 THIS AFTERNOON WHILE RESTING IN BED. TELE UNCHANGED. PT DENIES CP. PT NOT CURRENTLY RECEIVING HOME CATAPRES. NOTIFIED AND RESTARTED. WILL GIVE FIRST DOSE STAT.
--- NOTE | 2021-11-20 16:54 | NUR ---
BLOOD PRESSURE: PT BLOOD PRESSURE IMPROVED AFTER CATAPRES DOSE, NOW SBP 161. PT WILL GET ANOTHER EVENING DOSE. WILL CONT TO MONITOR.
--- NOTE | 2021-11-20 18:09 | NUR ---
PT HAS BEEN STABLE THIS SHIFT. PT HYPERTENSIVE THIS AFTERNOON, RESUMED ON HOME MED WITH IMPROVED RESULT. TELE, NSR. PT MENTATION IMPROVED FROM ADMISSION, CALLS APPROPRIATELY. WORKED WELL WITH THERAPY AND STAFF TO MOBILIZE TO CHAIR. VOIDS ON COMMODE. SBA OOB. PT DENIES URINARY SYMPTOMS BUT AWAITING URINE CULTURES. VIOLA DIET, NEEDS MIN ASSIST WITH MEAL SET UP. PLAN TO DC BACK TO [facility] WHEN ABLE.
[2021-11-21 04:39] LABS: BASOPHILS ABSOLUTE AUTO 0.03 K/mm3 (0.00-0.23); BASOPHILS PERCENT AUTO 1 % (0-2); EOSINOPHILS ABSOLUTE AUTO 0.12 K/mm3 (0.00-0.68); EOSINOPHILS PERCENT AUTO 5 % (0-6); Hematocrit 25.7 % (33.0-51.0); Hemoglobin 8.4 g/dL (11.5-16.0); IMMATURE GRAN ABSOLUTE AUTO 0.02 K/mm3 (0.00-0.10); IMMATURE GRAN PERCENT AUTO 1 % (0-1); LYMPHOCYTES ABSOLUTE AUTO 1.09 K/mm3 (0.84-5.20); LYMPHOCYTES PERCENT AUTO 42 % (21-46); MONOCYTES PERCENT AUTO 12 % (4-13); Mean Corpuscular HGB 31.6 pg (26.0-34.0); Mean Corpuscular HGB Conc 32.7 g/dL (31.5-36.5); Mean Corpuscular Volume 97 fL (80-100); Mean Platelet Volume 11.1 fL (9.1-12.4); NEUTROPHILS ABSOLUTE AUTO 1.02 K/mm3 (1.96-9.15); NEUTROPHILS PERCENT AUTO 40 % (41-73); Platelet Count 142 K/mm3 (150-400); RDW Coefficient Variation 15.2 % (11.7-14.2); Red Blood Cell Count 2.66 M/mm3 (3.80-5.20); White Blood Cell Count 2.58 K/mm3 (4.00-11.30)
--- NOTE | 2021-11-21 04:57 | NUR ---
SHIFT SUMMARY AOX4. APPROPRIATE AND PLEASANT. COOPERATIVE WITH CARE. NO ACUTE CHANGES OVERNIGHT. REMAIN HYPERTENSIVE BUT HAS IMPROVED FROM YESTERDAY. PT VOIDS ON BSC WITH 1 SBA. URINE CULTURE RESULT WITH +E COLI. ABX GIVEN VIA IV LAST NIGHT. TOLERATING PO INTAKE. DENIES N/V. PT REPORTS FEELING BETTER THIS MORNING. WELL RESTED AND SLEPT GOOD OVERNIGHT. CALL LIGHT WITHIN REACH. WILL PROVIDE REPORT TO ONCOMING NURSE.
[2021-11-21 05:00] LABS: Bun/Creatinine Ratio 33.5 (12.0-20.0); Calcium, Blood 9.2 mg/dL (8.5-10.1); Creatinine, Blood 1.85 mg/dL (0.40-1.00); Potassium, Blood 3.8 mmol/L (3.5-5.5)
--- NOTE | 2021-11-21 18:21 | NUR ---
PATIENT CURRENTLY SITTING UP IN CHAIR EATING MEAL. NO SIGNS OR SYMPTOMS ACUTE DISTRESS NOTED. CALL LIGHT AND WATER IN EASY REACH. ABLE TO MAKE NEEDS AND WANTS KNOWN. MEDICATED FOR PAIN AND ANXIETY TODAY PER ORDERS SEE EMAR. PATIENT IS AAOX4. WORKED WITH PT TODAY AND DID WELL, WALKED IN THE ARRIAZA WITH WALKER. PATIENT HAS BEEN USING THE RESTROOM TODAY WELL INSTEAD OF BSC. JAUN DE LA CRUZ.
--- NOTE | 2021-11-21 18:24 | NUR ---
PATIENT CURRENTLY LYING IN BED WITH NO SIGNS OR SYMPTOMS ACUTE DISTRESS NOTED. PATIENT SAT UP IN CHAIR TODAY, USED BSC WITH MIN ASSIST. AAOX4 BUT IS FORGETFUL AT TIMES. PATIENT IS ABLE TO MAKE NEEDS AND WANTS KNOWN. CALL LIGHT AND WATER IN EASY REACH. PATIENT WILL DC TOMORROW SEARS CANNOT TAKE PATIENT BACK TODAY. WILL MONITOR.
--- NOTE | 2021-11-22 05:59 | NUR ---
SHIFT SUMMARY PT AOX4. SLOW TO RESPOND. VSS. DENIES CHEST PAIN AND SOB. PT REPORTS SOME MILD PAIN, MEDICATED WITH TYLENOL X1 BEFORE BED. USED BSC WITH 1 SBA, FWW, AND GB. TOLERATES PO INTAKE. DENIES N/V. IV ABX ADMINISTERED. PT SLEPT GOOD OVERNIGHT. PLAN FOR DISCHARGE TODAY TO [facility]. CALL LIGHT WITHIN REACH. WILL PROVIDE REPORT TO ONCOMING NURSE.
--- NOTE | 2021-11-22 09:04 | NUR ---
PATIENT PLACED IN CONTACT ISOLATION FOR VRE IN URINE AT THIS TIME. EXPLAINED TO PATIENT. NO SIGNS OR SYMPTOMS ACUTE DISTRESS NOTED. CALL LIGHT AND WATER IN EASY REACH. FEEDS SELF WITH WEIGHTED UTENSILS WITH LARGE HANDLES. WILL MONITOR.
--- NOTE | 2021-11-22 11:10 | NUR ---
I called [facility] to request a call back from their nurse in regards to patient being appropriate for discharge. [facility]'s nurse will need to do an assessment. She does have VRE contact precautions, per Dr. Lawton and most recent nurse note.
--- NOTE | 2021-11-22 15:52 | NUR ---
DISCHARGE: ATTEMPTED TO CALL REPORT TO SOMEONE AT [facility], ELIZ AT [facility] STATED SHE DID NOT NEED REPORT, ALL SHE NEEDED WAS DC MED LIST THAT SHE WAS HOLDING AT THE TIME. PATIENT IS CURRENTLY AWAITING TRANSPORT TO GET HERE TO TAKE HER TO [facility]. IV REMOVED, TELE REMOVED. NO SIGNS OR SYMPTOMS ACUTE DISTRESS NOTED AT THIS TIME.
--- NOTE | 2021-11-22 16:00 | NUR ---
Per chart review with Dr. Lawton, patient appropriate for discharge to [facility] today. I called a third time and was able to confirm transfer for this afternoon. Wheelchair transport has been scheduled via [facility] ([facility]) with [facility] who confirmed time of 4:00PM. Patient, patient's nurse, [facility], and Dr. Lawton, and patient's POA (Leia) all made aware of patient's discharge back to [place]. Patient feels safe to return and denies barriers to discharge. Patient to continue HH with [facility]. Rose Lockhart also aware patient is discharging today.
--- NOTE | 2021-11-22 17:26 | NUR ---
Patient is a [facility] patient who was transferred to [facility] on 11/17/2021 due to sepsis. Patient discharged today- 11/22/2021 with resumption of home health orders. Gathered supporting documentation for resumption (face sheet, discharge order, med list, and H&P) and faxed to [facility] for review. No further interventions required. Rose Lockhart Referral Liaison
== END 2021-11-22 16:18 | disposition home health service (06) ==
LOC: ER 23:22 → PCU 23:23 → SURS 11-19 14:53
PROVIDERS: Family Medicine; Student in an Organized Health Care Education/Training Program; ADMIT Family Medicine
DX: A41.9 Sepsis, unspecified organism (principal); N39.0 Urinary tract infection, site not specified; I25.10 Atherosclerotic heart disease of native coronary artery without angina pectoris; K21.9 Gastro-esophageal reflux disease without esophagitis; E03.9 Hypothyroidism, unspecified; E78.5 Hyperlipidemia, unspecified; I13.10 Hypertensive heart and chronic kidney disease without heart failure, with stage 1 through stage 4 chronic kidney disease, or unspecified chronic kidney disease; E11.22 Type 2 diabetes mellitus with diabetic chronic kidney disease; N18.4 Chronic kidney disease, stage 4 (severe); A04.72 Enterocolitis due to Clostridium difficile, not specified as recurrent; I48.0 Paroxysmal atrial fibrillation; I45.10 Unspecified right bundle-branch block; Z88.0 Allergy status to penicillin; Z88.2 Allergy status to sulfonamides; Z88.8 Allergy status to other drugs, medicaments and biological substances; Z91.09 Other allergy status, other than to drugs and biological substances; Z74.09 Other reduced mobility; Z79.4 Long term (current) use of insulin; Z20.822 Contact with and (suspected) exposure to COVID-19
CPT/HCPCS: 0241U; 36415; 51701; 70450; 71045; 80048; 80053; 81001; 82947; 83605; 84443; 84484; 85025; 87040; 87077; 87086; 87186; 93005; 93010; 94760; 96365; 96375; 97110; 97110-CO; 97116; 97162; 97165; 97530; 97530-CO; 99285-25; A9270; G0378; G0480; J0696; J0744; J1815; J2405; J7030; J7050

== ENCOUNTER 2021-11-29 07:39 | Emergency (ER) | payer OTHER ==
[~2021-11-29] VITALS: Ht 167.6 cm; Wt 81.7 kg
[~2021-11-29 07:39] MED LIST changes: +Voltaren100 GM TOP
[2021-11-29 08:37] LABS: BASOPHILS ABSOLUTE AUTO 0.04 K/mm3 (0.00-0.23); BASOPHILS PERCENT AUTO 1 % (0-2); EOSINOPHILS PERCENT AUTO 2 % (0-6); Hematocrit 24.9 % (33.0-51.0); Hemoglobin 8.4 g/dL (11.5-16.0); IMMATURE GRAN ABSOLUTE AUTO 0.02 K/mm3 (0.00-0.10); IMMATURE GRAN PERCENT AUTO 0 % (0-1); LYMPHOCYTES ABSOLUTE AUTO 0.62 K/mm3 (0.84-5.20); LYMPHOCYTES PERCENT AUTO 14 % (21-46); MONOCYTES ABSOLUTE AUTO 0.29 K/mm3 (0.16-1.47); MONOCYTES PERCENT AUTO 6 % (4-13); Mean Corpuscular HGB 31.6 pg (26.0-34.0); Mean Corpuscular HGB Conc 33.7 g/dL (31.5-36.5); Mean Corpuscular Volume 94 fL (80-100); Mean Platelet Volume 11.1 fL (9.1-12.4); NEUTROPHILS ABSOLUTE AUTO 3.46 K/mm3 (1.96-9.15); NEUTROPHILS PERCENT AUTO 76 % (41-73); Platelet Count 142 K/mm3 (150-400); RDW Coefficient Variation 15.7 % (11.7-14.2); Red Blood Cell Count 2.66 M/mm3 (3.80-5.20); White Blood Cell Count 4.53 K/mm3 (4.00-11.30)
[2021-11-29 09:06] LABS: Alanine Aminotransfer (ALT/SGP 43 U/L (12-78); Albumin, Blood 2.9 g/dL (3.4-5.0); Albumin/Globulin Ratio 0.7 (0.8-1.8); Alk Phos 113 U/L (50-136); Anion Gap 8 mmol/L (6-16); Aspartate Aminotrans (AST/SGOT 44 U/L (12-37); Bilirubin, Total 0.2 mg/dL (0.1-1.0); Blood Urea Nitrogen 42 mg/dL (8-24); Bun/Creatinine Ratio 18.3 (12.0-20.0); CO2, Blood 25 mmol/L (21-32); Calcium, Blood 8.8 mg/dL (8.5-10.1); Chloride, Blood 102 mmol/L (98-108); Creatinine, Blood 2.29 mg/dL (0.40-1.00); Globulin, Blood 3.9 g/dL (2.2-4.0); Glomerular Filtration Rate 20 (60-); Glucose, Blood 129 mg/dL (70-99); Potassium, Blood 3.4 mmol/L (3.5-5.5); Sodium, Blood 135 mmol/L (136-145); Total Protein, Blood 6.8 g/dL (6.4-8.2); Troponin I <0.015 ng/mL (0.000-0.040)
--- NOTE | 2021-11-29 10:54 | NUR ---
Received referral from [facility] Video Game Technician (Kathy Valencia) on 11/29/2021. Patient is to discharge with orders for hospice and family elected [facility]. Gathered supporting documentation for referral (face sheet, labs, imaging, progress notes, palliative care note, and H&P) and sent to [facility] field administrative assistant (Joe Quiñonez) for review of hospice appropriateness and ability to accept patient onto service post discharge. Will await further information from hospice field administrative assistant regarding the above. Rose Lockhart Referral Liaison
--- NOTE | 2021-11-29 12:43 | NUR ---
pt back in from nursing home. Not wanting admission chose hospice. did a new polst for dnr anc comfort measures. Sent original with pt poa back to nursing home. hospice notified. Reviewed all hospice agencies. they chose to stay with [facility] .
--- NOTE | 2021-11-29 16:02 | NUR ---
Late Entry from 11/29/2021 at 1215: Contacted [facility] chemical laboratory scientist (Joe Torrez) regarding patient's hospice appropriateness. At this time, it is unclear if patient is hospice appropriate. As such a consult will be conducted on 11/30/2021 and admission will be made if patient is appropriate. No further interventions required. Rose Lockhart Referral Liaison
== END 2021-11-29 12:34 | disposition home or self-care (01) ==
LOC: ER 07:39
PROVIDERS: Emergency Medicine
DX: R55 Syncope and collapse (principal); Z88.6 Allergy status to analgesic agent; Z79.4 Long term (current) use of insulin; Z79.899 Other long term (current) drug therapy
CPT/HCPCS: 36415; 80053; 84484; 85025; 93005; 93010; 99284-25